=== PATIENT | male | born 1940 | race Caucasian/White ===

== ENCOUNTER 2019-08-07 00:08 | Inpatient (IN) | payer OTHER ==
--- NOTE | 2019-08-07 00:46 | PDOC ---
History of Present Illness - General Stated Complaint: SHORTNESS OF BREATH Time Seen by Provider: 08/07/19 00:45 - History of Present Illness Initial Comments: 08/07/19 01:00 78M with pmh of skin basal cell carcinoma, blindness, hemiplegia s/p strokex2 on Plavix presents sent from [facility] on [facility] who presetns with shortness of breath and fever. The patient was vomiting at 2100 at the nursing facility and was satting to 75 on RA. He was placed on 2L NC without effect. By EMS he was placed on 15L NRB. No prior illness earlier in the week. [facility] provides no further collateral. ROS - limited 2/d disabiltiy PE GENERAL: AMS, can follow some commants HEAD: No signs of trauma, normocephalic, atraumatic EYES: PERRLA, EOMI, sclera anicteric, conjunctiva clear ENT: wearing NRB NECK: Normal ROM, supple LUNGS: No distress, speaks full sentences, clear to auscultation anteriorly, unable to sit up for posterior auscultation HEART: Regular rate and rhythm, normal S1 and S2, no murmurs, rubs or gallops, peripheral pulses normal and equal bilaterally. ABDOMEN: Soft, nontender, No guarding, no rebound. No masses EXTREMITIES : No clubbing or cyanosis. NEUROLOGICAL: AMS SKIN: slightly diaphoretic MDM DDX including but not limited to: pneumonia r.o acs vs chf W/U: - sepsis set TX: - tyleno, ivf ED Course: lactic 2.8, increased neutrophil % plan for admission Rosa Fraga, PGY2 Emergency Medicine 08/07/19 17:18 Past History - Past Medical History Allergies/Adverse Reactions: Allergies Allergy/AdvReac Type Severity Reaction Status Date / Time No Known Allergies Allergy Verified 09/24/17 13:43 Home Medications: Ambulatory Orders Atorvastatin Ca [Lipitor] 10 mg PO HS 08/07/19 B1/B2/Niacin/B12/Protease [B-Complex with B-12 Tablet] 1 each PO DAILY 08/07/19 Chlorpromazine HCl 25 mg PO DAILY 08/07/19 Cholecalciferol (Vitamin D3) [Vitamin D] 2,000 unit PO DAILY 08/07/19 Clopidogrel Bisulfate [Plavix -] 75 mg PO DAILY 08/07/19 Docusate Sodium [Colace] 100 mg PO DAILY 08/07/19 Famotidine [Pepcid] 40 mg PO DAILY 08/07/19 Ferrous Sulfate 325 mg PO DAILY 08/07/19 Losartan Potassium [Cozaar -] 50 mg PO DAILY 08/07/19 Metoprolol Succinate [Toprol Xl] 50 mg PO DAILY 08/07/19 Multivitamin [One-Daily Multi-Vitamin] 1 each PO DAILY 08/07/19 Polyethylene Glycol 3350 [Miralax (For Daily Use) -] 17 gm PO PRN 08/07/19 Potassium Chloride 10 meq PO DAILY 08/07/19 Sertraline HCl [Zoloft] 100 mg PO DAILY 08/07/19 Tramadol HCl [Ultram] 50 mg PO BID 08/07/19 Cancer: Yes (basal cell carcinoma of breast) CVA: Yes (tia, 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) HTN: Yes Hypercholesterolemia: Yes Psychiatric Problems: Yes (anxiety, major depressive disorder) - Surgical History Appendectomy: Yes - Suicide/Smoking/Psychosocial Hx Smoking History: Never smoked Have you smoked in the past 12 months: No If you are a former smoker, when did you quit?: 50-60 years ago Hx Alcohol Use: No Drug/Substance Use Hx: No Substance Use Type: None Hx Substance Use Treatment: No ED Treatment Course - LABORATORY CBC & Chemistry Diagram: 08/07/19 06:22 08/07/19 06:22 *DC/Admit/Observation/Transfer Diagnosis at time of Disposition: Pneumonia - Discharge Dispostion Decision to Admit order: Yes - Referrals - Patient Instructions - Post Discharge Activity
[2019-08-07] MEDS ORDERED: ACETAMINOPHEN 1000 MG/100 ML VIAL (NON FORMULARY) IVPB ONE (00:47)
[2019-08-07] MEDS ORDERED: SODIUM CHLORIDE 1,000 ML IV SCH ×2 (01:00→01:52)
--- NOTE | 2019-08-07 01:14 | PDOC ---
Attending Attestation - Resident Resident Name: Rosa Fraga - ED Attending Attestation I have performed the following: I have examined & evaluated the patient, The case was reviewed & discussed with the resident, I agree w/resident's findings & plan, Exceptions are as noted - HPI HPI: 08/07/19 01:10 78 yo male [facility] for [facility] and increased work of breathing HPI: Patient started vomiting at 9pm and the nurses at the prison noted that he was hypoxic with a pulse ox in the 70s and required supplemental oxygen - Physicial Exam PE: 08/07/19 01:14 patient was febrile, tachycardic, tachypneic and diaphoretic upon arrival , increased respiratory rate head ncat lungs + rhonchi cvs tachycardia abd flat skin diaphoretic extremities no edema neuro currently nonverbal - Medical Decision Making 08/07/19 01:22 past medical history for CVAs (nontraumatic intracranial hemorrhage), legal blindness, basal cell ca, hyperlipidemia, hypertension concern for aspiration pneumonia, will do sepsis w/u, cxr,antibiotics, supplemental O2 and admission 08/07/19 01:26 08/07/19 02:15 cxr c/w rt infiltrate and pt admitted
[2019-08-07] MEDS ORDERED: ACETAMINOPHEN INJECTION 100 ML IVPB ONE (01:45)
[2019-08-07 01:49] LABS: BASO % 0.1 % (0-2.0); EOS % 0.1 % (0-4.5); HEMATOCRIT 39.5 % (35.4-49); HEMOGLOBIN 12.9 GM/dL (11.7-16.9); LYMPH % 2.3 % (8-40); MCH 26.9 pg (25.7-33.7); MCHC 32.7 g/dl (32.0-35.9); MEAN CELL VOLUME 82.1 fl (80-96); MEAN PLT VOLUME 7.6 fl (7.5-11.1); MONO % 2.3 % (3.8-10.2); NEUT % 95.2 % (42.8-82.8); PLATELET COUNT 216 K/MM3 (134-434); RBC 4.81 M/mm3 (4.00-5.60); RDW 18.9 % (11.9-15.9); WHITE BLOOD COUNT 7.3 K/mm3 (4.0-10.0)
[2019-08-07 01:55] LABS: VENOUS PC02 39.4 mmHg (38-52); VENOUS PH 7.41 (7.31-7.41); VENOUS PO2 57.3 mmHg (28-48)
[2019-08-07] MEDS ORDERED: AMPICILLIN NA/SULBACTAM NA 3 GM in SODIUM CHLORIDE 100 ML IVPB ONE (02:18)
[2019-08-07 02:21] LABS: ALBUMIN 3.6 g/dl (3.4-5.0); BILIRUBIN,TOTAL 0.4 mg/dL (0.2-1); BLOOD UREA NITROGEN 22.9 mg/dL (7-18); CALCIUM 9.2 mg/dL (8.5-10.1); CREATININE 1.1 mg/dL (0.55-1.3); POTASSIUM 4.3 mmol/L (3.5-5.1); TOT PROT 7.3 g/dl (6.4-8.2)
[2019-08-07 02:26] LABS: PLATELET ESTIMATE ADEQUATE
--- NOTE | 2019-08-07 04:02 | HP ---
CHIEF COMPLAINT: shortness of breath, cough PCP: Dr. Mahesh Ceballos HISTORY OF PRESENT ILLNESS: Farooq Wilcox is a 78 year old male with a past medical history of basal cell carcinoma, blindness, stroke, hypertension, colon CA, HLD who presents from [facility] after being reported that he was more short of breath and with a fever. The patient was noted to be sleeping more by his who visits him every day and with an cough with occasional sputum. Otherwise, the patient was in his usual state of health and at his normal mental baseline where he can respond to basic questions, is oriented to self and sometimes to location, and will follow commands. At 2100 on day of admission the patient was vomiting and had a saturation of 75% on room air. EMS arrived and put the patient on a non- rebreather and afterwards was satting at 100%. No sick contacts were [facility]. At interview, the patient is alert and oriented to self only and was denying all acute complaints. Followed all commands. did not note any other acute events for the patient apart from the cough and increased lethargy. ER course was notable for: (1) CXR with noted infiltrates in the R middle and lower lobes. Pleural fluid noted in the R middle and lower lobes. (2) WBC 7.3 , neut 95.2, lactic 2.8 (3) febrile 100.9, 96 on 4L NC (4) given NS 1L, Tylenol, Unasyn PAST MEDICAL HISTORY: as above PAST SURGICAL HISTORY: removal of basal cell carcinoma (as endorsed by , unsure of location) Social History: Smoking: unclear (possible when younger) Alcohol: denied Drugs: denied Lives at [facility] Family History: Unable to obtain, uncertain of family hx Allergies No Known Allergies Allergy (Verified 09/24/17 13:43) HOME MEDICATIONS: Home Medications Medication Instructions Recorded Atorvastatin Ca [Lipitor] 10 mg PO HS 08/07/19 B1/B2/Niacin/B12/Protease 1 each PO DAILY 08/07/19 [B-Complex with B-12 Tablet] Chlorpromazine HCl 25 mg PO DAILY 08/07/19 Cholecalciferol (Vitamin D3) 2,000 unit PO DAILY 08/07/19 [Vitamin D] Clopidogrel Bisulfate [Plavix -] 75 mg PO DAILY 08/07/19 Docusate Sodium [Colace] 100 mg PO DAILY 08/07/19 Famotidine [Pepcid] 40 mg PO DAILY 08/07/19 Ferrous Sulfate 325 mg PO DAILY 08/07/19 Losartan Potassium [Cozaar -] 50 mg PO DAILY 08/07/19 Metoprolol Succinate [Toprol Xl] 50 mg PO DAILY 08/07/19 Multivitamin [One-Daily 1 each PO DAILY 08/07/19 Multi-Vitamin] Polyethylene Glycol 3350 [Miralax 17 gm PO PRN 08/07/19 (For Daily Use) -] Potassium Chloride 10 meq PO DAILY 08/07/19 Sertraline HCl [Zoloft] 100 mg PO DAILY 08/07/19 Tramadol HCl [Ultram] 50 mg PO BID 08/07/19 REVIEW OF SYSTEMS Patient unable to provide adequate review of system due to current disoriented status. All symptoms and history as reported above in HPI PHYSICAL EXAMINATION Vital Signs - 24 hr 08/07/19 00:25 Temperature 100.9 F H Pulse Rate 77 Respiratory 18 Rate Blood Pressure 125/70 O2 Sat by Pulse 96 Oximetry (%) GENERAL: Awake, alert, oriented to self, no acute distress. HEAD: Normal with no signs of trauma. EYES: Pupils equal, round and reactive to light, extraocular movements intact, sclera anicteric, conjunctiva clear. EARS, NOSE, THROAT: Oropharynx with some yellow mucus present. Moist mucous membranes. NECK: Normal range of motion, supple without lymphadenopathy, JVD. LUNGS: Auscultated coarse breath sounds and crackles in the R middle and lower lobes. Decreased breath sounds throughout. HEART: Regular rate and rhythm, normal S1 and S2 without murmur, rub. ABDOMEN: Soft, nontender, not distended, normoactive bowel sounds, no guarding, no rebound, no masses. MUSCULOSKELETAL: Normal range of motion at all joints. No bony deformities or tenderness. UPPER EXTREMITIES: 2+ pulses, warm, well-perfused. No cyanosis. No clubbing. No peripheral edema. LOWER EXTREMITIES: 2+ pulses, warm, well-perfused. No calf tenderness. No peripheral edema. NEUROLOGICAL: Decreased strength on the L upper extremity. Withdrawal to painful stimuli. PSYCHIATRIC: Cooperative. Easily distracted and need reorientation. SKIN: Warm, damp skin, normal turgor, normal capillary refill. Laboratory Results - last 24 hr 0908/07/19 08/07/19 01:05 01:05 01:05 WBC 7.3 RBC 4.81 Hgb 12.9 Hct 39.5 MCV 82.1 MCH 26.9 MCHC 32.7 RDW 18.9 H Plt Count 216 MPV 7.6 Absolute Neuts (auto) 6.9 Total Counted 100 Neutrophils % 95.2 H D Neutrophils % (Manual) 91.0 H Band Neutrophils % 4.0 Lymphocytes % 2.3 L D Lymphocytes % (Manual) 2.0 L Monocytes % 2.3 L Monocytes % (Manual) 2 L Eosinophils % 0.1 D Eosinophils % (Manual) 1.0 Basophils % 0.1 Nucleated RBC % 0 Platelet Estimate Adequate Platelet Comment No clumping noted VBG pH POC VBG pCO2 POC VBG pO2 VBG HCO3 VBG O2 Sat (Chalo) VBG Base Excess Sodium 142 Potassium 4.3 Chloride 106 Carbon Dioxide 24 Anion Gap 11 BUN 22.9 H Creatinine 1.1 Est GFR (CKD-EPI)AfAm 74.65 Est GFR (CKD-EPI)NonAf 64.41 Random Glucose 117 H Lactic Acid Calcium 9.2 Total Bilirubin 0.4 AST 36 ALT 28 Alkaline Phosphatase 88 Troponin I B-Natriuretic Peptide 374.3 Total Protein 7.3 Albumin 3.6 08/07/19 08/07/19 08/07/19 01:05 01:05 01:05 WBC RBC Hgb Hct MCV MCH MCHC RDW Plt Count MPV Absolute Neuts (auto) Total Counted Neutrophils % Neutrophils % (Manual) Band Neutrophils % Lymphocytes % Lymphocytes % (Manual) Monocytes % Monocytes % (Manual) Eosinophils % Eosinophils % (Manual) Basophils % Nucleated RBC % Platelet Estimate Platelet Comment VBG pH 7.41 POC VBG pCO2 39.4 POC VBG pO2 57.3 H VBG HCO3 24.3 VBG O2 Sat (Chalo) 87.2 H VBG Base Excess 0.2 Sodium Potassium Chloride Carbon Dioxide Anion Gap BUN Creatinine Est GFR (CKD-EPI)AfAm Est GFR (CKD-EPI)NonAf Random Glucose Lactic Acid 2.8 H* Calcium Total Bilirubin AST ALT Alkaline Phosphatase Troponin I < 0.02 B-Natriuretic Peptide Total Protein Albumin EKG--> NSR, non-specific T wave inversion in lead III, no ST segment changes, left anterior fascicular block? QTc 463 ASSESSMENT/PLAN: Farooq Wilcox is a 78 year old male with a past medical history of basal cell carcinoma, blindness, stroke, hypertension, colon CA, HLD who is admitted for shortness of breath likely secondary to pneumonia. Shortness of Breath Hypertension Hyperlipidemia Shortness of Breath - likely secondary to pneumonia as seen in CXR, febrile state, left shift on CBC , lactic acidosis - CURB-65 score 2, needs inpatient treatment - start antibiotics ceftriaxone and azithromycin - sputum cultures - urine legionella and strep pneumo antigens - blood cultures - O2 as needed, titrate down as tolerated - ABG ordered, if poor O2 on ABG, may need Venti-mask for proper oxygenation - hx of malignancy, hypoxia, and poor mobility, ordered CTA to rule out PE - lactic acidosis 2.8, continue fluids - echocardiogram to assess for systolic function and alternative causes of shortness of breath - physical therapy to assist with poor mobility Hypertension - continue home meds Hyperlipidemia - continue home meds FEN - NS at 75 cc/hr, adjust as needed with results of echo - continue to monitor electrolytes and replete as necessary - sodium controlled diet Prophylaxis - Lovenox 40 units subq daily Code - full code IVANNA KEENAN DO - PGY-1 Visit type - Emergency Visit Emergency Visit: Yes Care time: The patient presented to the Emergency Department on the above date and was hospitalized for further evaluation of their emergent condition. - New Patient This patient is new to me today: Yes Date on this admission: 08/07/19 - Critical Care Critical Care patient: No
[2019-08-07 04:24] LABS: ARTERIAL BLD GAS O2 SATURATION 93.4 % (95-98); ARTERIAL BLOOD GAS BASE EXCESS -0.1 meq/l (-2-2); ARTERIAL BLOOD GAS pH 7.44 (7.35-7.45)
[2019-08-07] MEDS ORDERED: CEFTRIAXONE 1 GM/50 ML BAG ONE ×2 (04:38→09:57)
[2019-08-07] MEDS ORDERED: POLYETHYLENE GLYCOL 3350 119 GM BTL PO PRN (04:45)
[2019-08-07] MEDS ORDERED: AZITHROMYCIN IVPB 500 MG/250 ML BAG IVPB ONE ×2 (04:46→09:57)
[2019-08-07] MEDS: CEFTRIAXONE 1,000 MG in DEXTROSE 5%-WATER - 50 ML IVPB SCH ×2 (04:47→23:36)
[2019-08-07] MEDS: SODIUM CHLORIDE 1,000 ML IV SCH ×2 (04:47→17:42)
--- NOTE | 2019-08-07 04:57 | PN ---
Teaching Attending Note Name of Resident: Dequan Dominguez ATTENDING PHYSICIAN STATEMENT I saw and evaluated the patient. I reviewed the resident's note and discussed the case with the resident. I agree with the resident's findings and plan as documented. SUBJECTIVE: 78 year old male with a past medical history of basal cell carcinoma, blindness , stroke, hypertension, colon CA, HLD who presents from [facility] after being reported that he was more short of breath and with a fever, productive cough. As per documentation, found to be desaturating into the 70s, placed on NRM by EMS. OBJECTIVE: Last Vital Signs Temp Pulse Resp BP Pulse Ox 100.9 F H 77 18 125/70 96 08/07/19 00:25 08/07/19 00:25 08/07/19 00:25 08/07/19 00:25 08/07/19 00:25 general- nontoxic, diaphoretic neuro- disoriented to time cv-s1+s2+rrr chest -b/l breath sounds, some right basilar crackles abdomen - soft , nt limbs contracted, noncyanotic Abnormal Lab Results 08/07/19 08/07/19 08/07/19 01:05 01:05 01:05 RDW 18.9 H Neutrophils % 95.2 H D Neutrophils % (Manual) 91.0 H Lymphocytes % 2.3 L D Lymphocytes % (Manual) 2.0 L Monocytes % 2.3 L Monocytes % (Manual) 2 L ABG pO2 at Pt Temp ABG O2 Sat (Measured) POC VBG pO2 VBG O2 Sat (Chalo) BUN 22.9 H Random Glucose 117 H Lactic Acid 2.8 H* 08/07/19 ct 01:05 04:11 RDW Neutrophils % Neutrophils % (Manual) Lymphocytes % Lymphocytes % (Manual) Monocytes % Monocytes % (Manual) ABG pO2 at Pt Temp 69.0 L ABG O2 Sat (Measured) 93.4 L POC VBG pO2 57.3 H VBG O2 Sat (Chalo) 87.2 H BUN Random Glucose Lactic Acid imaging reviewed ASSESSMENT AND PLAN: Acute hypoxic respiratory failure Sepsis secondary to community acquired pneumonia. Patchy infiltrates seen on cxr. received unasyn ER. +lactic acidosis. SHould r/o PE, especially given history of cva and bedbound state. Altered mentation- disoriented to time. Uncertain what baseline is. PRobable metabolic encephalopathy due to underlying infection. -med/surg -supplemental oxygen via NC or ventimask- goal po2- 80-100 -abg -sputum culture -blood cultures -urine legionella ag -ceftriaxone -azithromycin -CTA to r/o PE -respiratory watch -monitor vs closely -full code
[2019-08-07] MEDS: AZITHROMYCIN IVPB 500 MG in DEXTROSE 5%-WATER - 250 ML IVPB SCH ×2 (05:17→10:18)
[2019-08-07 07:45] LABS: BASO % 0.1 % (0-2.0); HEMATOCRIT 34.9 % (35.4-49); HEMOGLOBIN 11.3 GM/dL (11.7-16.9); LYMPH % 3.6 % (8-40); MCHC 32.5 g/dl (32.0-35.9); MEAN CELL VOLUME 83.1 fl (80-96); MONO % 2.6 % (3.8-10.2); NEUT % 93.7 % (42.8-82.8); PLATELET COUNT 173 K/MM3 (134-434); RDW 18.6 % (11.9-15.9); WHITE BLOOD COUNT 8.3 K/mm3 (4.0-10.0)
[2019-08-07 07:47] LABS: ALBUMIN 2.9 g/dl (3.4-5.0); BILIRUBIN,TOTAL 0.4 mg/dL (0.2-1); BLOOD UREA NITROGEN 21.9 mg/dL (7-18); CALCIUM 8.5 mg/dL (8.5-10.1); MAGNESIUM 2.1 mg/dL (1.8-2.4); PHOSPHOROUS 2.7 mg/dL (2.5-4.9); POTASSIUM 4.3 mmol/L (3.5-5.1); TOT PROT 6.2 g/dl (6.4-8.2)
[2019-08-07] MEDS ORDERED: PT OWN MED DRAWER 7, Y5N ONE (08:20)
[2019-08-07] MEDS ORDERED: traMADol HCL 50 MG TABLET ONE (09:56)
[2019-08-07] MEDS ORDERED: B1 PO SCH (10:00)
[2019-08-07] MEDS ORDERED: PROTEASE PO SCH (10:00)
[2019-08-07] MEDS ORDERED: traMADol HCL 50 MG TABLET PO SCH (10:00)
[2019-08-07] MEDS ORDERED: PATIENT'S OWN MEDICATION (NON-FORMULARY) (Potassium Chloride [Potassium Chloride] 10 MEQ) PO SCH (10:00)
[2019-08-07] MEDS ORDERED: B12 PO SCH (10:00)
[2019-08-07] MEDS ORDERED: B2 PO SCH (10:00)
[2019-08-07] MEDS ORDERED: PATIENT'S OWN MEDICATION (NON-FORMULARY) (Ferrous Sulfate [Ferrous Sulfate] 325 MG) PO SCH (10:00)
[2019-08-07] MEDS ORDERED: PATIENT'S OWN MEDICATION (NON-FORMULARY) (Famotidine [Pepcid] 40 MG) PO SCH (10:00)
[2019-08-07] MEDS ORDERED: NIACIN PO SCH (10:00)
[2019-08-07] MEDS ORDERED: PATIENT'S OWN MEDICATION (NON-FORMULARY) (Sertraline Hcl [Zoloft] 100 MG) PO SCH (10:00)
[2019-08-07] MEDS ORDERED: [UNRECOGNIZED DRUG - OTHER] PO SCH (10:00)
[2019-08-07] MEDS: MULTIVITAMINS (DAILY MVI) TABLET (FP) PO SCH (10:17)
[2019-08-07] MEDS: DOCUSATE SODIUM 100 MG CAPSULE (FP) PO SCH (10:17)
[2019-08-07] MEDS: CLOPIDOGREL BISULFATE 75 MG TABLET (FP) PO SCH (10:17)
[2019-08-07] MEDS: ENOXAPARIN NA (PORCINE) 40 MG/0.4 ML DISP.SYRIN SQ SCH (10:17)
[2019-08-07] MEDS: POTASSIUM CHLORIDE TABS 10 MEQ TABLET.ER (FP) PO SCH (10:17)
[2019-08-07] MEDS: FERROUS SO4 325 MG TABLET (FP) PO SCH (10:17)
[2019-08-07] MEDS: LOSARTAN POTASSIUM 50 MG TABLET (FP) PO SCH (10:17)
[2019-08-07] MEDS: CHOLECALCIFEROL (VIT D3) 1,000 UNIT (25 MCG) TABLET PO SCH (10:18)
[2019-08-07] MEDS: VITAMIN B COMPLEX W/C COMBO TABLET (FP) PO SCH (10:18)
[2019-08-07] MEDS: RANITIDINE HCL 150 MG TABLET (FP) PO SCH (10:18)
[2019-08-07] MEDS: SERTRALINE HCL 50 MG TABLET (FP) PO SCH (10:18)
[2019-08-07] MEDS ORDERED: PIPERACILLIN/TAZOB 2.25 GM 2.25 GM in DEXTROSE 5%-WATER - 50 ML IVPB SCH (10:45)
--- NOTE | 2019-08-07 10:54 | EKG ---
Test Reason : Blood Pressure : / mmHG Vent. Rate : 080 BPM Atrial Rate : 080 BPM P-R Int : 128 ms QRS Dur : 088 ms QT Int : 402 ms P-R-T Axes : 004 -62 024 degrees QTc Int : 463 ms NORMAL SINUS RHYTHM LEFT ANTERIOR FASCICULAR BLOCK ABNORMAL ECG WHEN COMPARED WITH ECG OF 14-MAR-2016 16:10, NO SIGNIFICANT CHANGE WAS FOUND Confirmed by MARYLIN ORDAZ, JUICE ([id number]) on 08/07/2019 10:53:59 AM Referred By: Confirmed By:JUICE COULTER MD
[2019-08-07] MEDS ORDERED: PIPERACILLIN/TAZOB 3.375 GM 3.375 GM in DEXTROSE 5%-WATER - 50 ML IVPB SCH (11:30)
[2019-08-07 12:25] LABS: ANISOCYTOSIS 1+; MACROCYTOSIS 1+; OVALOCYTE 1+; PLATELET ESTIMATE NORMAL
--- NOTE | 2019-08-07 13:57 | ECHO ---
Name: KARISHMA HAGEN Exam:Adult Echocardiogram Study Date: 08/07/2019 10:21 AM Age: 78 yrs Reason For Study: R/O CHF Height: 64 in Weight: 147 lb BSA: 1.7 m2 MMode/2D Measurements & Calculations IVSd: 0.86 cm Ao root diam: 3.4 cm LVIDd: 3.9 cm LA dimension: 3.4 cm LVIDs: 2.6 cm LVPWd: 0.86 cm EDV(Teich): 65.5 ml LVOT diam: 2.0 cm ESV(Teich): 25.6 ml Doppler Measurements & Calculations MV E max emiliano: 64.2 cm/sec Ao V2 max: 212.4 cm/sec MV A max emiliano: 103.2 cm/sec Ao max P.0 mmHg MV E/A: 0.62 Ao V2 mean: 136.1 cm/sec MV dec time: 0.19 sec Ao mean P.0 mmHg Ao V2 VTI: 40.7 cm REDD(I,D): 1.7 cm2 AI P1/2t: 403.7 msec REDD(V,D): 1.6 cm2 AI max emiliano: 329.7 cm/sec LV V1 max P.6 mmHg AI max P.6 mmHg LV V1 mean P.5 mmHg AI dec slope: 239.2 cm/sec2 LV V1 max: 107.6 cm/sec LV V1 mean: 75.2 cm/sec LV V1 VTI: 22.5 cm SV(LVOT): 69.2 ml TR max emiliano: 226.2 cm/sec TR max P.8 mmHg Med Peak E' Emiliano: 8.2 cm/sec Med E/e': 7.8 Lat Peak E' Emiliano: 9.7 cm/sec Lat E/e': 6.6 Procedure A two-dimensional transthoracic echocardiogram with color flow and Doppler was performed. Left Ventricle The left ventricular size, thickness and function are normal. The left ventricular ejection fraction is normal. E/A reversal consistent with but not diagnostic of poor LV compliance. The left ventricular w all motion is normal. Right Ventricle The right ventricle is normal in size and function. Atria Normal left and right atrial size and function. Mitral Valve There is mild mitral valve thickening. There is no mitral valve stenosis. There is trace to mild mitr al regurgitation. Tricuspid Valve There is mild tricuspid valve thickening. There is no tricuspid stenosis. There is mild to moderate t ricuspid regurgitation. Right ventricular systolic pressure is normal. The tricuspid regurgitant jet is eccent rically directed. Aortic Valve The aortic valve is not well visualized. No hemodynamically significant valvular aortic stenosis. Mil d to moderate aortic regurgitation. Pulmonic Valve The pulmonic valve is not well visualized. There is no pulmonic valvular stenosis. There is no pulmon ic valvular regurgitation. Great Vessels The aortic root is normal size. Pericardium/Pleura There is no pericardial effusion. Interpretation Summary The left ventricular size, thickness and function are normal The left ventricular ejection fraction is normal. The left ventricular wall motion is normal. There is trace to mild mitral regurgitation. Right ventricular systolic pressure is normal. E/A reversal consistent with but not diagnostic of poor LV compliance Mild to moderate aortic regurgitation. There is mild to moderate tricuspid regurgitation. The tricuspid regurgitant jet is eccentrically directed. MD Andre Mejia 08/07/2019 01:57 PM
--- NOTE | 2019-08-07 14:42 | PN ---
Physical Exam: SUBJECTIVE: Patient seen and examined at bedside. Pt complains of headache. No SOB, no fever, chills, pain. OBJECTIVE: Vital Signs Period Temp Pulse Resp BP Sys/Herrmann Pulse Ox Last 24 Hr 100.9 F 72-77 17-18 125-125/63-70 93-96 Gen: NAD, AAOx1 HEENT: NCAT, EOMI Neck: supple, no jvd Cardio: rrr, ns1s2, no mrg Pulm: bilateral ronchi Abd: soft, nontender, nondistended Laboratory Results - last 24 hr 08/07/19 08/07/19 08/07/19 01:05 01:05 01:05 WBC 7.3 RBC 4.81 Hgb 12.9 Hct 39.5 MCV 82.1 MCH 26.9 MCHC 32.7 RDW 18.9 H Plt Count 216 MPV 7.6 Absolute Neuts (auto) 6.9 Total Counted 100 Neutrophils % 95.2 H D Neutrophils % (Manual) 91.0 H Band Neutrophils % 4.0 Lymphocytes % 2.3 L D Lymphocytes % (Manual) 2.0 L Monocytes % 2.3 L Monocytes % (Manual) 2 L Eosinophils % 0.1 D Eosinophils % (Manual) 1.0 Basophils % 0.1 Basophils % (Manual) Myelocytes % (Man) Promyelocytes % (Man) Blast Cells % (Manual) Nucleated RBC % 0 Metamyelocytes Hypochromia Platelet Estimate Adequate Platelet Comment No clumping noted Polychromasia Poikilocytosis Anisocytosis Microcytosis Macrocytosis Ovalocytes Anticoagulation Therapy Puncture Site ABG pH ABG pCO2 at Pt Temp ABG pO2 at Pt Temp ABG HCO3 ABG O2 Sat (Measured) ABG O2 Content ABG Base Excess Gael Test VBG pH POC VBG pCO2 POC VBG pO2 VBG HCO3 VBG O2 Sat (Chalo) VBG Base Excess O2 Delivery Device Oxygen Flow Rate Vent Mode Vent Rate Mechanical Rate Pressure Support Vent Sodium 142 Potassium 4.3 Chloride 106 Carbon Dioxide 24 Anion Gap 11 BUN 22.9 H Creatinine 1.1 Est GFR (CKD-EPI)AfAm 74.65 Est GFR (CKD-EPI)NonAf 64.41 Random Glucose 117 H Lactic Acid Calcium 9.2 Phosphorus Magnesium Total Bilirubin 0.4 AST 36 ALT 28 Alkaline Phosphatase 88 Troponin I B-Natriuretic Peptide 374.3 Total Protein 7.3 Albumin 3.6 08/07/19 08/07/19 08/07/19 01:05 01:05 01:05 WBC RBC Hgb Hct MCV MCH MCHC RDW Plt Count MPV Absolute Neuts (auto) Total Counted Neutrophils % Neutrophils % (Manual) Band Neutrophils % Lymphocytes % Lymphocytes % (Manual) Monocytes % Monocytes % (Manual) Eosinophils % Eosinophils % (Manual) Basophils % Basophils % (Manual) Myelocytes % (Man) Promyelocytes % (Man) Blast Cells % (Manual) Nucleated RBC % Metamyelocytes Hypochromia Platelet Estimate Platelet Comment Polychromasia Poikilocytosis Anisocytosis Microcytosis Macrocytosis Ovalocytes Anticoagulation Therapy Puncture Site ABG pH ABG pCO2 at Pt Temp ABG pO2 at Pt Temp ABG HCO3 ABG O2 Sat (Measured) ABG O2 Content ABG Base Excess Gael Test VBG pH 7.41 POC VBG pCO2 39.4 POC VBG pO2 57.3 H VBG HCO3 24.3 VBG O2 Sat (Chalo) 87.2 H VBG Base Excess 0.2 O2 Delivery Device Oxygen Flow Rate Vent Mode Vent Rate Mechanical Rate Pressure Support Vent Sodium Potassium Chloride Carbon Dioxide Anion Gap BUN Creatinine Est GFR (CKD-EPI)AfAm Est GFR (CKD-EPI)NonAf Random Glucose Lactic Acid 2.8 H* Calcium Phosphorus Magnesium Total Bilirubin AST ALT Alkaline Phosphatase Troponin I < 0.02 B-Natriuretic Peptide Total Protein Albumin 08/07/19 08/07/19 08/07/19 04:11 06:00 06:22 WBC 8.3 RBC 4.20 Hgb 11.3 L Hct 34.9 L MCV 83.1 MCH 27.0 MCHC 32.5 RDW 18.6 H Plt Count 173 MPV 8.0 Absolute Neuts (auto) 7.8 Total Counted Neutrophils % 93.7 H Neutrophils % (Manual) 83.0 H Band Neutrophils % 10.0 Lymphocytes % 3.6 L D Lymphocytes % (Manual) 4.0 L D Monocytes % 2.6 L Monocytes % (Manual) 3 L Eosinophils % 0.0 D Eosinophils % (Manual) 0.0 D Basophils % 0.1 Basophils % (Manual) 0.0 Myelocytes % (Man) 0 Promyelocytes % (Man) 0 Blast Cells % (Manual) 0 Nucleated RBC % 0 Metamyelocytes 0 Hypochromia 0 Platelet Estimate Normal Platelet Comment Present Polychromasia 0 Poikilocytosis 1+ Anisocytosis 1+ Microcytosis 0 Macrocytosis 1+ Ovalocytes 1+ Anticoagulation Therapy No Result Required. Puncture Site Right radial ABG pH 7.44 ABG pCO2 at Pt Temp 35.0 ABG pO2 at Pt Temp 69.0 L ABG HCO3 23.2 ABG O2 Sat (Measured) 93.4 L ABG O2 Content 15.2 ABG Base Excess -0.1 Gael Test No Result Required. VBG pH POC VBG pCO2 POC VBG pO2 VBG HCO3 VBG O2 Sat (Chalo) VBG Base Excess O2 Delivery Device N/c Oxygen Flow Rate 4 Vent Mode No Result Required. Vent Rate No Result Required. Mechanical Rate No Result Required. Pressure Support Vent No Result Required. Sodium Potassium Chloride Carbon Dioxide Anion Gap BUN Creatinine Est GFR (CKD-EPI)AfAm Est GFR (CKD-EPI)NonAf Random Glucose Lactic Acid 2.2 H* Calcium Phosphorus Magnesium Total Bilirubin AST ALT Alkaline Phosphatase Troponin I B-Natriuretic Peptide Total Protein Albumin 08/07/19 06:22 WBC RBC Hgb Hct MCV MCH MCHC RDW Plt Count MPV Absolute Neuts (auto) Total Counted Neutrophils % Neutrophils % (Manual) Band Neutrophils % Lymphocytes % Lymphocytes % (Manual) Monocytes % Monocytes % (Manual) Eosinophils % Eosinophils % (Manual) Basophils % Basophils % (Manual) Myelocytes % (Man) Promyelocytes % (Man) Blast Cells % (Manual) Nucleated RBC % Metamyelocytes Hypochromia Platelet Estimate Platelet Comment Polychromasia Poikilocytosis Anisocytosis Microcytosis Macrocytosis Ovalocytes Anticoagulation Therapy Puncture Site ABG pH ABG pCO2 at Pt Temp ABG pO2 at Pt Temp ABG HCO3 ABG O2 Sat (Measured) ABG O2 Content ABG Base Excess Gael Test VBG pH POC VBG pCO2 POC VBG pO2 VBG HCO3 VBG O2 Sat (Chalo) VBG Base Excess O2 Delivery Device Oxygen Flow Rate Vent Mode Vent Rate Mechanical Rate Pressure Support Vent Sodium 141 Potassium 4.3 Chloride 108 H Carbon Dioxide 25 Anion Gap 8 BUN 21.9 H Creatinine 1.0 Est GFR (CKD-EPI)AfAm 83.77 Est GFR (CKD-EPI)NonAf 72.28 Random Glucose 112 H Lactic Acid Calcium 8.5 Phosphorus 2.7 Magnesium 2.1 Total Bilirubin 0.4 AST 20 ALT 22 Alkaline Phosphatase 75 Troponin I B-Natriuretic Peptide Total Protein 6.2 L Albumin 2.9 L Active Medications Generic Name Dose Route Start Last Admin Trade Name Ben PRN Reason Stop Dose Admin Atorvastatin Calcium 10 mg 08/07/19 22:00 Lipitor - PO [facility] Cholecalciferol 2,000 unit 08/07/19 10:00 08/07/19 10:18 Vitamin D3 - PO 2,000 unit DAILY PADMINI Administration Clopidogrel Bisulfate 75 mg 08/07/19 10:00 08/07/19 10:17 Plavix - PO 75 mg DAILY PDAMINI Administration Docusate Sodium 100 mg 08/07/19 10:00 08/07/19 10:17 Colace - PO 100 mg DAILY PADMINI Administration Enoxaparin Sodium 40 mg 08/07/19 10:00 08/07/19 10:17 Lovenox - SQ 40 mg DAILY PADMINI Administration Ferrous Sulfate 325 mg 08/07/19 10:00 08/07/19 10:17 Feosol - PO 325 mg DAILY PADMINI Administration Sodium Chloride 1,000 mls @ 75 mls/hr 08/07/19 04:30 08/07/19 04:47 Normal Saline - IV 75 mls/hr ASDIR PADMINI Administration Azithromycin 500 mg/ Dextrose 250 mls @ 250 mls/hr 08/07/19 04:17 08/07/19 10 :18 IVPB 250 mls/hr DAILY PADMINI Administration Piperacillin Sod/Tazobactam 50 mls @ 100 mls/hr 08/07/19 11:30 Sod 3.375 gm/ Dextrose IVPB Q8H-IV PADMINI Protocol Piperacillin Sod/Tazobactam 50 mls @ 100 mls/hr 08/07/19 11:30 08/07/19 12:35 Sod 3.375 gm/ Dextrose IVPB 08/08/19 11:29 100 mls/hr Q8H-IV PADMINI Administration Protocol Losartan Potassium 50 mg 08/07/19 10:00 08/07/19 10:17 Cozaar - PO 50 mg DAILY PADMINI Administration Metoprolol Succinate 50 mg 08/07/19 10:00 08/07/19 10:18 Toprol Xl - PO 50 mg DAILY PADMINI Administration Multivitamins 1 each 08/07/19 10:00 08/07/19 10:18 Total B With C - PO 1 each DAILY PADMINI Administration Multivitamins/Minerals/Vitamin C 1 tab 08/07/19 10:00 08/07/19 10:17 Tab-A-Vit - PO 1 tab DAILY PADMINI Administration Polyethylene Glycol 17 gm 08/07/19 04:45 Miralax (For Daily Use) - PO DAILY PRN CONSTIPATION Potassium Chloride 10 meq 08/07/19 10:00 08/07/19 10:17 K-Dur - PO 10 meq DAILY PADMINI Administration Ranitidine HCl 150 mg 08/07/19 10:00 08/07/19 10:18 Zantac - PO 150 mg DAILY PADMINI Administration Sertraline HCl 100 mg 08/07/19 10:00 08/07/19 10:18 Zoloft - PO 100 mg DAILY PADMINI Administration Tramadol HCl 50 mg 08/07/19 10:00 08/07/19 10:18 Ultram - PO 50 mg BID PADMINI Administration ASSESSMENT/PLAN: Pt is a 78 year old male with a past medical history of basal cell carcinoma, blindness, stroke, hypertension, colon CA, HLD who is admitted for shortness of breath likely secondary to pneumonia. Shortness of Breath - likely secondary to pneumonia as seen in CXR/CT, febrile state, left shift on CBC, lactic acidosis - CURB-65 score 2, needs inpatient treatment - start antibiotics ceftriaxone and azithromycin - BCx, sputum cultures, Urine Ag pending - O2 as needed, titrate down as tolerated - ABG ordered, if poor O2 on ABG, may need Venti-mask for proper oxygenation - CTA neg for PE - lactic acidosis, continue fluids - echocardiogram grossly normal -PT Hypertension - Metoprolol Succinate, Losartan Hyperlipidemia - Atorvastatin Visit type - Emergency Visit Emergency Visit: Yes ED Registration Date: 08/07/19 Care time: The patient presented to the Emergency Department on the above date and was hospitalized for further evaluation of their emergent condition. - New Patient This patient is new to me today: Yes Date on this admission: 08/07/19 - Critical Care Critical Care patient: No ATTENDING PHYSICIAN STATEMENT I saw and evaluated the patient. I reviewed the resident's note and discussed the case with the resident. I agree with the resident's findings and plan as documented. SUBJECTIVE: OBJECTIVE: ASSESSMENT AND PLAN:
[2019-08-07] MEDS ORDERED: PIPERACILLIN/TAZOB 3.375 GM 3.375 GM/50 ML BAG IVPB ONE (15:00)
--- NOTE | 2019-08-07 15:58 | PN ---
Progress Note (short form) - Note Progress Note: ID consult dictated imp/reccd 78 yo kye/p cva 3 years ago with left sided weakness, has been residing at [facility] for 3 eyars now- nonambulatory admitted with fever, hypoxia and patchy infiltrates on cxray and chest ct +vomiting at [place] probable aspiration pneumonia history of cva continue zosyn and zithromax f/u cultures f/u urinary antigens d/w at bedside Problem List - Problems (1) Pneumonia Code(s): J18.9 - PNEUMONIA, UNSPECIFIED ORGANISM (2) History of CVA (cerebrovascular accident) Code(s): Z86.73 - PRSNL HX OF TIA (TIA), AND CEREB INFRC W/O RESID DEFICITS
[2019-08-07] MEDS ORDERED: traMADol HCL 50 MG TABLET PO PRN (16:23)
--- NOTE | 2019-08-07 16:28 | PN ---
Teaching Attending Note Name of Resident: Arslan Hilario ATTENDING PHYSICIAN STATEMENT I saw and evaluated the patient. I reviewed the resident's note and discussed the case with the resident. I agree with the resident's findings and plan as documented with exceptions below. SUBJECTIVE: Patient seen and examined. Denies any pain, dyspnea or weakness. OBJECTIVE: Vital Signs Period Temp Pulse Resp BP Sys/Herrmann Pulse Ox Last 24 Hr 99.0 F-100.9 F 68-77 17-20 119-125/60-70 93-96 Intake & Output 08/04/19 08/05/19 08/06/19 08/07/19 23:59 23:59 23:59 23:59 Weight 147 lb General: sitting in bed, mild tachypnea, use of accessory muscles of respiration CVS:S1S2 regular Neck: soft, supple Chest: decreased air entry all over with scattered rales Abdomen:soft, NT, ND Extremities: no edema Home Medications Medication Instructions Recorded Atorvastatin Ca [Lipitor] 10 mg PO HS 08/07/19 B1/B2/Niacin/B12/Protease 1 each PO DAILY 08/07/19 [B-Complex with B-12 Tablet] Chlorpromazine HCl 25 mg PO DAILY 08/07/19 Cholecalciferol (Vitamin D3) 2,000 unit PO DAILY 08/07/19 [Vitamin D] Clopidogrel Bisulfate [Plavix -] 75 mg PO DAILY 08/07/19 Docusate Sodium [Colace] 100 mg PO DAILY 08/07/19 Famotidine [Pepcid] 40 mg PO DAILY 08/07/19 Ferrous Sulfate 325 mg PO DAILY 08/07/19 Losartan Potassium [Cozaar -] 50 mg PO DAILY 08/07/19 Metoprolol Succinate [Toprol Xl] 50 mg PO DAILY 08/07/19 Multivitamin [One-Daily 1 each PO DAILY 08/07/19 Multi-Vitamin] Polyethylene Glycol 3350 [Miralax 17 gm PO PRN 08/07/19 (For Daily Use) -] Potassium Chloride 10 meq PO DAILY 08/07/19 Sertraline HCl [Zoloft] 100 mg PO DAILY 08/07/19 Tramadol HCl [Ultram] 50 mg PO BID 08/07/19 Active Medications Atorvastatin Calcium (Lipitor -) 10 mg PO [facility] Cholecalciferol (Vitamin D3 -) 2,000 unit PO DAILY [facility] Last Admin: 08/07/19 10:18 Dose: 2,000 unit Clopidogrel Bisulfate (Plavix -) 75 mg PO DAILY [facility] Last Admin: 08/07/19 10:17 Dose: 75 mg Docusate Sodium (Colace -) 100 mg PO DAILY [facility] Last Admin: 08/07/19 10:17 Dose: 100 mg Enoxaparin Sodium (Lovenox -) 40 mg SQ DAILY [facility] Last Admin: 08/07/19 10:17 Dose: 40 mg Ferrous Sulfate (Feosol -) 325 mg PO DAILY [facility] Last Admin: 08/07/19 10:17 Dose: 325 mg Sodium Chloride (Normal Saline -) 1,000 mls @ 75 mls/hr IV ASDIR [facility] Last Admin: 08/07/19 04:47 Dose: 75 mls/hr Azithromycin 500 mg/ Dextrose 250 mls @ 250 mls/hr IVPB DAILY [facility] Last Admin: 08/07/19 10:18 Dose: 250 mls/hr Piperacillin Sod/Tazobactam (Sod 3.375 gm/ Dextrose) 50 mls @ 100 mls/hr IVPB Q8H-IV [facility]; Protocol Losartan Potassium (Cozaar -) 50 mg PO DAILY [facility] Last Admin: 08/07/19 10:17 Dose: 50 mg Metoprolol Succinate (Toprol Xl -) 50 mg PO DAILY [facility] Last Admin: 08/07/19 10:18 Dose: 50 mg Multivitamins (Total B With C -) 1 each PO DAILY [facility] Last Admin: 08/07/19 10:18 Dose: 1 each Multivitamins/Minerals/Vitamin C (Tab-A-Vit -) 1 tab PO DAILY [facility] Last Admin: 08/07/19 10:17 Dose: 1 tab Polyethylene Glycol (Miralax (For Daily Use) -) 17 gm PO DAILY PRN PRN Reason: CONSTIPATION Potassium Chloride (K-Dur -) 10 meq PO DAILY [facility] Last Admin: 08/07/19 10:17 Dose: 10 meq Ranitidine HCl (Zantac -) 150 mg PO DAILY [facility] Last Admin: 08/07/19 10:18 Dose: 150 mg Sertraline HCl (Zoloft -) 100 mg PO DAILY [facility] Last Admin: 08/07/19 10:18 Dose: 100 mg Tramadol HCl (Ultram -) 50 mg PO BID PRN PRN Reason: PAIN LEVEL 7 - 10 Laboratory Results - last 24 hr 08/07/19 08/07/19 08/07/19 01:05 01:05 01:05 WBC 7.3 RBC 4.81 Hgb 12.9 Hct 39.5 MCV 82.1 MCH 26.9 MCHC 32.7 RDW 18.9 H Plt Count 216 MPV 7.6 Absolute Neuts (auto) 6.9 Total Counted 100 Neutrophils % 95.2 H D Neutrophils % (Manual) 91.0 H Band Neutrophils % 4.0 Lymphocytes % 2.3 L D Lymphocytes % (Manual) 2.0 L Monocytes % 2.3 L Monocytes % (Manual) 2 L Eosinophils % 0.1 D Eosinophils % (Manual) 1.0 Basophils % 0.1 Basophils % (Manual) Myelocytes % (Man) Promyelocytes % (Man) Blast Cells % (Manual) Nucleated RBC % 0 Metamyelocytes Hypochromia Platelet Estimate Adequate Platelet Comment No clumping noted Polychromasia Poikilocytosis Anisocytosis Microcytosis Macrocytosis Ovalocytes Anticoagulation Therapy Puncture Site ABG pH ABG pCO2 at Pt Temp ABG pO2 at Pt Temp ABG HCO3 ABG O2 Sat (Measured) ABG O2 Content ABG Base Excess Gael Test VBG pH POC VBG pCO2 POC VBG pO2 VBG HCO3 VBG O2 Sat ([place]alo) VBG Base Excess O2 Delivery Device Oxygen Flow Rate Vent Mode Vent Rate Mechanical Rate Pressure Support Vent Sodium 142 Potassium 4.3 Chloride 106 Carbon Dioxide 24 Anion Gap 11 BUN 22.9 H Creatinine 1.1 Est GFR (CKD-EPI)AfAm 74.65 Est GFR (CKD-EPI)NonAf 64.41 Random Glucose 117 H Lactic Acid Calcium 9.2 Phosphorus Magnesium Total Bilirubin 0.4 AST 36 ALT 28 Alkaline Phosphatase 88 Troponin I B-Natriuretic Peptide 374.3 Total Protein 7.3 Albumin 3.6 08/07/19 08/07/19 08/07/19 01:05 01:05 01:05 WBC RBC Hgb Hct MCV MCH MCHC RDW Plt Count MPV Absolute Neuts (auto) Total Counted Neutrophils % Neutrophils % (Manual) Band Neutrophils % Lymphocytes % Lymphocytes % (Manual) Monocytes % Monocytes % (Manual) Eosinophils % Eosinophils % (Manual) Basophils % Basophils % (Manual) Myelocytes % (Man) Promyelocytes % (Man) Blast Cells % (Manual) Nucleated RBC % Metamyelocytes Hypochromia Platelet Estimate Platelet Comment Polychromasia Poikilocytosis Anisocytosis Microcytosis Macrocytosis Ovalocytes Anticoagulation Therapy Puncture Site ABG pH ABG pCO2 at Pt Temp ABG pO2 at Pt Temp ABG HCO3 ABG O2 Sat (Measured) ABG O2 Content ABG Base Excess Gael Test VBG pH 7.41 POC VBG pCO2 39.4 POC VBG pO2 57.3 H VBG HCO3 24.3 VBG O2 Sat (Chalo) 87.2 H VBG Base Excess 0.2 O2 Delivery Device Oxygen Flow Rate Vent Mode Vent Rate Mechanical Rate Pressure Support Vent Sodium Potassium Chloride Carbon Dioxide Anion Gap BUN Creatinine Est GFR (CKD-EPI)AfAm Est GFR (CKD-EPI)NonAf Random Glucose Lactic Acid 2.8 H* Calcium Phosphorus Magnesium Total Bilirubin AST ALT Alkaline Phosphatase Troponin I < 0.02 B-Natriuretic Peptide Total Protein Albumin 08/07/19 08/07/19 08/07/19 04:11 06:00 06:22 WBC 8.3 RBC 4.20 Hgb 11.3 L Hct 34.9 L MCV 83.1 MCH 27.0 MCHC 32.5 RDW 18.6 H Plt Count 173 MPV 8.0 Absolute Neuts (auto) 7.8 Total Counted Neutrophils % 93.7 H Neutrophils % (Manual) 83.0 H Band Neutrophils % 10.0 Lymphocytes % 3.6 L D Lymphocytes % (Manual) 4.0 L D Monocytes % 2.6 L Monocytes % (Manual) 3 L Eosinophils % 0.0 D Eosinophils % (Manual) 0.0 D Basophils % 0.1 Basophils % (Manual) 0.0 Myelocytes % (Man) 0 Promyelocytes % (Man) 0 Blast Cells % (Manual) 0 Nucleated RBC % 0 Metamyelocytes 0 Hypochromia 0 Platelet Estimate Normal Platelet Comment Present Polychromasia 0 Poikilocytosis 1+ Anisocytosis 1+ Microcytosis 0 Macrocytosis 1+ Ovalocytes 1+ Anticoagulation Therapy No Result Required. Puncture Site Right radial ABG pH 7.44 ABG pCO2 at Pt Temp 35.0 ABG pO2 at Pt Temp 69.0 L ABG HCO3 23.2 ABG O2 Sat (Measured) 93.4 L ABG O2 Content 15.2 ABG Base Excess -0.1 Gael Test No Result Required. VBG pH POC VBG pCO2 POC VBG pO2 VBG HCO3 VBG O2 Sat (Chalo) VBG Base Excess O2 Delivery Device N/c Oxygen Flow Rate 4 Vent Mode No Result Required. Vent Rate No Result Required. Mechanical Rate No Result Required. Pressure Support Vent No Result Required. Sodium Potassium Chloride Carbon Dioxide Anion Gap BUN Creatinine Est GFR (CKD-EPI)AfAm Est GFR (CKD-EPI)NonAf Random Glucose Lactic Acid 2.2 H* Calcium Phosphorus Magnesium Total Bilirubin AST ALT Alkaline Phosphatase Troponin I B-Natriuretic Peptide Total Protein Albumin 08/07/19 06:22 WBC RBC Hgb Hct MCV MCH MCHC RDW Plt Count MPV Absolute Neuts (auto) Total Counted Neutrophils % Neutrophils % (Manual) Band Neutrophils % Lymphocytes % Lymphocytes % (Manual) Monocytes % Monocytes % (Manual) Eosinophils % Eosinophils % (Manual) Basophils % Basophils % (Manual) Myelocytes % (Man) Promyelocytes % (Man) Blast Cells % (Manual) Nucleated RBC % Metamyelocytes Hypochromia Platelet Estimate Platelet Comment Polychromasia Poikilocytosis Anisocytosis Microcytosis Macrocytosis Ovalocytes Anticoagulation Therapy Puncture Site ABG pH ABG pCO2 at Pt Temp ABG pO2 at Pt Temp ABG HCO3 ABG O2 Sat (Measured) ABG O2 Content ABG Base Excess Gael Test VBG pH POC VBG pCO2 POC VBG pO2 VBG HCO3 VBG O2 Sat (Chalo) VBG Base Excess O2 Delivery Device Oxygen Flow Rate Vent Mode Vent Rate Mechanical Rate Pressure Support Vent Sodium 141 Potassium 4.3 Chloride 108 H Carbon Dioxide 25 Anion Gap 8 BUN 21.9 H Creatinine 1.0 Est GFR (CKD-EPI)AfAm 83.77 Est GFR (CKD-EPI)NonAf 72.28 Random Glucose 112 H Lactic Acid Calcium 8.5 Phosphorus 2.7 Magnesium 2.1 Total Bilirubin 0.4 AST 20 ALT 22 Alkaline Phosphatase 75 Troponin I B-Natriuretic Peptide Total Protein 6.2 L Albumin 2.[address] chest results reviewed ASSESSMENT AND PLAN: 78 yom, [place] resident, with PMHx of 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 Urine PNA studies. Blood/sputum cx. Aspiration precautions. Dysphagia pureed diet, stop if coughing or choking IV hydration. Speech/swallow eval. Standing and prn nebs. trial with steroids if ongoing respiratory effort with antibiotics and nebs. Metoprolol/losartan as hemodynamics tolerate. DVTPPX heparin Dispo pending clinical improvement. discussed with patient and at bedside in detail, all questions answered.
[2019-08-07] MEDS ORDERED: ALBUTEROL SO4 0.042% IH SOL 1.25 MG/3 ML VIAL.NEB NEB PRN (16:40)
--- NOTE | 2019-08-07 17:08 | CONS ---
DATE OF CONSULTATION: DATE OF DICTATION: 08/07/2019 INFECTIOUS DISEASE CONSULTATION REQUESTING PHYSICIAN: Hospitalist Service. CONSULTING PHYSICIAN: Bonnie Mendoza M.D. HISTORY OF PRESENT ILLNESS: This is a 78-year-old man with past medical history of CVA 3 years ago with right sided weakness. He is nonambulatory and since that time has been residing in the [facility]. He has not been feeling as well as usual over the last several days. He has had cough but no hemoptysis. Yesterday the [place] [facility] called his and said he was not well. She came to see him. He was on a mask for oxygen and apparently had an episode of vomiting. His oxygen saturation was apparently 75% at the [place] [facility]. The called EMS who came, put the patient on a nonrebreather and transported him to the hospital. Patient is alert. He has no complaints, though he does have intermittent cough, nonproductive. PAST MEDICAL HISTORY: Notable for basal cell carcinoma. He is blind. Has a history of CVA, hypertension, colon cancer details of which are unknown, and hyperlipidemia. SURGICAL HISTORY: He has multiple abdominal surgical incisions. Family is unaware of what surgery he had, except she is aware he had an appendectomy. He has an incision on his anterior chest wall, at the junction of his neck and chest. Again, the family is unaware of what that incision was. SOCIAL HISTORY: There is no history of cigarette, alcohol, or substance use. 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 He is , has 2 adult children. FAMILY HISTORY: Not available. The is not able to recall. She also is not able to recall any details of his past surgical history. ALLERGIES: He has no known drug allergies. MEDICATION: Medications at the [facility] [facility] include Zoloft, Ultram, Miralax, multivitamins, metoprolol, Cozaar, ferrous sulfate, Pepcid, Colace, Plavix, vitamin D, B complex, and Lipitor. REVIEW OF SYSTEMS: He has no complaints. The reports he is not ambulatory, and he sits in a wheelchair during the daytime. PHYSICAL EXAMINATION: Vital Signs: His T-max is 100.9. His pulse is 72, blood pressure 125/63, respiratory rate 17. He is saturating 93%. HEENT: Normocephalic. Eyes are anicteric. Neck: Supple. Lungs: Diminished breath sounds at the bases. . Heart: Regular rate and rhythm. Abdomen: Soft, nontender. Extremities: Contracted and rigid his legs and his right arm. LABORATORY: Notable for a white count of 8.3, hemoglobin 11.3, platelets of 173. BUN and creatinine are 21.9 and 1. Lactic acid was 2.8 on admission. LFTs are normal. Blood cultures are pending. Chest x-ray and chest CTA reveals limited evaluation for PE with areas of acute consolidation left lower lobe, right lower lobe, and bilateral upper lobes. He has mild mediastinal adenopathy. IMPRESSION: In summary, this is a 78-year-old man admitted from the [place] [facility] with probable aspiration pneumonia, history of cerebrovascular accident. I would continue Zosyn and Zithromax. Follow up cultures, urinary antigen. Case was discussed at length with his at the bedside, and [facility] records were reviewed. BONNIE MENDOZA M.D. [id number]
[2019-08-07] MEDS ORDERED: PIPERACILLIN/TAZOBACTAM 3.375 GM VIAL IVPB ONE (17:33)
[2019-08-07] MEDS ORDERED: DEXTROSE 5%-WATER - 50 ML IVPB ONE (17:33)
[2019-08-07] MEDS: PIPERACILLIN/TAZOB 3.375 GM 3.375 GM in DEXTROSE 5%-WATER - 50 ML IVPB SCH (17:42)
[2019-08-07 17:48] LABS: URINE APPEARANCE CLEAR; URINE BILIRUBIN NEGATIVE (NEGATIVE); URINE COLOR YELLOW; URINE GLUCOSE (UA) NEGATIVE (NEGATIVE); URINE KETONE NEGATIVE (NEGATIVE)
[2019-08-07 17:49] LABS: URINE NITRITE POSITIVE (NEGATIVE); URINE PROTEIN 1+ (NEGATIVE); URINE UROBILINOGEN 0.2 mg/dL (0.2-1.0)
[2019-08-07 17:50] LABS: EPI CELLS 0.4 /HPF (0-5/HPF); URINE BACTERIA 30.1 /hpf (NEGATIVE); URINE LEUK ESTERASE 3+ (NEGATIVE); URINE RBC 157.7 /hpf (0-4); URINE WBC 65.8 /hpf (0-5)
[2019-08-07 18:57] VITALS: BMI 20.1
[2019-08-07] MEDS: ALBUTEROL SO4 2.5/IPRATROPIUM 0.5 INH SOL 3 ML VIAL.NEB. NEB SCH (20:09)
[2019-08-07] MEDS: ATORVASTATIN CA 10 MG TABLET (FP) PO SCH (21:12)
[2019-08-08] MEDS ORDERED: PIPERACILLIN/TAZOBACTAM 3.375 GM VIAL IVPB ONE ×3 (00:47→16:40)
[2019-08-08] MEDS ORDERED: DEXTROSE 5%-WATER - 50 ML IVPB ONE ×3 (00:47→16:40)
[2019-08-08] MEDS: PIPERACILLIN/TAZOB 3.375 GM 3.375 GM in DEXTROSE 5%-WATER - 50 ML IVPB SCH ×3 (01:02→17:09)
[2019-08-08 08:11] LABS: BASO % 0.1 % (0-2.0); EOS % 0.5 % (0-4.5); LYMPH % 4.4 % (8-40); MCH 27.3 pg (25.7-33.7); MCHC 33.4 g/dl (32.0-35.9); MEAN CELL VOLUME 81.6 fl (80-96); MEAN PLT VOLUME 8.2 fl (7.5-11.1); MONO % 4.9 % (3.8-10.2); NEUT % 90.1 % (42.8-82.8); PLATELET COUNT 171 K/MM3 (134-434); RBC 3.68 M/mm3 (4.00-5.60); RDW 19.3 % (11.9-15.9); WHITE BLOOD COUNT 8.4 K/mm3 (4.0-10.0)
[2019-08-08 08:36] LABS: ALBUMIN 2.7 g/dl (3.4-5.0); BILIRUBIN,TOTAL 0.8 mg/dL (0.2-1); BLOOD UREA NITROGEN 22.5 mg/dL (7-18); CALCIUM 8.6 mg/dL (8.5-10.1); CREATININE 1.1 mg/dL (0.55-1.3); MAGNESIUM 2.2 mg/dL (1.8-2.4); PHOSPHOROUS 1.9 mg/dL (2.5-4.9); POTASSIUM 3.5 mmol/L (3.5-5.1); TOT PROT 5.9 g/dl (6.4-8.2)
[2019-08-08] MEDS: ALBUTEROL SO4 2.5/IPRATROPIUM 0.5 INH SOL 3 ML VIAL.NEB. NEB SCH ×4 (08:45→20:39)
[2019-08-08] MEDS: CLOPIDOGREL BISULFATE 75 MG TABLET (FP) PO SCH (09:53)
[2019-08-08] MEDS: MULTIVITAMINS (DAILY MVI) TABLET (FP) PO SCH (09:53)
[2019-08-08] MEDS: POTASSIUM CHLORIDE TABS 10 MEQ TABLET.ER (FP) PO SCH (09:53)
[2019-08-08] MEDS: LOSARTAN POTASSIUM 50 MG TABLET (FP) PO SCH (09:53)
[2019-08-08] MEDS: CHOLECALCIFEROL (VIT D3) 1,000 UNIT (25 MCG) TABLET PO SCH (09:53)
[2019-08-08] MEDS: ENOXAPARIN NA (PORCINE) 40 MG/0.4 ML DISP.SYRIN SQ SCH (09:53)
[2019-08-08] MEDS: SERTRALINE HCL 50 MG TABLET (FP) PO SCH (09:53)
[2019-08-08] MEDS: SODIUM CHLORIDE 1,000 ML IV SCH ×2 (09:53→22:50)
[2019-08-08] MEDS: VITAMIN B COMPLEX W/C COMBO TABLET (FP) PO SCH (09:53)
[2019-08-08] MEDS: DOCUSATE SODIUM 100 MG CAPSULE (FP) PO SCH (09:53)
[2019-08-08] MEDS: FERROUS SO4 325 MG TABLET (FP) PO SCH (09:53)
[2019-08-08] MEDS: RANITIDINE HCL 150 MG TABLET (FP) PO SCH (09:53)
[2019-08-08] MEDS ORDERED: AZITHROMYCIN IVPB 500 MG/250 ML BAG IVPB SCH (10:22)
--- NOTE | 2019-08-08 10:36 | CONSULT ---
Admitting History and Physical - Primary Care Physician PCP: Yaa Monroy - Admission History of Present Illness: Per EMR- 78 year old male with a past medical history of basal cell carcinoma, legal blindness, stroke, hypertension, colon CA, HLD who presents from [facility] after being reported that he was more short of breath and with a fever, productive cough,desaturating into the 70s. This occurred after pt was vomiting. On 08/06, the day before admission, [facility] faxed me order for out pt MBS to r/o dysphagia/aspiration. Selected Entries 08/07/19 08/07/19 08/07/19 00:25 16:21 16:46 Breakfast Diet Tolerated Supper Temperature 100.9 F H 99.0 F 99.1 F 08/07/19 08/07/19 08/08/19 19:49 22:00 06:16 Breakfast Diet Tolerated Well Supper 50% Temperature 98.9 F 97.8 F 08/08/19 10:29 Breakfast 75% Diet Tolerated Well Supper Temperature Laboratory Tests 08/07/19 08/08/19 01:05 07:10 WBC 7.3 8.4 Dysphagia puree/nectar thick liquids ordered at [facility] on 08/07. No diet order info in paper chart from [facility]. This is my first consult with this pt. History Source: Medical Record Limitations to Obtaining History: Clinical Condition, Dementia - Past Medical History [employer]: Yes: TIA Cardiovascular: Yes: HTN Heme/Onc: Yes: Other (colon) - Past Surgical History Past Surgical History: Yes: Colectomy - Smoking History Smoking history: Never smoked Have you smoked in the past 12 months: No If you are a former smoker, when did you quit?: 50-60 years ago - Alcohol/Substance Use Hx Alcohol Use: No History of Substance Use: reports: None History - Admission Reason For Visit: PNEUMONIA - Diagnostics X-ray: Report Reviewed - General Mental Status: Awake and Alert, Able to Follow Commands, Confused (verbal but not oriented. Poor memory.) Attention: Mild Impairment Ability to Follow Directions: Good Head/Neck Control: Good - Hearing Hearing: Normal Speech Evaluation - Communication Primary Language: FRISIAN Communication: Yes: Within Normal Limits Oral Expression Ability: Yes: No Impairment - Speech Production Able to Make Needs Known: Yes: WNL Intelligibility: Yes: WNL - Speech Characteristics Voice Loudness: Normal Voice Pitch: Yes: Normal Voice Phonatory-based Quality: Yes: Normal Speech Pattern: Normal Speech Clarity: < 100% Nasal Resonance: Normal Articulation: Yes: Precise - Language/Auditory Comprehension Follows: Yes: 1 Stage Simple Commands Observation: Able to respond to yes/no queries: Yes, Yes/No Confusion: No, Comprehends Conversational Speech: Yes - Language/Verbal Expression Able to Communicate Wants and Needs: Yes: WNL Functional Communication Status: Yes: WNL - Swallow Evaluation/Bedside Assessment Current Nutritional Intake: Dysphagia Pureed, Kinsley Textured Liquids Oral Secretions: Yes: WFL Dentition: Yes: Adequate Facial Symmetry at Rest: Symmetrical Facial Symmetry on Retraction: Symmetrical Facial Movement: Controlled Against Resistance Opening: Normal Against Resistance Closing: Normal Pucker Lips: Normal Smile: Normal Lingual Movement: Normal, Symmetric Lingual Speed of Movement: Normal Lingual Movement Strgth Against Opposition: Normal Lingual Movement Characteristics: Normal Velopharyngeal Movement: Normal Laryngeal Movement: Able to Palpate Bolus Size: WFL Labial Seal: WFL Oral Prep Time: WFL A-P Transit: WFL Pocketing: None Timing of Swallow: WFL Coughing/Throat Clear: No Change in Voice: No Recommendations - Speech Evaluation, Impression/Plan Impression: Verbal, impaired memory, thinks he is at [facility]. Pt is able to see funmctionally, names objects, tells me no. of finger held, color of my shirt. ( -) cough response with sips of water.Brisk swallow. r/o Dysphagia- [facility] Recent vomiting. R/o esophageal dysphagia? Tolerating puree/nectar so far. - Disposition Discharge to: [facility] - Dysphagia Impressions/Plan Dysphagia Impressions: Ongoing Evaluation *Silent aspiration: cannot be R/O at bedside Recommendations: MBS w Esophagus - Recommendations Diet Consistency: Dysphagia Pureed Medication Administration: Crushed with applesauce Liquids: Kinsley Thick
[2019-08-08] MEDS: AZITHROMYCIN IVPB 500 MG in DEXTROSE 5%-WATER - 250 ML IVPB SCH (11:10)
--- NOTE | 2019-08-08 11:55 | PN ---
Teaching Attending Note Name of Resident: Arslan Hilario ATTENDING PHYSICIAN STATEMENT I saw and evaluated the patient. I reviewed the resident's note and discussed the case with the resident. I agree with the resident's findings and plan as documented with exceptions below. SUBJECTIVE: Patient seen and examined. Breathing improved, no complaints. OBJECTIVE: Vital Signs Period Temp Pulse Resp BP Sys/Herrmann Pulse Ox Last 24 Hr 97.8 F-99.1 F 68-78 20-22 113-150/60-77 90-93 Intake & Output 08/05/19 08/06/19 08/07/19 08/08/19 23:59 23:59 23:59 23:59 Intake Total 300 200 Balance 300 200 Weight 132 lb 9.6 oz General: sitting in bed, improved, no use of accessory muscles today, Neck: soft, supple, no JVD Chest; scattered bibasilar rales, improved air entry, no wheezing Abdomen:Soft, NT Extremities: no edema Home Medications Medication Instructions Recorded Atorvastatin Ca [Lipitor] 10 mg PO HS 08/07/19 B1/B2/Niacin/B12/Protease 1 each PO DAILY 08/07/19 [B-Complex with B-12 Tablet] Chlorpromazine HCl 25 mg PO DAILY 08/07/19 Cholecalciferol (Vitamin D3) 2,000 unit PO DAILY 08/07/19 [Vitamin D] Clopidogrel Bisulfate [Plavix -] 75 mg PO DAILY 08/07/19 Docusate Sodium [Colace] 100 mg PO DAILY 08/07/19 Famotidine [Pepcid] 40 mg PO DAILY 08/07/19 Ferrous Sulfate 325 mg PO DAILY 08/07/19 Losartan Potassium [Cozaar -] 50 mg PO DAILY 08/07/19 Metoprolol Succinate [Toprol Xl] 50 mg PO DAILY 08/07/19 Multivitamin [One-Daily 1 each PO DAILY 08/07/19 Multi-Vitamin] Polyethylene Glycol 3350 [Miralax 17 gm PO PRN 08/07/19 (For Daily Use) -] Potassium Chloride 10 meq PO DAILY 08/07/19 Sertraline HCl [Zoloft] 100 mg PO DAILY 08/07/19 Tramadol HCl [Ultram] 50 mg PO BID 08/07/19 Active Medications Albuterol Sulfate (Ventolin 0.042trength) -) 1 amp NEB Q4H PRN PRN Reason: SHORT OF BREATH/WHEEZING Albuterol/Ipratropium (Duoneb -) 1 amp NEB RQID [facility] Last Admin: 08/08/19 08:45 Dose: 1 amp Atorvastatin Calcium (Lipitor -) 10 mg PO HS [facility] Last Admin: 08/07/19 21:12 Dose: 10 mg Cholecalciferol (Vitamin D3 -) 2,000 unit PO DAILY [facility] Last Admin: 08/08/19 09:53 Dose: 2,000 unit Clopidogrel Bisulfate (Plavix -) 75 mg PO DAILY [facility] Last Admin: 08/08/19 09:53 Dose: 75 mg Docusate Sodium (Colace -) 100 mg PO DAILY [facility] Last Admin: 08/08/19 09:53 Dose: 100 mg Enoxaparin Sodium (Lovenox -) 40 mg SQ DAILY [facility] Last Admin: 08/08/19 09:53 Dose: 40 mg Ferrous Sulfate (Feosol -) 325 mg PO DAILY [facility] Last Admin: 08/08/19 09:53 Dose: 325 mg Sodium Chloride (Normal Saline -) 1,000 mls @ 75 mls/hr IV ASDIR [facility] Last Admin: 08/08/19 09:53 Dose: 75 mls/hr Piperacillin Sod/Tazobactam (Sod 3.375 gm/ Dextrose) 50 mls @ 100 mls/hr IVPB Q8H-IV PADMINI; Protocol Last Admin: 08/08/19 09:53 Dose: 100 mls/hr Azithromycin (Zithromax 500mg Ivpb (Pre-Docked)) 500 mg in 250 mls @ 250 mls/ hr IVPB DAILY [facility] Losartan Potassium (Cozaar -) 50 mg PO DAILY [facility] Last Admin: 08/08/19 09:53 Dose: 50 mg Metoprolol Succinate (Toprol Xl -) 50 mg PO DAILY [facility] Last Admin: 08/08/19 09:53 Dose: 50 mg Multivitamins (Total B With C -) 1 each PO DAILY [facility] Last Admin: 08/08/19 09:53 Dose: 1 each Multivitamins/Minerals/Vitamin C (Tab-A-Vit -) 1 tab PO DAILY [facility] Last Admin: 08/08/19 09:53 Dose: 1 tab Polyethylene Glycol (Miralax (For Daily Use) -) 17 gm PO DAILY PRN PRN Reason: CONSTIPATION Potassium Chloride (K-Dur -) 10 meq PO DAILY [facility] Last Admin: 08/08/19 09:53 Dose: 10 meq Ranitidine HCl (Zantac -) 150 mg PO DAILY [facility] Last Admin: 08/08/19 09:53 Dose: 150 mg Sertraline HCl (Zoloft -) 100 mg PO DAILY [facility] Last Admin: 08/08/19 09:53 Dose: 100 mg Tramadol HCl (Ultram -) 50 mg PO Q12H PRN PRN Reason: PAIN LEVEL 7 - 10 Laboratory Results - last 24 hr 08/07/19 08/07/19 08/08/19 06:22 16:50 07:10 WBC 8.4 RBC 3.68 L Hgb 10.0 L Hct 30.0 L MCV 81.6 MCH 27.3 MCHC 33.4 RDW 19.3 H Plt Count 171 MPV 8.2 Absolute Neuts (auto) 7.6 Neutrophils % 90.1 H Neutrophils % (Manual) 83.0 H Band Neutrophils % 10.0 Lymphocytes % 4.4 L D Lymphocytes % (Manual) 4.0 L D Monocytes % 4.9 D Monocytes % (Manual) 3 L Eosinophils % 0.5 D Eosinophils % (Manual) 0.0 D Basophils % 0.1 Basophils % (Manual) 0.0 Myelocytes % (Man) 0 Promyelocytes % (Man) 0 Blast Cells % (Manual) 0 Nucleated RBC % 0 Metamyelocytes 0 Hypochromia 0 Platelet Estimate Normal Platelet Comment Present Polychromasia 0 Poikilocytosis 1+ Anisocytosis 1+ Microcytosis 0 Macrocytosis 1+ Ovalocytes 1+ Sodium Potassium Chloride Carbon Dioxide Anion Gap BUN Creatinine Est GFR (CKD-EPI)AfAm Est GFR (CKD-EPI)NonAf Random Glucose Calcium Phosphorus Magnesium Total Bilirubin AST ALT Alkaline Phosphatase Total Protein Albumin Urine Color Yellow Urine Appearance Clear Urine pH 6.0 Ur Specific Jadwin 1.052 H Urine Protein 1+ H Urine Glucose (UA) Negative Urine Ketones Negative Urine Blood Large Urine Nitrite Positive H Urine Bilirubin Negative Urine Urobilinogen 0.2 Ur Leukocyte Esterase 3+ H Urine WBC (Auto) 65.8 Urine RBC (Auto) 157.7 Urine Casts (Auto) 19.20 U Pathogenic Cast Auto Negative U Epithel Cells (Auto) 0.4 Urine Bacteria (Auto) 30.1 08/08/19 07:10 WBC RBC Hgb Hct MCV MCH MCHC RDW Plt Count MPV Absolute Neuts (auto) Neutrophils % Neutrophils % (Manual) Band Neutrophils % Lymphocytes % Lymphocytes % (Manual) Monocytes % Monocytes % (Manual) Eosinophils % Eosinophils % (Manual) Basophils % Basophils % (Manual) Myelocytes % (Man) Promyelocytes % (Man) Blast Cells % (Manual) Nucleated RBC % Metamyelocytes Hypochromia Platelet Estimate Platelet Comment Polychromasia Poikilocytosis Anisocytosis Microcytosis Macrocytosis Ovalocytes Sodium 144 Potassium 3.5 Chloride 112 H Carbon Dioxide 23 Anion Gap 9 BUN 22.5 H Creatinine 1.1 Est GFR (CKD-EPI)AfAm 74.65 Est GFR (CKD-EPI)NonAf 64.41 Random Glucose 85 Calcium 8.6 Phosphorus 1.9 L Magnesium 2.2 Total Bilirubin 0.8 AST 31 ALT 22 Alkaline Phosphatase 61 Total Protein 5.9 L Albumin 2.7 L Urine Color Urine Appearance Urine pH Ur Specific Jadwin Urine Protein Urine Glucose (UA) Urine Ketones Urine Blood Urine Nitrite Urine Bilirubin Urine Urobilinogen Ur Leukocyte Esterase Urine WBC (Auto) Urine RBC (Auto) Urine Casts (Auto) U Pathogenic Cast Auto U Epithel Cells (Auto) Urine Bacteria (Auto) Microbiology 08/07/19 00:35 Blood - Peripheral Venous Blood Culture - Preliminary NO GROWTH OBTAINED AFTER 24 HOURS, INCUBATION TO CONTINUE FOR 4 DAYS. 08/07/19 00:35 Blood - Peripheral Venous Blood Culture - Preliminary NO GROWTH OBTAINED AFTER 24 HOURS, INCUBATION TO CONTINUE FOR 4 DAYS. 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 Aspiration precautions. Dysphagia pureed diet, stop if coughing or choking Speech/swallow input noted. MBS. Standing and prn nebs. Hold off on steroids given improvement. Replete K/Phos Metoprolol/losartan as hemodynamics tolerate. DVTPPX heparin Dispo back to SNF pending clinical improvement.
[2019-08-08] MEDS ORDERED: DEXTROSE IVPB ONE (12:30)
[2019-08-08] MEDS ORDERED: POTASSIUM PHOSPHATE IVPB ONE (12:30)
[2019-08-08] MEDS ORDERED: WATER IVPB ONE (12:30)
--- NOTE | 2019-08-08 13:42 | PN ---
Physical Exam: SUBJECTIVE: Patient seen and examined at bedside. No acute events. Feels well OBJECTIVE: Vital Signs Period Temp Pulse Resp BP Sys/Herrmann Pulse Ox Last 24 Hr 97.8 F-99.1 F 68-78 20-22 113-150/60-77 90-93 Gen: NAD, AAOx1 HEENT: NCAT, EOMI Neck: supple, no jvd Cardio: rrr, ns1s2, no mrg Pulm: bilateral ronchi Abd: soft, nontender, nondistended Laboratory Results - last 24 hr 08/07/19 08/07/19 08/08/19 06:22 16:50 07:10 WBC 8.4 RBC 3.68 L Hgb 10.0 L Hct 30.0 L MCV 81.6 MCH 27.3 MCHC 33.4 RDW 19.3 H Plt Count 171 MPV 8.2 Absolute Neuts (auto) 7.6 Neutrophils % 90.1 H Neutrophils % (Manual) 83.0 H Band Neutrophils % 10.0 Lymphocytes % 4.4 L D Lymphocytes % (Manual) 4.0 L D Monocytes % 4.9 D Monocytes % (Manual) 3 L Eosinophils % 0.5 D Eosinophils % (Manual) 0.0 D Basophils % 0.1 Basophils % (Manual) 0.0 Myelocytes % (Man) 0 Promyelocytes % (Man) 0 Blast Cells % (Manual) 0 Nucleated RBC % 0 Metamyelocytes 0 Hypochromia 0 Platelet Estimate Normal Platelet Comment Present Polychromasia 0 Poikilocytosis 1+ Anisocytosis 1+ Microcytosis 0 Macrocytosis 1+ Ovalocytes 1+ Sodium Potassium Chloride Carbon Dioxide Anion Gap BUN Creatinine Est GFR (CKD-EPI)AfAm Est GFR (CKD-EPI)NonAf Random Glucose Calcium Phosphorus Magnesium Total Bilirubin AST ALT Alkaline Phosphatase Total Protein Albumin Urine Color Yellow Urine Appearance Clear Urine pH 6.0 Ur Specific [place] 1.052 H Urine Protein 1+ H Urine Glucose (UA) Negative Urine Ketones Negative Urine Blood Large Urine Nitrite Positive H Urine Bilirubin Negative Urine Urobilinogen 0.2 Ur Leukocyte Esterase 3+ H Urine WBC (Auto) 65.8 Urine RBC (Auto) 157.7 Urine Casts (Auto) 19.20 U Pathogenic Cast Auto Negative U Epithel Cells (Auto) 0.4 Urine Bacteria (Auto) 30.1 08/08/19 07:10 WBC RBC Hgb Hct MCV MCH MCHC RDW Plt Count MPV Absolute Neuts (auto) Neutrophils % Neutrophils % (Manual) Band Neutrophils % Lymphocytes % Lymphocytes % (Manual) Monocytes % Monocytes % (Manual) Eosinophils % Eosinophils % (Manual) Basophils % Basophils % (Manual) Myelocytes % (Man) Promyelocytes % (Man) Blast Cells % (Manual) Nucleated RBC % Metamyelocytes Hypochromia Platelet Estimate Platelet Comment Polychromasia Poikilocytosis Anisocytosis Microcytosis Macrocytosis Ovalocytes Sodium 144 Potassium 3.5 Chloride 112 H Carbon Dioxide 23 Anion Gap 9 BUN 22.5 H Creatinine 1.1 Est GFR (CKD-EPI)AfAm 74.65 Est GFR (CKD-EPI)NonAf 64.41 Random Glucose 85 Calcium 8.6 Phosphorus 1.9 L Magnesium 2.2 Total Bilirubin 0.8 AST 31 ALT 22 Alkaline Phosphatase 61 Total Protein 5.9 L Albumin 2.7 L Urine Color Urine Appearance Urine pH Ur Specific [place] Urine Protein Urine Glucose (UA) Urine Ketones Urine Blood Urine Nitrite Urine Bilirubin Urine Urobilinogen Ur Leukocyte Esterase Urine WBC (Auto) Urine RBC (Auto) Urine Casts (Auto) U Pathogenic Cast Auto U Epithel Cells (Auto) Urine Bacteria (Auto) Active Medications Generic Name Dose Route Start Last Admin Trade Name Freq PRN Reason Stop Dose Admin Albuterol Sulfate 1 amp 08/07/19 16:40 Ventolin 0.042trength) - NEB Q4H PRN SHORT OF BREATH/WHEEZING Albuterol/Ipratropium 1 amp 08/07/19 20:00 08/08/19 12:50 Duoneb - NEB Not Given RQID [facility] Atorvastatin Calcium 10 mg 08/07/19 22:00 08/07/19 21:12 Lipitor - PO 10 mg HS PADMINI Administration Cholecalciferol 2,000 unit 08/07/19 10:00 08/08/19 09:53 Vitamin D3 - PO 2,000 unit DAILY [facility] Administration Clopidogrel Bisulfate 75 mg 08/07/19 10:00 08/08/19 09:53 Plavix - PO 75 mg DAILY PADMINI Administration Docusate Sodium 100 mg 08/07/19 10:00 08/08/19 09:53 Colace - PO 100 mg DAILY PADMINI Administration Enoxaparin Sodium 40 mg 08/07/19 10:00 08/08/19 09:53 Lovenox - SQ 40 mg DAILY PADMINI Administration Ferrous Sulfate 325 mg 08/07/19 10:00 08/08/19 09:53 Feosol - PO 325 mg DAILY PADMINI Administration Sodium Chloride 1,000 mls @ 75 mls/hr 08/07/19 04:30 08/08/19 09:53 Normal Saline - IV 75 mls/hr ASDIR PADMINI Administration Piperacillin Sod/Tazobactam 50 mls @ 100 mls/hr 08/07/19 18:00 08/08/19 09:53 Sod 3.375 gm/ Dextrose IVPB 100 mls/hr Q8H-IV PADMINI Administration Protocol Azithromycin 500 mg in 250 mls @ 250 mls/hr 08/08/19 10:22 Zithromax 500mg Ivpb (Pre-Docked) IVPB DAILY PADMINI Potassium Phosphate 25 mm/ 258.3333 mls @ 43.056 mls/hr 08/08/19 12:30 Dextrose IVPB 08/08/19 18:29 ONCE ONE Losartan Potassium 50 mg 08/07/19 10:00 08/08/19 09:53 Cozaar - PO 50 mg DAILY PADMINI Administration Metoprolol Succinate 50 mg 08/07/19 10:00 08/08/19 09:53 Toprol Xl - PO 50 mg DAILY PADMINI Administration Multivitamins 1 each 08/07/19 10:00 08/08/19 09:53 Total B With C - PO 1 each DAILY PADMINI Administration Multivitamins/Minerals/Vitamin C 1 tab 08/07/19 10:00 08/08/19 09:53 Tab-A-Vit - PO 1 tab DAILY PADMINI Administration Polyethylene Glycol 17 gm 08/07/19 04:45 Miralax (For Daily Use) - PO DAILY PRN CONSTIPATION Potassium Chloride 10 meq 08/07/19 10:00 08/08/19 09:53 K-Dur - PO 10 meq DAILY PADMINI Administration Ranitidine HCl 150 mg 08/07/19 10:00 08/08/19 09:53 Zantac - PO 150 mg DAILY PADMINI Administration Sertraline HCl 100 mg 08/07/19 10:00 08/08/19 09:53 Zoloft - PO 100 mg DAILY PAD[facility]I Administration Tramadol HCl 50 mg 08/07/19 16:23 Ultram - PO Q12H PRN PAIN LEVEL 7 - 10 ASSESSMENT/PLAN: Pt is a 78 year old male with a past medical history of basal cell carcinoma, blindness, stroke, hypertension, colon CA, HLD who is admitted for shortness of breath likely secondary to pneumonia. Shortness of Breath - likely secondary to pneumonia as seen in CXR/CT, febrile state, left shift on CBC, lactic acidosis - ceftriaxone and azithromycin - BCx, sputum cultures, Urine Ag pending, neg so far - O2 as needed, titrate down as tolerated - ABG ordered, if poor O2 on ABG, may need Venti-mask for proper oxygenation - CTA neg for PE - lactic acidosis, continue fluids - echocardiogram grossly normal -PT -MBS done, pending recs from speech and swallow Hypertension - Metoprolol Succinate, Losartan Hyperlipidemia - Atorvastatin Visit type - Emergency Visit Emergency Visit: No - New Patient This patient is new to me today: No - Critical Care Critical Care patient: No ATTENDING PHYSICIAN STATEMENT I saw and evaluated the patient. I reviewed the resident's note and discussed the case with the resident. I agree with the resident's findings and plan as documented. SUBJECTIVE: OBJECTIVE: ASSESSMENT AND PLAN:
--- NOTE | 2019-08-08 16:10 | PN ---
Progress Note (short form) - Note Progress Note: alert NAD cough much more comfortable Vital Signs Period Temp Pulse Resp BP Sys/Herrmann Pulse Ox Last 24 Hr 97.8 F-99.1 F 68-78 20-22 113-150/60-77 90-93 cor-rrr lungs clear abd soft,nt ext no edema CBC, BMP 08/08/19 07:10 08/08/19 07:10 Microbiology 08/07/19 16:30 Urine - Urine Clean Catch Legionella Antigen - Final-negative 08/07/19 16:30 Urine - Urine Clean Catch Streptococcus pneumoniae Antigen ( M - Final 08/07/19 00:35 Blood - Peripheral Venous Blood Culture - Preliminary NO GROWTH OBTAINED AFTER 24 HOURS, INCUBATION TO CONTINUE FOR 4 DAYS. 08/07/19 00:35 Blood - Peripheral Venous Blood Culture - Preliminary NO GROWTH OBTAINED AFTER 24 HOURS, INCUBATION TO CONTINUE FOR 4 DAYS. MBS with silent aspiration cxray/chest ct with bilateral patchy infiltrates a/p probable aspiration pneumonia history of cva continue zosyn day #2 can d/c zithromax Problem List - Problems (1) Pneumonia Code(s): J18.9 - PNEUMONIA, UNSPECIFIED ORGANISM (2) History of CVA (cerebrovascular accident) Code(s): Z86.73 - PRSNL HX OF TIA (TIA), AND CEREB INFRC W/O RESID DEFICITS
[2019-08-08] MEDS: ATORVASTATIN CA 10 MG TABLET (FP) PO SCH (22:13)
[2019-08-09] MEDS ORDERED: DEXTROSE 5%-WATER - 50 ML IVPB ONE ×3 (01:46→17:05)
[2019-08-09] MEDS ORDERED: PIPERACILLIN/TAZOBACTAM 3.375 GM VIAL IVPB ONE ×3 (01:46→17:05)
[2019-08-09] MEDS: PIPERACILLIN/TAZOB 3.375 GM 3.375 GM in DEXTROSE 5%-WATER - 50 ML IVPB SCH ×3 (01:56→17:21)
[2019-08-09] MEDS: ALBUTEROL SO4 2.5/IPRATROPIUM 0.5 INH SOL 3 ML VIAL.NEB. NEB SCH ×3 (08:24→20:15)
[2019-08-09] MEDS ORDERED: ALBUTEROL SO4 2.5/IPRATROPIUM 0.5 INH SOL 3 ML VIAL.NEB. NEB ONE (08:28)
[2019-08-09] MEDS ORDERED: ALBUTEROL SO4 2.5/IPRATROPIUM 0.5 INH SOL 3 ML VIAL.NEB. NEB PRN ×2 (08:28→14:11)
[2019-08-09] MEDS ORDERED: SODIUM CHLORIDE 1,000 ML IV STA (08:30)
[2019-08-09] MEDS ORDERED: SODIUM CHLORIDE 1,000 ML IV SCH ×2 (08:45→14:11)
[2019-08-09] MEDS: CHOLECALCIFEROL (VIT D3) 1,000 UNIT (25 MCG) TABLET PO SCH (09:09)
[2019-08-09] MEDS: DOCUSATE SODIUM 100 MG CAPSULE (FP) PO SCH (09:09)
[2019-08-09] MEDS: FERROUS SO4 325 MG TABLET (FP) PO SCH (09:10)
[2019-08-09] MEDS: RANITIDINE HCL 150 MG TABLET (FP) PO SCH (09:10)
[2019-08-09] MEDS: LOSARTAN POTASSIUM 50 MG TABLET (FP) PO SCH (09:10)
[2019-08-09] MEDS: CLOPIDOGREL BISULFATE 75 MG TABLET (FP) PO SCH (09:10)
[2019-08-09] MEDS: MULTIVITAMINS (DAILY MVI) TABLET (FP) PO SCH (09:10)
[2019-08-09] MEDS: POTASSIUM CHLORIDE TABS 10 MEQ TABLET.ER (FP) PO SCH (09:10)
[2019-08-09] MEDS: ENOXAPARIN NA (PORCINE) 40 MG/0.4 ML DISP.SYRIN SQ SCH (09:10)
[2019-08-09] MEDS: VITAMIN B COMPLEX W/C COMBO TABLET (FP) PO SCH (09:10)
[2019-08-09] MEDS: SERTRALINE HCL 50 MG TABLET (FP) PO SCH (09:10)
[2019-08-09 09:13] LABS: ARTERIAL BLD GAS O2 SATURATION 85.2 % (95-98); ARTERIAL BLOOD GAS BASE EXCESS -2.2 meq/l (-2-2); ARTERIAL BLOOD GAS PCO2 23.2 mmHg (35-45); ARTERIAL BLOOD GAS pH 7.53 (7.35-7.45)
[2019-08-09 09:26] LABS: ALLENS TEST POSITIVE
[2019-08-09 09:31] LABS: ARTERIAL BLOOD GAS PO2 < 49 mmHg (80-100)
[2019-08-09] MEDS ORDERED: methylPREDNISolone NA SUCC 125 MG/2 ML VIAL IVPUSH ONE (09:37)
[2019-08-09] MEDS ORDERED: FUROSEMIDE 40 MG/4 ML INJECTABLE VIAL IVPUSH ONE (09:37)
[2019-08-09 09:52] LABS: BASO % 0.1 % (0-2.0); HEMATOCRIT 29.7 % (35.4-49); LYMPH % 2.6 % (8-40); MCH 27.6 pg (25.7-33.7); MCHC 33.6 g/dl (32.0-35.9); MEAN CELL VOLUME 82.2 fl (80-96); MEAN PLT VOLUME 8.1 fl (7.5-11.1); MONO % 4.8 % (3.8-10.2); NEUT % 92.5 % (42.8-82.8); PLATELET COUNT 169 K/MM3 (134-434); RBC 3.61 M/mm3 (4.00-5.60); WHITE BLOOD COUNT 10.3 K/mm3 (4.0-10.0)
[2019-08-09 10:21] LABS: ALBUMIN 2.7 g/dl (3.4-5.0); BILIRUBIN,TOTAL 0.7 mg/dL (0.2-1); BLOOD UREA NITROGEN 18.7 mg/dL (7-18); CALCIUM 8.4 mg/dL (8.5-10.1); CREATININE 1.1 mg/dL (0.55-1.3); POTASSIUM 3.1 mmol/L (3.5-5.1)
[2019-08-09 10:53] LABS: ARTERIAL BLD GAS O2 SATURATION 99.9 % (95-98); ARTERIAL BLOOD GAS BASE EXCESS -1.8 meq/l (-2-2); ARTERIAL BLOOD GAS PCO2 26.6 mmHg (35-45); ARTERIAL BLOOD GAS PO2 283 mmHg (80-100); ARTERIAL BLOOD GAS pH 7.49 (7.35-7.45)
[2019-08-09 10:55] LABS: ALLENS TEST POSITIVE
--- NOTE | 2019-08-09 11:24 | CONSULT ---
Consultation: REQUESTING PROVIDER: CONSULT REQUEST: We have been asked to medically evaluate this patient for ICU care. HISTORY OF PRESENT ILLNESS: Patient is a 78M with history of history of basal cell carcinoma, blindness, stroke, hypertension, colon CA, HLD who presented from a residential on with a complaint of shortness of breath. longterm staff reported to the ED that the patient had vomited then became hypoxic. In the ED, workup showed a bilateral pneumonia on CXR and CTA. Labs showed a bandemia. He was then treated with zosyn and had been improving on the floor until today, when he was noted to be diaphoretic and tachypneic with an ABG showing an O2 of less than 49 mm Hg. He was started on bipap and transferred to the ICU. Noted to be febrile upon arrival to the ICU. REVIEW OF SYSTEMS: Unable to obtain 2/2 baseline dementia and clinical condition. PHYSICAL EXAMINATION Vital Signs - 24 hr 08/08/19 08/08/19 08/08/19 15:04 18:00 21:00 Temperature 98.9 F 99 F Pulse Rate 76 90 Respiratory 20 18 16 Rate Blood Pressure 135/70 159/96 O2 Sat by Pulse 91 L Oximetry (%) 08/08/19 08/09/19 08/09/19 22:00 06:15 08:00 Temperature 98.9 F 98.1 F Pulse Rate 87 85 Respiratory 16 20 Rate Blood Pressure 156/88 154/91 O2 Sat by Pulse 91 L Oximetry (%) 08/09/19 08/09/19 08/09/19 09:05 10:00 10:28 Temperature 98.0 F Pulse Rate 85 Respiratory 26 H Rate Blood Pressure 154/99 147/98 O2 Sat by Pulse 99 Oximetry (%) GENERAL: Awake, alert, oriented to self/location, not year HEAD: Normal with no signs of trauma. EYES: Pupils equal, round and reactive to light, extraocular movements intact NECK: Normal range of motion, supple without lymphadenopathy, JVD, or masses. LUNGS: Breath sounds equal, coarse breath sounds bilaterally HEART: Regular rate and rhythm, normal S1 and S2 without murmur, rub or gallop. ABDOMEN: Soft, nontender, not distended, normoactive bowel sounds, no guarding, no rebound, no masses. No hepatomegaly or splenomegaly. MUSCULOSKELETAL: Normal range of motion at all joints. No bony deformities or tenderness. No CVA tenderness. UPPER EXTREMITIES: 2+ pulses, warm, well-perfused. No peripheral edema LOWER EXTREMITIES: 2+ pulses, warm, well-perfused. No calf tenderness. No peripheral edema. NEUROLOGICAL: Cranial nerves II-XII intact. Normal speech. Moving all extremities SKIN: Warm, dry, normal turgor, no rashes or lesions noted. Laboratory Results - last 24 hr 08/09/19 08/09/19 08/09/19 08:45 09:24 09:24 WBC 10.3 H RBC 3.61 L Hgb 10.0 L Hct 29.7 L MCV 82.2 MCH 27.6 MCHC 33.6 RDW 19.0 H Plt Count 169 MPV 8.1 Absolute Neuts (auto) 9.6 H Neutrophils % 92.5 H Lymphocytes % 2.6 L D Monocytes % 4.8 Eosinophils % 0.0 D Basophils % 0.1 Nucleated RBC % 0 Anticoagulation Therapy No Result Required. Puncture Site Right radial ABG pH 7.53 H ABG pCO2 at Pt Temp 23.2 L ABG pO2 at Pt Temp < 49 L* ABG HCO3 19.2 L ABG O2 Sat (Measured) 85.2 L ABG O2 Content No Result Required. ABG Base Excess -2.2 L Gael Test Positive O2 Delivery Device No Result Required. Oxygen Flow Rate 4l Vent Mode No Result Required. Vent Rate No Result Required. Mechanical Rate No Result Required. Pressure Support Vent No Result Required. Sodium 147 H Potassium 3.1 L Chloride 116 H Carbon Dioxide 21 Anion Gap 10 BUN 18.7 H Creatinine 1.1 Est GFR (CKD-EPI)AfAm 74.65 Est GFR (CKD-EPI)NonAf 64.41 Random Glucose 116 H Lactic Acid Calcium 8.4 L Total Bilirubin 0.7 AST 37 ALT 28 Alkaline Phosphatase 67 Total Protein 6.0 L Albumin 2.7 L 08/09/19 08/09/19 09:24 10:35 WBC RBC Hgb Hct MCV MCH MCHC RDW Plt Count MPV Absolute Neuts (auto) Neutrophils % Lymphocytes % Monocytes % Eosinophils % Basophils % Nucleated RBC % Anticoagulation Therapy No Result Required. Puncture Site Right radial ABG pH 7.49 H ABG pCO2 at Pt Temp 26.6 L ABG pO2 at Pt Temp 283 H ABG HCO3 20.2 L ABG O2 Sat (Measured) 99.9 H ABG O2 Content 15.3 ABG Base Excess -1.8 Gael Test Positive O2 Delivery Device No Result Required. Oxygen Flow Rate 100 Vent Mode S/t Vent Rate 12 Mechanical Rate Bipap Pressure Support Vent No Result Required. Sodium Potassium Chloride Carbon Dioxide Anion Gap BUN Creatinine Est GFR (CKD-EPI)AfAm Est GFR (CKD-EPI)NonAf Random Glucose Lactic Acid 2.3 H* Calcium Total Bilirubin AST ALT Alkaline Phosphatase Total Protein Albumin Active Medications Generic Name Dose Route Start Last Admin Trade Name Freq PRN Reason Stop Dose Admin Albuterol/Ipratropium 1 amp 08/09/19 08:28 Duoneb - NEB Q4H PRN SHORTNESS OF BREATH Albuterol/Ipratropium 1 amp 08/09/19 12:00 Duoneb - NEB RQ4H PADMINI Atorvastatin Calcium 10 mg 08/07/19 22:00 08/08/19 22:13 Lipitor - PO 10 mg HS PADMINI Administration Chlorhexidine Gluconate 1 applic 08/09/19 22:00 Hibiclens For Decolonization - TP HS PADMINI Cholecalciferol 2,000 unit 08/07/19 10:00 08/09/19 09:09 Vitamin D3 - PO 2,000 unit DAILY PADMINI Administration Clopidogrel Bisulfate 75 mg 08/07/19 10:00 08/09/19 09:10 Plavix - PO 75 mg DAILY PADMINI Administration Docusate Sodium 100 mg 08/07/19 10:00 08/09/19 09:09 Colace - PO 100 mg DAILY PADMINI Administration Enoxaparin Sodium 40 mg 08/07/19 10:00 08/09/19 09:10 Lovenox - SQ 40 mg DAILY PADMINI Administration Ferrous Sulfate 325 mg 08/07/19 10:00 08/09/19 09:10 Feosol - PO 325 mg DAILY PADMINI Administration Piperacillin Sod/Tazobactam 50 mls @ 100 mls/hr 08/07/19 18:00 08/09/19 09:10 Sod 3.375 gm/ Dextrose IVPB 100 mls/hr Q8H-IV PADMINI Administration Protocol Sodium Chloride 1,000 mls @ 75 mls/hr 08/09/19 08:45 Normal Saline - IV ASDIR PADMINI Losartan Potassium 50 mg 08/07/19 10:00 08/09/19 09:10 Cozaar - PO 50 mg DAILY PADMINI Administration Metoprolol Succinate 50 mg 08/07/19 10:00 08/09/19 09:10 Toprol Xl - PO 50 mg DAILY PAMDINI Administration Multivitamins 1 each 08/07/19 10:00 08/09/19 09:10 Total B With C - PO 1 each DAILY PADMINI Administration Multivitamins/Minerals/Vitamin C 1 tab 08/07/19 10:00 08/09/19 09:10 Tab-A-Vit - PO 1 tab DAILY PADMINI Administration Mupirocin 1 applic 08/09/19 10:00 Bactroban Ointment (For Decolonization) - NS 08/14/19 09:59 BID PADMINI Polyethylene Glycol 17 gm 08/07/19 04:45 Miralax (For Daily Use) - PO DAILY PRN CONSTIPATION Potassium Chloride 10 meq 08/07/19 10:00 08/09/19 09:10 K-Dur - PO 10 meq DAILY PADMINI Administration Ranitidine HCl 150 mg 08/07/19 10:00 08/09/19 09:10 Zantac - PO 150 mg DAILY PADMINI Administration Sertraline HCl 100 mg 08/07/19 10:00 08/09/19 09:10 Zoloft - PO 100 mg DAILY PADMINI Administration Tramadol HCl 50 mg 08/07/19 16:23 Ultram - PO Q12H PRN PAIN LEVEL 7 - 10 ASSESSMENT/PLAN: Patient is a 78M with history of basal cell carcinoma, blindness, stroke, hypertension, colon CA, HLD here today with aspiration pneumonia, now causing ARDS. #Respiratory ARDS 2/2 aspiration pneumonia - PaO2/FiO2 < 100 initially, now 283 after bipap. - CXR shows bilateral patchy infiltrates without signs of fluid overload - Maintaining airway - Stable now on Bipap, ABGs improving - Goal spO2>90, titrate down FiO2 #ID - ID on board, on zosyn for presumed aspiration pneumonia - Febrile, sending new cultures - Bandemia on prior CBCs - Lactate 2.3 this morning - Tylenol PRN for fever #CV - BPs stable. Maintain maps > 65 - Home meds for CAD and BP history #FEN/GI - K 3.1, will replete - Replete other electrolytes as necessary - NPO for now given aspiration risk and status on bipap - 75 cc/hr NS Visit type - Emergency Visit Emergency Visit: Yes ED Registration Date: 08/07/19 Care time: The patient presented to the Emergency Department on the above date and was hospitalized for further evaluation of their emergent condition. - New Patient This patient is new to me today: Yes Date on this admission: 08/09/19 - Critical Care Critical Care patient: Yes Total Critical Care Time (in minutes): 40 Critical Care Statement: The care of this patient involved high complexity decision making to prevent further life threatening deterioration of the patient 's condition and/or to evaluate & treat vital organ system(s) failure or risk of failure. ATTENDING PHYSICIAN STATEMENT I saw and evaluated the patient. I reviewed the resident's note and discussed the case with the resident. I agree with the resident's findings and plan as documented. SUBJECTIVE: OBJECTIVE: ASSESSMENT AND PLAN:
[2019-08-09 11:30] LABS: PHOSPHOROUS 2.6 mg/dL (2.5-4.9)
[2019-08-09] MEDS ORDERED: ACETAMINOPHEN 1000 MG/100 ML VIAL (NON FORMULARY) IVPB ONE (11:39)
[2019-08-09] MEDS ORDERED: POTASSIUM CHLORIDE 20 MEQ PREMIX IVPB 100 ML IVPB ONE (11:40)
[2019-08-09] MEDS ORDERED: ALBUTEROL SO4 2.5/IPRATROPIUM 0.5 INH SOL 3 ML VIAL.NEB. NEB SCH (12:00)
[2019-08-09 12:56] LABS: EPI CELLS 0.2 /HPF (0-5/HPF); HYALINE CASTS 1 /lpf (0-8); URINE APPEARANCE CLEAR; URINE BACTERIA 1.5 /hpf (NEGATIVE); URINE BILIRUBIN NEGATIVE (NEGATIVE); URINE COLOR YELLOW; URINE GLUCOSE (UA) NEGATIVE (NEGATIVE); URINE KETONE NEGATIVE (NEGATIVE); URINE LEUK ESTERASE NEGATIVE (NEGATIVE); URINE NITRITE NEGATIVE (NEGATIVE); URINE PROTEIN NEGATIVE (NEGATIVE); URINE RBC 0 /hpf (0-4); URINE UROBILINOGEN 0.2 mg/dL (0.2-1.0); URINE WBC 0 /hpf (0-5)
--- NOTE | 2019-08-09 13:50 | PN ---
Progress Note (short form) - Note Progress Note: tachympea and hypoxia this am transferred to ICU now on bipap Vital Signs Period Temp Pulse Resp BP Sys/Herrmann Pulse Ox Last 24 Hr 98.0 F-101.3 F 76-90 16-36 135-165/70-102 91-100 cor-rrr lungs decreased bs at bases abd soft,nt ext no edema CBC, BMP 08/09/19 09:24 08/09/19 09:24 Microbiology 08/07/19 01:05 Urine - Urine Clean Catch Urine Culture - Final NO GROWTH OBTAINED 08/07/19 00:35 Blood - Peripheral Venous Blood Culture - Preliminary NO GROWTH OBTAINED AFTER 48 HOURS, INCUBATION TO CONTINUE FOR 3 DAYS. 08/07/19 00:35 Blood - Peripheral Venous Blood Culture - Preliminary NO GROWTH OBTAINED AFTER 48 HOURS, INCUBATION TO CONTINUE FOR 3 DAYS. 08/07/19 16:30 Urine - Urine Clean Catch Legionella Antigen - Final 08/07/19 16:30 Urine - Urine Clean Catch Streptococcus pneumoniae Antigen ( M - Final MBS with silent aspiration cxray/chest ct with bilateral patchy infiltrates cxray bilateral infiltrates Current Medications Albuterol/Ipratropium (Duoneb -) 1 amp NEB Q4H PRN PRN Reason: SHORTNESS OF BREATH Albuterol/Ipratropium (Duoneb -) 1 amp NEB RQ4H [facility] Last Admin: 08/09/19 12:19 Dose: 1 amp Atorvastatin Calcium (Lipitor -) 10 mg PO HS [facility] Last Admin: 08/08/19 22:13 Dose: 10 mg Chlorhexidine Gluconate (Hibiclens For Decolonization -) 1 applic TP [facility] Cholecalciferol (Vitamin D3 -) 2,000 unit PO DAILY [facility] Last Admin: 08/09/19 09:09 Dose: 2,000 unit Clopidogrel Bisulfate (Plavix -) 75 mg PO DAILY [facility] Last Admin: 08/09/19 09:10 Dose: 75 mg Docusate Sodium (Colace -) 100 mg PO DAILY [facility] Last Admin: 08/09/19 09:09 Dose: 100 mg Enoxaparin Sodium (Lovenox -) 40 mg SQ DAILY [facility] Last Admin: 08/09/19 09:10 Dose: 40 mg Ferrous Sulfate (Feosol -) 325 mg PO DAILY [facility] Last Admin: 08/09/19 09:10 Dose: 325 mg Piperacillin Sod/Tazobactam (Sod 3.375 gm/ Dextrose) 50 mls @ 100 mls/hr IVPB Q8H-IV PADMINI; Protocol Last Admin: 08/09/19 09:10 Dose: 100 mls/hr Sodium Chloride (Normal Saline -) 1,000 mls @ 75 mls/hr IV ASDIR [facility] Last Admin: 08/09/19 12:00 Dose: 75 mls/hr Losartan Potassium (Cozaar -) 50 mg PO DAILY [facility] Last Admin: 08/09/19 09:10 Dose: 50 mg Metoprolol Succinate (Toprol Xl -) 50 mg PO DAILY [facility] Last Admin: 08/09/19 09:10 Dose: 50 mg Multivitamins (Total B With C -) 1 each PO DAILY [facility] Last Admin: 08/09/19 09:10 Dose: 1 each Multivitamins/Minerals/Vitamin C (Tab-A-Vit -) 1 tab PO DAILY [facility] Last Admin: 08/09/19 09:10 Dose: 1 tab Mupirocin (Bactroban Ointment (For Decolonization) -) 1 applic NS BID [facility] Stop: 08/14/19 09:59 Polyethylene Glycol (Miralax (For Daily Use) -) 17 gm PO DAILY PRN PRN Reason: CONSTIPATION Potassium Chloride (K-Dur -) 10 meq PO DAILY [facility] Last Admin: 08/09/19 09:10 Dose: 10 meq Ranitidine HCl (Zantac -) 150 mg PO DAILY [facility] Last Admin: 08/09/19 09:10 Dose: 150 mg Sertraline HCl (Zoloft -) 100 mg PO DAILY [facility] Last Admin: 08/09/19 09:10 Dose: 100 mg Tramadol HCl (Ultram -) 50 mg PO Q12H PRN PRN Reason: PAIN LEVEL 7 - 10 a/p ?recurrent aspiration aspiration pneumonia ?chf ?early ARDS history of cva continue zosyn day #3 Problem List - Problems (1) Pneumonia Code(s): J18.9 - PNEUMONIA, UNSPECIFIED ORGANISM (2) History of CVA (cerebrovascular accident) Code(s): Z86.73 - PRSNL HX OF TIA (TIA), AND CEREB INFRC W/O RESID DEFICITS
[2019-08-09 14:01] LABS: ANISOCYTOSIS 3+; OVALOCYTE 1+; PLATELET ESTIMATE DECREASED
[2019-08-09] MEDS ORDERED: PT OWN MED DRAWER 7, Y5N ONE (14:04)
--- NOTE | 2019-08-09 14:04 | PN ---
Progress Note, BILL COLLECTOR - Note Progress Note: MBS with silent aspiration on thin and nectar thick liquid. Reviewed with staff. Pt's diet was downgraded after MBS to honey thick liquid for dinner. Pt became Tachpneic and desaturated, transferred to ICU, now on BIPAP. cxray/chest ct with bilateral patchy infiltrates cxray bilateral infiltrates Likely aspiration. Aspiration is SILENT in this pt, overtly appears to tolerate liquids but spillage into the airway with thin and nectar thick liquid spilled through the airway with no responsive cough during MBS. Mild aspiration during study-well controlled. SUGGEST-NPO until improved pulmonary status. REC: trial of Dys puree and single sips of HONEY THICK liquid on a tsp once stable and alert and pulm status improves May benefit from a PEG for hydration if aspiration persists. Pt is a full code. What are pt's end of life wishes?
[2019-08-09] MEDS ORDERED: POLYETHYLENE GLYCOL 3350 119 GM BTL PO PRN (14:11)
[2019-08-09] MEDS ORDERED: traMADol HCL 50 MG TABLET PO PRN (14:11)
--- NOTE | 2019-08-09 15:51 | PN ---
Teaching Attending Note Name of Resident: Brian Treviño ATTENDING PHYSICIAN STATEMENT I saw and evaluated the patient. I reviewed the resident's note and discussed the case with the resident. I agree with the resident's findings and plan as documented. SUBJECTIVE: Patient seen and examined in the ICU. Lethargic but arousable on NIPPV. at the bedside. Reports worsening mental status as an outpatient over the past few months. No advanced directives previously discussed. For now all interventions. Has a son and daughter that the would like to have involved with decision making. CXR: ARDS pattern. PHYSICAL EXAMINATION Vital Signs - 24 hr 08/08/19 08/08/19 08/08/19 15:04 18:00 21:00 Temperature 98.9 F 99 F Pulse Rate 76 90 Respiratory 20 18 16 Rate Blood Pressure 135/70 159/96 O2 Sat by Pulse 91 L Oximetry (%) 08/08/19 08/09/19 08/09/19 22:00 06:15 08:00 Temperature 98.9 F 98.1 F Pulse Rate 87 85 Respiratory 16 20 Rate Blood Pressure 156/88 154/91 O2 Sat by Pulse 91 L Oximetry (%) 08/09/19 08/09/19 08/09/19 09:05 10:00 10:28 Temperature 98.0 F Pulse Rate 85 Respiratory 26 H Rate Blood Pressure 154/99 147/98 O2 Sat by Pulse 99 Oximetry (%) GENERAL: Lethargic on NIPPV HEAD: Normal with no signs of trauma. EYES: Pupils equal, round and reactive to light NECK: Normal range of motion, supple without lymphadenopathy, JVD, or masses. LUNGS: NIPPV support, Bilateral coarse breath sounds HEART: Tachycardia ABDOMEN: Soft, nontender, not distended, normoactive bowel sounds, no guarding, no rebound, no masses. No hepatomegaly or splenomegaly. MUSCULOSKELETAL: Normal range of motion at all joints. No bony deformities or tenderness. No CVA tenderness. UPPER EXTREMITIES: warm, No peripheral edema LOWER EXTREMITIES: warm, No calf tenderness. No peripheral edema. NEUROLOGICAL: Lethargic, non-focal. Moving all extremities SKIN: Warm, dry, normal turgor, no rashes or lesions noted. Laboratory Results - last 24 hr 08/09/19 08/09/19 08/09/19 08:45 09:24 09:24 WBC 10.3 H RBC 3.61 L Hgb 10.0 L Hct 29.7 L MCV 82.2 MCH 27.6 MCHC 33.6 RDW 19.0 H Plt Count 169 MPV 8.1 Absolute Neuts (auto) 9.6 H Neutrophils % 92.5 H Lymphocytes % 2.6 L D Monocytes % 4.8 Eosinophils % 0.0 D Basophils % 0.1 Nucleated RBC % 0 Anticoagulation Therapy No Result Required. Puncture Site Right radial ABG pH 7.53 H ABG pCO2 at Pt Temp 23.2 L ABG pO2 at Pt Temp < 49 L* ABG HCO3 19.2 L ABG O2 Sat (Measured) 85.2 L ABG O2 Content No Result Required. ABG Base Excess -2.2 L Gael Test Positive O2 Delivery Device No Result Required. Oxygen Flow Rate 4l Vent Mode No Result Required. Vent Rate No Result Required. Mechanical Rate No Result Required. Pressure Support Vent No Result Required. Sodium 147 H Potassium 3.1 L Chloride 116 H Carbon Dioxide 21 Anion Gap 10 BUN 18.7 H Creatinine 1.1 Est GFR (CKD-EPI)AfAm 74.65 Est GFR (CKD-EPI)NonAf 64.41 Random Glucose 116 H Lactic Acid Calcium 8.4 L Total Bilirubin 0.7 AST 37 ALT 28 Alkaline Phosphatase 67 Total Protein 6.0 L Albumin 2.7 L 08/09/19 08/09/19 09:24 10:35 WBC RBC Hgb Hct MCV MCH MCHC RDW Plt Count MPV Absolute Neuts (auto) Neutrophils % Lymphocytes % Monocytes % Eosinophils % Basophils % Nucleated RBC % Anticoagulation Therapy No Result Required. Puncture Site Right radial ABG pH 7.49 H ABG pCO2 at Pt Temp 26.6 L ABG pO2 at Pt Temp 283 H ABG HCO3 20.2 L ABG O2 Sat (Measured) 99.9 H ABG O2 Content 15.3 ABG Base Excess -1.8 Gael Test Positive O2 Delivery Device No Result Required. Oxygen Flow Rate 100 Vent Mode S/t Vent Rate 12 Mechanical Rate Bipap Pressure Support Vent No Result Required. Sodium Potassium Chloride Carbon Dioxide Anion Gap BUN Creatinine Est GFR (CKD-EPI)AfAm Est GFR (CKD-EPI)NonAf Random Glucose Lactic Acid 2.3 H* Calcium Total Bilirubin AST ALT Alkaline Phosphatase Total Protein Albumin Active Medications Generic Name Dose Route Start Last Admin Trade Name Freq PRN Reason Stop Dose Admin Albuterol/Ipratropium 1 amp 08/09/19 08:28 Duoneb - NEB Q4H PRN SHORTNESS OF BREATH Albuterol/Ipratropium 1 amp 08/09/19 12:00 Duoneb - NEB RQ4H PADMINI Atorvastatin Calcium 10 mg 08/07/19 22:00 08/08/19 22:13 Lipitor - PO 10 mg HS PADMINI Administration Chlorhexidine Gluconate 1 applic 08/09/19 22:00 Hibiclens For Decolonization - TP HS PADMINI Cholecalciferol 2,000 unit 08/07/19 10:00 08/09/19 09:09 Vitamin D3 - PO 2,000 unit DAILY PADMINI Administration Clopidogrel Bisulfate 75 mg 08/07/19 10:00 08/09/19 09:10 Plavix - PO 75 mg DAILY PADMINI Administration Docusate Sodium 100 mg 08/07/19 10:00 08/09/19 09:09 Colace - PO 100 mg DAILY PADMINI Administration Enoxaparin Sodium 40 mg 08/07/19 10:00 08/09/19 09:10 Lovenox - SQ 40 mg DAILY PADMINI Administration Ferrous Sulfate 325 mg 08/07/19 10:00 08/09/19 09:10 Feosol - PO 325 mg DAILY PADMINI Administration Piperacillin Sod/Tazobactam 50 mls @ 100 mls/hr 08/07/19 18:00 08/09/19 09:10 Sod 3.375 gm/ Dextrose IVPB 100 mls/hr Q8H-IV PADMINI Administration Protocol Sodium Chloride 1,000 mls @ 75 mls/hr 08/09/19 08:45 Normal Saline - IV ASDIR PADMINI Losartan Potassium 50 mg 08/07/19 10:00 08/09/19 09:10 Cozaar - PO 50 mg DAILY PADMINI Administration Metoprolol Succinate 50 mg 08/07/19 10:00 08/09/19 09:10 Toprol Xl - PO 50 mg DAILY PADMINI Administration Multivitamins 1 each 08/07/19 10:00 08/09/19 09:10 Total B With C - PO 1 each DAILY PADMINI Administration Multivitamins/Minerals/Vitamin C 1 tab 08/07/19 10:00 08/09/19 09:10 Tab-A-Vit - PO 1 tab DAILY PADMINI Administration Mupirocin 1 applic 08/09/19 10:00 Bactroban Ointment (For Decolonization) - NS 08/14/19 09:59 BID PADMINI Polyethylene Glycol 17 gm 08/07/19 04:45 Miralax (For Daily Use) - PO DAILY PRN CONSTIPATION Potassium Chloride 10 meq 08/07/19 10:00 08/09/19 09:10 K-Dur - PO 10 meq DAILY PADMINI Administration Ranitidine HCl 150 mg 08/07/19 10:00 08/09/19 09:10 Zantac - PO 150 mg DAILY PADMINI Administration Sertraline HCl 100 mg 08/07/19 10:00 08/09/19 09:10 Zoloft - PO 100 mg DAILY PADMINI Administration Tramadol HCl 50 mg 08/07/19 16:23 Ultram - PO Q12H PRN PAIN LEVEL 7 - 10 ASSESSMENT/PLAN: Acute Respiratory Failure due to ARDS due to possible Aspiration Pneumonitis Basal cell carcinoma Blindness CVA Hypertension Colon CA HPL NIPPV support, settings were adjusted Aspiration precautions ABX Per ID Follow cultures Judicious IVF Strict I & O Hemodynamic monitoring Replete lytes Requires ICU monitoring Dr Dos Santos Critical care time spent in reviewing chart, evaluating patient and formulating plan - 36 minutes.
[2019-08-09] MEDS ORDERED: D5-1/2NS+20 MEQ KCL - 20 MEQ/1,000 ML INFUS.BAG IV SCH (16:15)
--- NOTE | 2019-08-09 16:15 | PN ---
Teaching Attending Note Name of Resident: Arslan Hilario ATTENDING PHYSICIAN STATEMENT I saw and evaluated the patient. I reviewed the resident's note and discussed the case with the resident. I agree with the resident's findings and plan as documented with exceptions below. SUBJECTIVE: patient seen and examined, no complaints, ROS limited by dementia. tachypneic at rest. OBJECTIVE: Vital Signs Period Temp Pulse Resp BP Sys/Herrmann Pulse Ox Last 24 Hr 98.0 F-101.3 F 78-90 16-36 147-168/88-102 91-100 Intake & Output 08/06/19 08/07/19 08/08/19 08/09/19 23:59 23:59 23:59 23:59 Intake Total 300 1225 1075 Balance 300 1225 1075 Weight 132 lb 9.6 oz general: tachypneic in bed, use of accessory muscles, on Bipap Neck: soft, supple, neck vein distension Chest; scattered rhonchi bilaterally, occasional wheezing, pos air entry Abdomen:soft, Nt, ND Extremities: no edema HEENT: PERRL EOMi Home Medications Medication Instructions Recorded Atorvastatin Ca [Lipitor] 10 mg PO HS 08/07/19 B1/B2/Niacin/B12/Protease 1 each PO DAILY 08/07/19 [B-Complex with B-12 Tablet] Chlorpromazine HCl 25 mg PO DAILY 08/07/19 Cholecalciferol (Vitamin D3) 2,000 unit PO DAILY 08/07/19 [Vitamin D] Clopidogrel Bisulfate [Plavix -] 75 mg PO DAILY 08/07/19 Docusate Sodium [Colace] 100 mg PO DAILY 08/07/19 Famotidine [Pepcid] 40 mg PO DAILY 08/07/19 Ferrous Sulfate 325 mg PO DAILY 08/07/19 Losartan Potassium [Cozaar -] 50 mg PO DAILY 08/07/19 Metoprolol Succinate [Toprol Xl] 50 mg PO DAILY 08/07/19 Multivitamin [One-Daily 1 each PO DAILY 08/07/19 Multi-Vitamin] Polyethylene Glycol 3350 [Miralax 17 gm PO PRN 08/07/19 (For Daily Use) -] Potassium Chloride 10 meq PO DAILY 08/07/19 Sertraline HCl [Zoloft] 100 mg PO DAILY 08/07/19 Tramadol HCl [Ultram] 50 mg PO BID 08/07/19 Active Medications Albuterol/Ipratropium (Duoneb -) 1 amp NEB Q4H PRN PRN Reason: SHORTNESS OF BREATH Albuterol/Ipratropium (Duoneb -) 1 amp NEB RQ4H [facility] Atorvastatin Calcium (Lipitor -) 10 mg PO HS [facility] Chlorhexidine Gluconate (Hibiclens For Decolonization -) 1 applic TP HS [facility] Cholecalciferol (Vitamin D3 -) 2,000 unit PO DAILY [facility] Clopidogrel Bisulfate (Plavix -) 75 mg PO DAILY [facility] Docusate Sodium (Colace -) 100 mg PO DAILY [facility] Enoxaparin Sodium (Lovenox -) 40 mg SQ DAILY [facility] Ferrous Sulfate (Feosol -) 325 mg PO DAILY [facility] Piperacillin Sod/Tazobactam (Sod 3.375 gm/ Dextrose) 50 mls @ 100 mls/hr IVPB Q8H-IV [facility]; Protocol Potassium Chloride/Dextrose/Sod Cl (D5-1/2ns+20 Meq Kcl -) 20 meq in 1,000 mls @ 42 mls/hr IV ASDIR [facility] Losartan Potassium (Cozaar -) 50 mg PO DAILY [facility] Metoprolol Succinate (Toprol Xl -) 50 mg PO DAILY [facility] Multivitamins (Total B With C -) 1 each PO DAILY [facility] Multivitamins/Minerals/Vitamin C (Tab-A-Vit -) 1 tab PO DAILY [facility] Mupirocin (Bactroban Ointment (For Decolonization) -) 1 applic NS BID [facility] Stop: 08/14/19 09:59 Polyethylene Glycol (Miralax (For Daily Use) -) 17 gm PO DAILY PRN PRN Reason: CONSTIPATION Potassium Chloride (K-Dur -) 10 meq PO DAILY [facility] Ranitidine HCl (Zantac -) 150 mg PO DAILY [facility] Sertraline HCl (Zoloft -) 100 mg PO DAILY [facility] Tramadol HCl (Ultram -) 50 mg PO Q12H PRN PRN Reason: PAIN LEVEL 7 - 10 Laboratory Results - last 24 hr 08/09/19 08/09/19 08/09/19 08:45 09:24 09:24 WBC 10.3 H RBC 3.61 L Hgb 10.0 L Hct 29.7 L MCV 82.2 MCH 27.6 MCHC 33.6 RDW 19.0 H Plt Count 169 MPV 8.1 Absolute Neuts (auto) 9.6 H Neutrophils % 92.5 H Neutrophils % (Manual) 94.9 H Band Neutrophils % 0.0 Lymphocytes % 2.6 L D Lymphocytes % (Manual) 4.1 L Monocytes % 4.8 Monocytes % (Manual) 1 L Eosinophils % 0.0 D Eosinophils % (Manual) 0.0 Basophils % 0.1 Basophils % (Manual) 0.0 Myelocytes % (Man) 0 Promyelocytes % (Man) 0 Blast Cells % (Manual) 0 Nucleated RBC % 0 Metamyelocytes 0 Platelet Estimate Decreased Poikilocytosis 1+ Anisocytosis 3+ Ovalocytes 1+ Anticoagulation Therapy No Result Required. Puncture Site Right radial ABG pH 7.53 H ABG pCO2 at Pt Temp 23.2 L ABG pO2 at Pt Temp < 49 L* ABG HCO3 19.2 L ABG O2 Sat (Measured) 85.2 L ABG O2 Content No Result Required. ABG Base Excess -2.2 L Gael Test Positive O2 Delivery Device No Result Required. Oxygen Flow Rate 4l Vent Mode No Result Required. Vent Rate No Result Required. Mechanical Rate No Result Required. Pressure Support Vent No Result Required. Sodium 147 H Potassium 3.1 L Chloride 116 H Carbon Dioxide 21 Anion Gap 10 BUN 18.7 H Creatinine 1.1 Est GFR (CKD-EPI)AfAm 74.65 Est GFR (CKD-EPI)NonAf 64.41 Random Glucose 116 H Lactic Acid Calcium 8.4 L Phosphorus 2.6 Total Bilirubin 0.7 AST 37 ALT 28 Alkaline Phosphatase 67 Total Protein 6.0 L Albumin 2.7 L Urine Color Urine Appearance Urine pH Ur Specific [place] Urine Protein Urine Glucose (UA) Urine Ketones Urine Blood Urine Nitrite Urine Bilirubin Urine Urobilinogen Ur Leukocyte Esterase Urine WBC (Auto) Urine RBC (Auto) Urine Casts (Auto) U Epithel Cells (Auto) Urine Bacteria (Auto) 08/09/19 08/09/19 08/09/19 09:24 10:35 12:00 WBC RBC Hgb Hct MCV MCH MCHC RDW Plt Count MPV Absolute Neuts (auto) Neutrophils % Neutrophils % (Manual) Band Neutrophils % Lymphocytes % Lymphocytes % (Manual) Monocytes % Monocytes % (Manual) Eosinophils % Eosinophils % (Manual) Basophils % Basophils % (Manual) Myelocytes % (Man) Promyelocytes % (Man) Blast Cells % (Manual) Nucleated RBC % Metamyelocytes Platelet Estimate Poikilocytosis Anisocytosis Ovalocytes Anticoagulation Therapy No Result Required. Puncture Site Right radial ABG pH 7.49 H ABG pCO2 at Pt Temp 26.6 L ABG pO2 at Pt Temp 283 H ABG HCO3 20.2 L ABG O2 Sat (Measured) 99.9 H ABG O2 Content 15.3 ABG Base Excess -1.8 Gael Test Positive O2 Delivery Device No Result Required. Oxygen Flow Rate 100 Vent Mode S/t Vent Rate 12 Mechanical Rate Bipap Pressure Support Vent No Result Required. Sodium Potassium Chloride Carbon Dioxide Anion Gap BUN Creatinine Est GFR (CKD-EPI)AfAm Est GFR (CKD-EPI)NonAf Random Glucose Lactic Acid 2.3 H* Calcium Phosphorus Total Bilirubin AST ALT Alkaline Phosphatase Total Protein Albumin Urine Color Yellow Urine Appearance Clear Urine pH 5.0 Ur Specific [place] 1.007 L Urine Protein Negative Urine Glucose (UA) Negative Urine Ketones Negative Urine Blood 1+ H Urine Nitrite Negative Urine Bilirubin Negative Urine Urobilinogen 0.2 Ur Leukocyte Esterase Negative Urine WBC (Auto) 0 Urine RBC (Auto) 0 Urine Casts (Auto) 1 U Epithel Cells (Auto) 0.2 Urine Bacteria (Auto) 1.5 Microbiology 08/07/19 01:05 Urine - Urine Clean Catch Urine Culture - Final NO GROWTH OBTAINED 08/07/19 00:35 Blood - Peripheral Venous Blood Culture - Preliminary NO GROWTH OBTAINED AFTER 48 HOURS, INCUBATION TO CONTINUE FOR 3 DAYS. 08/07/19 00:35 Blood - Peripheral Venous Blood Culture - Preliminary NO GROWTH OBTAINED AFTER 48 HOURS, INCUBATION TO CONTINUE FOR 3 DAYS. 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 placed on bipap, ABG done and noted. Solumedrol 125 mg IV x 1, lasix 40 mg IV x 1. CXR reviewed, concerning for ARDS. Discussed with ICU, transferred to ICU. NPO for now. Judicious IVF, D5-1/2 NS, monitor Na levels. Speech/swallow input noted. Check 2D echo. ID input noted. Zosyn/Azithromycin day 3, urine PNA studies/Cultures neg so far. Aspiration precautions. Standing and prn nebs. Hold off on steroids given improvement. Replete K/Phos prn. Metoprolol/losartan as hemodynamics tolerate. DVTPPX heparin Dispo total critical care time spent 38 min. Continue to address goals of care with patient and family. Critical Care Total Critical Care Time (in minutes): 38 Critical Care Statement: The care of this patient involved high complexity decision making to prevent further life threatening deterioration of the patient 's condition and/or to evaluate & treat vital organ system(s) failure or risk of failure.
[2019-08-09] MEDS: VANCOMYCIN 1 GRAM (PRE-DOCKED) 1,000 MG/250 ML BAG IVPB SCH (17:20)
[2019-08-09] MEDS: MUPIROCIN 2% TOPICAL OINTMENT FOR DECOLONIZATION NS SCH ×2 (17:23→21:45)
--- NOTE | 2019-08-09 17:27 | PN ---
Physical Exam: SUBJECTIVE: Patient seen and examined OBJECTIVE: Vital Signs Period Temp Pulse Resp BP Sys/Herrmann Pulse Ox Last 24 Hr 98.0 F-101.3 F 78-90 16-36 147-168/88-102 91-100 Gen: AAOx1, tachypnic, diaphoretic HEENT: NCAT, very dry mucous membranes Neck: supple, no jvd Cardio: tachycardic regular, ns1s2, no mrg Pulm: bilateral ronchi Abd: soft, nontender, nondistended Laboratory Results - last 24 hr 08/09/19 08/09/19 08/09/19 08:45 09:24 09:24 WBC 10.3 H RBC 3.61 L Hgb 10.0 L Hct 29.7 L MCV 82.2 MCH 27.6 MCHC 33.6 RDW 19.0 H Plt Count 169 MPV 8.1 Absolute Neuts (auto) 9.6 H Neutrophils % 92.5 H Neutrophils % (Manual) 94.9 H Band Neutrophils % 0.0 Lymphocytes % 2.6 L D Lymphocytes % (Manual) 4.1 L Monocytes % 4.8 Monocytes % (Manual) 1 L Eosinophils % 0.0 D Eosinophils % (Manual) 0.0 Basophils % 0.1 Basophils % (Manual) 0.0 Myelocytes % (Man) 0 Promyelocytes % (Man) 0 Blast Cells % (Manual) 0 Nucleated RBC % 0 Metamyelocytes 0 Platelet Estimate Decreased Poikilocytosis 1+ Anisocytosis 3+ Ovalocytes 1+ Anticoagulation Therapy No Result Required. Puncture Site Right radial ABG pH 7.53 H ABG pCO2 at Pt Temp 23.2 L ABG pO2 at Pt Temp < 49 L* ABG HCO3 19.2 L ABG O2 Sat (Measured) 85.2 L ABG O2 Content No Result Required. ABG Base Excess -2.2 L Gael Test Positive O2 Delivery Device No Result Required. Oxygen Flow Rate 4l Vent Mode No Result Required. Vent Rate No Result Required. Mechanical Rate No Result Required. Pressure Support Vent No Result Required. Sodium 147 H Potassium 3.1 L Chloride 116 H Carbon Dioxide 21 Anion Gap 10 BUN 18.7 H Creatinine 1.1 Est GFR (CKD-EPI)AfAm 74.65 Est GFR (CKD-EPI)NonAf 64.41 Random Glucose 116 H Lactic Acid Calcium 8.4 L Phosphorus 2.6 Total Bilirubin 0.7 AST 37 ALT 28 Alkaline Phosphatase 67 Total Protein 6.0 L Albumin 2.7 L Urine Color Urine Appearance Urine pH Ur Specific [place] Urine Protein Urine Glucose (UA) Urine Ketones Urine Blood Urine Nitrite Urine Bilirubin Urine Urobilinogen Ur Leukocyte Esterase Urine WBC (Auto) Urine RBC (Auto) Urine Casts (Auto) U Epithel Cells (Auto) Urine Bacteria (Auto) 08/09/19 08/09/19 08/09/19 09:24 10:35 12:00 WBC RBC Hgb Hct MCV MCH MCHC RDW Plt Count MPV Absolute Neuts (auto) Neutrophils % Neutrophils % (Manual) Band Neutrophils % Lymphocytes % Lymphocytes % (Manual) Monocytes % Monocytes % (Manual) Eosinophils % Eosinophils % (Manual) Basophils % Basophils % (Manual) Myelocytes % (Man) Promyelocytes % (Man) Blast Cells % (Manual) Nucleated RBC % Metamyelocytes Platelet Estimate Poikilocytosis Anisocytosis Ovalocytes Anticoagulation Therapy No Result Required. Puncture Site Right radial ABG pH 7.49 H ABG pCO2 at Pt Temp 26.6 L ABG pO2 at Pt Temp 283 H ABG HCO3 20.2 L ABG O2 Sat (Measured) 99.9 H ABG O2 Content 15.3 ABG Base Excess -1.8 Gael Test Positive O2 Delivery Device No Result Required. Oxygen Flow Rate 100 Vent Mode S/t Vent Rate 12 Mechanical Rate Bipap Pressure Support Vent No Result Required. Sodium Potassium Chloride Carbon Dioxide Anion Gap BUN Creatinine Est GFR (CKD-EPI)AfAm Est GFR (CKD-EPI)NonAf Random Glucose Lactic Acid 2.3 H* Calcium Phosphorus Total Bilirubin AST ALT Alkaline Phosphatase Total Protein Albumin Urine Color Yellow Urine Appearance Clear Urine pH 5.0 Ur Specific [place] 1.007 L Urine Protein Negative Urine Glucose (UA) Negative Urine Ketones Negative Urine Blood 1+ H Urine Nitrite Negative Urine Bilirubin Negative Urine Urobilinogen 0.2 Ur Leukocyte Esterase Negative Urine WBC (Auto) 0 Urine RBC (Auto) 0 Urine Casts (Auto) 1 U Epithel Cells (Auto) 0.2 Urine Bacteria (Auto) 1.5 Active Medications Generic Name Dose Route Start Last Admin Trade Name Freq PRN Reason Stop Dose Admin Albuterol/Ipratropium 1 amp 08/09/19 14:11 Duoneb - NEB Q4H PRN SHORTNESS OF BREATH Albuterol/Ipratropium 1 amp 08/09/19 16:00 08/09/19 16:59 Duoneb - NEB 1 amp RQ4H [facility] Administration Atorvastatin Calcium 10 mg 08/09/19 22:00 Lipitor - PO HS [facility] Chlorhexidine Gluconate 1 applic 08/09/19 22:00 Hibiclens For Decolonization - TP HS [facility] Cholecalciferol 2,000 unit 08/10/19 10:00 Vitamin D3 - PO DAILY [facility] Clopidogrel Bisulfate 75 mg 08/10/19 10:00 Plavix - PO DAILY [facility] Docusate Sodium 100 mg 08/10/19 10:00 Colace - PO DAILY [facility] Enoxaparin Sodium 40 mg 08/10/19 10:00 Lovenox - SQ DAILY [facility] Ferrous Sulfate 325 mg 08/10/19 10:00 Feosol - PO DAILY [facility] Piperacillin Sod/Tazobactam 50 mls @ 100 mls/hr 08/09/19 18:00 Sod 3.375 gm/ Dextrose IVPB Q8H-IV [facility] Protocol Potassium Chloride/Dextrose/Sod Cl 20 meq in 1,000 mls @ 42 mls/hr 08/09/19 16 :15 D5-1/2ns+20 Meq Kcl - IV ASDIR [facility] Vancomycin HCl 1,000 mg in 250 mls @ 166.667 mls/hr 08/09/19 17:00 Vancomycin (Pre-Docked) IVPB DAILY@1700 [facility] Protocol Losartan Potassium 50 mg 08/10/19 10:00 Cozaar - PO DAILY [facility] Metoprolol Succinate 50 mg 08/10/19 10:00 Toprol Xl - PO DAILY [facility] Multivitamins 1 each 08/10/19 10:00 Total B With C - PO DAILY [facility] Multivitamins/Minerals/Vitamin C 1 tab 08/10/19 10:00 Tab-A-Vit - PO DAILY [facility] Mupirocin 1 applic 08/09/19 10:00 Bactroban Ointment (For Decolonization) - NS 08/14/19 09:59 BID [facility] Polyethylene Glycol 17 gm 08/09/19 14:11 Miralax (For Daily Use) - PO DAILY PRN [facility] Potassium Chloride 10 meq 08/10/19 10:00 K-Dur - PO DAILY [facility] Ranitidine HCl 150 mg 08/10/19 10:00 Zantac - PO DAILY [facility] Sertraline HCl 100 mg 08/10/19 10:00 Zoloft - PO DAILY [facility] Tramadol HCl 50 mg 08/09/19 14:11 Ultram - PO Q12H PRN PAIN LEVEL 7 - 10 ASSESSMENT/PLAN: Pt is a 78 year old male with a past medical history of basal cell carcinoma, blindness, stroke, hypertension, colon CA, HLD who is admitted for shortness of breath likely secondary to pneumonia. #Sepsis - on exam this morning, pt was tachypnic, diaphoretic, and in distress - Pulse ox found to be 85%. Pt was put on bilevel ventilation support, sat improved to 95% - ABG preceding Bilevel showed hypoxia and resp alkalosis - CXR shows b/l fluffy infiltrates suspicious for ARDS - transfer to ICU - cautious hydration - replete lytes - abx - solumedrol Hypertension - Metoprolol Succinate, Losartan Hyperlipidemia - Atorvastatin Code status discussed with patient's and daughter (by phone) at length today. Pt is DNR. However, family would opt for intubation if indicated in the acute setting with the understanding that they may pursue compassionate extubation at a later date. Visit type - Emergency Visit Emergency Visit: No - New Patient This patient is new to me today: No - Critical Care Critical Care patient: Yes Total Critical Care Time (in minutes): 25 ATTENDING PHYSICIAN STATEMENT I saw and evaluated the patient. I reviewed the resident's note and discussed the case with the resident. I agree with the resident's findings and plan as documented. SUBJECTIVE: OBJECTIVE: ASSESSMENT AND PLAN:
[2019-08-09] MEDS: ATORVASTATIN CA 10 MG TABLET (FP) PO SCH (21:13)
[2019-08-09] MEDS: CHLORHEXIDINE GLUCONATE 4% CLEANSER FOR DECOLONIZATION TP SCH (21:43)
[2019-08-10] MEDS: ALBUTEROL SO4 2.5/IPRATROPIUM 0.5 INH SOL 3 ML VIAL.NEB. NEB SCH ×6 (00:29→20:33)
[2019-08-10] MEDS ORDERED: PIPERACILLIN/TAZOBACTAM 3.375 GM VIAL IVPB ONE ×3 (01:08→16:39)
[2019-08-10] MEDS ORDERED: DEXTROSE 5%-WATER - 50 ML IVPB ONE ×3 (01:08→16:39)
[2019-08-10] MEDS: PIPERACILLIN/TAZOB 3.375 GM 3.375 GM in DEXTROSE 5%-WATER - 50 ML IVPB SCH ×3 (01:12→17:18)
[2019-08-10 06:41] LABS: ARTERIAL BLD GAS O2 SATURATION 99.7 % (95-98); ARTERIAL BLOOD GAS BASE EXCESS 2.1 meq/l (-2-2); ARTERIAL BLOOD GAS PCO2 30.1 mmHg (35-45); ARTERIAL BLOOD GAS PO2 167 mmHg (80-100); ARTERIAL BLOOD GAS pH 7.52 (7.35-7.45)
[2019-08-10 06:42] LABS: ALLENS TEST POSITIVE
[2019-08-10 07:49] LABS: BASO % 0.2 % (0-2.0); HEMATOCRIT 33.7 % (35.4-49); LYMPH % 3.9 % (8-40); MCHC 32.7 g/dl (32.0-35.9); MEAN CELL VOLUME 82.6 fl (80-96); MEAN PLT VOLUME 8.2 fl (7.5-11.1); MONO % 5.6 % (3.8-10.2); NEUT % 90.3 % (42.8-82.8); PLATELET COUNT 211 K/MM3 (134-434); RBC 4.09 M/mm3 (4.00-5.60); RDW 18.8 % (11.9-15.9); WHITE BLOOD COUNT 11.8 K/mm3 (4.0-10.0)
[2019-08-10 08:37] LABS: ALBUMIN 2.8 g/dl (3.4-5.0); BILIRUBIN,TOTAL 0.8 mg/dL (0.2-1); CALCIUM 9.1 mg/dL (8.5-10.1); CREATININE 1.1 mg/dL (0.55-1.3); MAGNESIUM 2.2 mg/dL (1.8-2.4); PHOSPHOROUS 3.3 mg/dL (2.5-4.9); POTASSIUM 3.7 mmol/L (3.5-5.1); TOT PROT 6.9 g/dl (6.4-8.2)
--- NOTE | 2019-08-10 10:17 | PN ---
Physical Exam: SUBJECTIVE: Patient seen and examined in ICU. Tolerated bipap overnight. Now improved. No chest pain, does complain of some shortness of breath, but tolerating nasal cannula without respiratory distress OBJECTIVE: Vital Signs Period Temp Pulse Resp BP Sys/Herrmann Pulse Ox Last 24 Hr 98.2 F-101.3 F 50-84 20-36 147-187/74-102 99-100 GENERAL: The patient is awake, alert, and oriented to self/place, not year, in no acute distress. HEAD: Normal with no signs of trauma. EYES: PERRL, extraocular movements intact, sclera anicteric, conjunctiva clear ENT: Ears normal, nares patent, oropharynx clear without exudates, moist mucous membranes. NECK: Trachea midline, full range of motion, supple. LUNGS: Breath sounds equal, normal respiratory effort, crackles in R base HEART: Regular rate and rhythm, S1, S2 without murmur, rub or gallop. ABDOMEN: Soft, nontender, nondistended, normoactive bowel sounds, no guarding, no rebound, no hepatosplenomegaly, no masses. EXTREMITIES: 2+ pulses, warm, well-perfused, no edema. NEUROLOGICAL: Cranial nerves II through XII grossly intact. Normal speech, moving all extremities equally PSYCH: Normal mood, normal affect. Laboratory Results - last 24 hr 08/09/19 08/09/19 08/09/19 09:24 09:24 09:24 WBC RBC Hgb Hct MCV MCH MCHC RDW Plt Count MPV Absolute Neuts (auto) Neutrophils % Neutrophils % (Manual) 94.9 H Band Neutrophils % 0.0 Lymphocytes % Lymphocytes % (Manual) 4.1 L Monocytes % Monocytes % (Manual) 1 L Eosinophils % Eosinophils % (Manual) 0.0 Basophils % Basophils % (Manual) 0.0 Myelocytes % (Man) 0 Promyelocytes % (Man) 0 Blast Cells % (Manual) 0 Nucleated RBC % Metamyelocytes 0 Platelet Estimate Decreased Poikilocytosis 1+ Anisocytosis 3+ Ovalocytes 1+ Anticoagulation Therapy Puncture Site ABG pH ABG pCO2 at Pt Temp ABG pO2 at Pt Temp ABG HCO3 ABG O2 Sat (Measured) ABG O2 Content ABG Base Excess Gael Test O2 Delivery Device Oxygen Flow Rate Vent Mode Vent Rate Mechanical Rate PEEP Pressure Support Vent Sodium 147 H Potassium 3.1 L Chloride 116 H Carbon Dioxide 21 Anion Gap 10 BUN 18.7 H Creatinine 1.1 Est GFR (CKD-EPI)AfAm 74.65 Est GFR (CKD-EPI)NonAf 64.41 Random Glucose 116 H Lactic Acid 2.3 H* Calcium 8.4 L Phosphorus 2.6 Magnesium Total Bilirubin 0.7 AST 37 ALT 28 Alkaline Phosphatase 67 Total Protein 6.0 L Albumin 2.7 L Urine Color Urine Appearance Urine pH Ur Specific [place] Urine Protein Urine Glucose (UA) Urine Ketones Urine Blood Urine Nitrite Urine Bilirubin Urine Urobilinogen Ur Leukocyte Esterase Urine WBC (Auto) Urine RBC (Auto) Urine Casts (Auto) U Epithel Cells (Auto) Urine Bacteria (Auto) 08/09/19 08/09/19 08/10/19 10:35 12:00 05:45 WBC 11.8 H RBC 4.09 Hgb 11.0 L Hct 33.7 L MCV 82.6 MCH 27.0 MCHC 32.7 RDW 18.8 H Plt Count 211 D MPV 8.2 Absolute Neuts (auto) 10.6 H Neutrophils % 90.3 H Neutrophils % (Manual) Band Neutrophils % Lymphocytes % 3.9 L D Lymphocytes % (Manual) Monocytes % 5.6 Monocytes % (Manual) Eosinophils % 0.0 Eosinophils % (Manual) Basophils % 0.2 Basophils % (Manual) Myelocytes % (Man) Promyelocytes % (Man) Blast Cells % (Manual) Nucleated RBC % 0 Metamyelocytes Platelet Estimate Poikilocytosis Anisocytosis Ovalocytes Anticoagulation Therapy No Result Required. Puncture Site Right radial ABG pH 7.49 H ABG pCO2 at Pt Temp 26.6 L ABG pO2 at Pt Temp 283 H ABG HCO3 20.2 L ABG O2 Sat (Measured) 99.9 H ABG O2 Content 15.3 ABG Base Excess -1.8 Gael Test Positive O2 Delivery Device No Result Required. Oxygen Flow Rate 100 Vent Mode S/t Vent Rate 12 Mechanical Rate Bipap PEEP Pressure Support Vent No Result Required. Sodium Potassium Chloride Carbon Dioxide Anion Gap BUN Creatinine Est GFR (CKD-EPI)AfAm Est GFR (CKD-EPI)NonAf Random Glucose Lactic Acid Calcium Phosphorus Magnesium Total Bilirubin AST ALT Alkaline Phosphatase Total Protein Albumin Urine Color Yellow Urine Appearance Clear Urine pH 5.0 Ur Specific [place] 1.007 L Urine Protein Negative Urine Glucose (UA) Negative Urine Ketones Negative Urine Blood 1+ H Urine Nitrite Negative Urine Bilirubin Negative Urine Urobilinogen 0.2 Ur Leukocyte Esterase Negative Urine WBC (Auto) 0 Urine RBC (Auto) 0 Urine Casts (Auto) 1 U Epithel Cells (Auto) 0.2 Urine Bacteria (Auto) 1.5 08/10/19 08/10/19 05:45 06:30 WBC RBC Hgb Hct MCV MCH MCHC RDW Plt Count MPV Absolute Neuts (auto) Neutrophils % Neutrophils % (Manual) Band Neutrophils % Lymphocytes % Lymphocytes % (Manual) Monocytes % Monocytes % (Manual) Eosinophils % Eosinophils % (Manual) Basophils % Basophils % (Manual) Myelocytes % (Man) Promyelocytes % (Man) Blast Cells % (Manual) Nucleated RBC % Metamyelocytes Platelet Estimate Poikilocytosis Anisocytosis Ovalocytes Anticoagulation Therapy No Result Required. Puncture Site Right radial ABG pH 7.52 H ABG pCO2 at Pt Temp 30.1 L ABG pO2 at Pt Temp 167 H ABG HCO3 24.2 ABG O2 Sat (Measured) 99.7 H ABG O2 Content 15.0 ABG Base Excess 2.1 H Gael Test Positive O2 Delivery Device Bipap Oxygen Flow Rate 40% Vent Mode No Result Required. Vent Rate 12 Mechanical Rate No Result Required. PEEP 8.0 Pressure Support Vent No Result Required. Sodium 146 H Potassium 3.7 Chloride 109 H Carbon Dioxide 28 Anion Gap 9 BUN 26.0 H Creatinine 1.1 Est GFR (CKD-EPI)AfAm 74.65 Est GFR (CKD-EPI)NonAf 64.41 Random Glucose 108 H Lactic Acid Calcium 9.1 Phosphorus 3.3 Magnesium 2.2 Total Bilirubin 0.8 AST 47 H ALT 36 Alkaline Phosphatase 71 Total Protein 6.9 Albumin 2.8 L Urine Color Urine Appearance Urine pH Ur Specific [place] Urine Protein Urine Glucose (UA) Urine Ketones Urine Blood Urine Nitrite Urine Bilirubin Urine Urobilinogen Ur Leukocyte Esterase Urine WBC (Auto) Urine RBC (Auto) Urine Casts (Auto) U Epithel Cells (Auto) Urine Bacteria (Auto) Active Medications Generic Name Dose Route Start Last Admin Trade Name Freq PRN Reason Stop Dose Admin Albuterol/Ipratropium 1 amp 08/09/19 14:11 Duoneb - NEB Q4H PRN SHORTNESS OF BREATH Albuterol/Ipratropium 1 amp 08/09/19 16:00 08/10/19 04:56 Duoneb - NEB 1 amp RQ4H [facility] Administration Atorvastatin Calcium 10 mg 08/09/19 22:00 08/09/19 21:13 Lipitor - PO Not Given HS [facility] Chlorhexidine Gluconate 1 applic 08/09/19 22:00 08/09/19 21:43 Hibiclens For Decolonization - TP 1 applic HS [facility] Administration Cholecalciferol 2,000 unit 08/10/19 10:00 Vitamin D3 - PO DAILY [facility] Clopidogrel Bisulfate 75 mg 08/10/19 10:00 Plavix - PO DAILY [facility] Docusate Sodium 100 mg 08/10/19 10:00 Colace - PO DAILY [facility] Enoxaparin Sodium 40 mg 08/10/19 10:00 Lovenox - SQ DAILY [facility] Ferrous Sulfate 325 mg 08/10/19 10:00 Feosol - PO DAILY [facility] Piperacillin Sod/Tazobactam 50 mls @ 100 mls/hr 08/09/19 18:00 08/10/19 01:12 Sod 3.375 gm/ Dextrose IVPB 100 mls/hr Q8H-IV [facility] Administration Protocol Potassium Chloride/Dextrose/Sod Cl 20 meq in 1,000 mls @ 42 mls/hr 08/09/19 16 :15 08/09/19 17:19 D5-1/2ns+20 Meq Kcl - IV 42 mls/hr ASDIR [facility] Administration Vancomycin HCl 1,000 mg in 250 mls @ 166.667 mls/hr 08/09/19 17:00 08/09/19 17:20 Vancomycin (Pre-Docked) IVPB 166.667 mls/hr DAILY@1700 [facility] Administration Protocol Losartan Potassium 50 mg 08/10/19 10:00 Cozaar - PO DAILY [facility] Metoprolol Succinate 50 mg 08/10/19 10:00 Toprol Xl - PO DAILY [facility] Multivitamins 1 each 08/10/19 10:00 Total B With C - PO DAILY [facility] Multivitamins/Minerals/Vitamin C 1 tab 08/10/19 10:00 Tab-A-Vit - PO DAILY [facility] Mupirocin 1 applic 08/09/19 10:00 08/09/19 21:45 Bactroban Ointment (For Decolonization) - NS 08/14/19 09:59 1 applic BID [facility] Administration Polyethylene Glycol 17 gm 08/09/19 14:11 Miralax (For Daily Use) - PO DAILY PRN CONSTIPATION Potassium Chloride 10 meq 08/10/19 10:00 K-Dur - PO DAILY [facility] Ranitidine HCl 150 mg 08/10/19 10:00 Zantac - PO DAILY [facility] Sertraline HCl 100 mg 08/10/19 10:00 Zoloft - PO DAILY [facility] Tramadol HCl 50 mg 08/09/19 14:11 Ultram - PO Q12H PRN PAIN LEVEL 7 - 10 ASSESSMENT/PLAN: Patient is a 78M with history of basal cell carcinoma, blindness, stroke, hypertension, colon CA, HLD here today with aspiration pneumonia, now causing ARDS. #Respiratory ARDS 2/2 aspiration pneumonia (resolved) - CXR improved, ABG alkalotic with appropriate oxygenation, ARDS resolved - Maintaining on NC #ID - ID on board, on zosyn for presumed aspiration pneumonia - Febrile, sending new cultures - Bandemia on prior CBCs - Lactate clear - Tylenol PRN for fever #CV - BPs stable. Maintain maps > 65 - Home meds for CAD and BP history #FEN/GI - Replete electrolytes as necessary - Will start diet Dispo: Transfer to tele Visit type - Emergency Visit Emergency Visit: Yes ED Registration Date: 08/07/19 Care time: The patient presented to the Emergency Department on the above date and was hospitalized for further evaluation of their emergent condition. - New Patient This patient is new to me today: No - Critical Care Critical Care patient: Yes Total Critical Care Time (in minutes): 40 Critical Care Statement: The care of this patient involved high complexity decision making to prevent further life threatening deterioration of the patient 's condition and/or to evaluate & treat vital organ system(s) failure or risk of failure. ATTENDING PHYSICIAN STATEMENT I saw and evaluated the patient. I reviewed the resident's note and discussed the case with the resident. I agree with the resident's findings and plan as documented. SUBJECTIVE: OBJECTIVE: ASSESSMENT AND PLAN:
--- NOTE | 2019-08-10 10:22 | PN ---
Teaching Attending Note Name of Resident: Brian Treviño ATTENDING PHYSICIAN STATEMENT I saw and evaluated the patient. I reviewed the resident's note and discussed the case with the resident. I agree with the resident's findings and plan as documented. SUBJECTIVE: Patient seen and examined in the ICU. More awake and alert today. On NC O2. Knows he is in the hospital. Denies CP but reports SOB, although subjectively better. Intake & Output 08/07/19 08/08/19 08/09/19 08/10/19 23:59 23:59 23:59 23:59 Intake Total 300 1225 1525 533 Output Total 800 Balance 300 1225 725 533 Weight 132 lb 9.6 oz Last Vital Signs Temp Pulse Resp BP Pulse Ox 98.2 F 79 20 160/80 100 08/10/19 06:38 08/10/19 09:25 08/10/19 09:25 08/10/19 09:25 08/10/19 04:57 Active Medications Albuterol/Ipratropium (Duoneb -) 1 amp NEB Q4H PRN PRN Reason: SHORTNESS OF BREATH Albuterol/Ipratropium (Duoneb -) 1 amp NEB RQ4H [facility] Last Admin: 08/10/19 04:56 Dose: 1 amp Atorvastatin Calcium (Lipitor -) 10 mg PO HS [facility] Last Admin: 08/09/19 21:13 Dose: Not Given Chlorhexidine Gluconate (Hibiclens For Decolonization -) 1 applic TP HS [facility] Last Admin: 08/09/19 21:43 Dose: 1 applic Cholecalciferol (Vitamin D3 -) 2,000 unit PO DAILY [facility] Clopidogrel Bisulfate (Plavix -) 75 mg PO DAILY [facility] Docusate Sodium (Colace -) 100 mg PO DAILY [facility] Enoxaparin Sodium (Lovenox -) 40 mg SQ DAILY [facility] Ferrous Sulfate (Feosol -) 325 mg PO DAILY [facility] Piperacillin Sod/Tazobactam (Sod 3.375 gm/ Dextrose) 50 mls @ 100 mls/hr IVPB Q8H-IV [facility]; Protocol Last Admin: 08/10/19 01:12 Dose: 100 mls/hr Potassium Chloride/Dextrose/Sod Cl (D5-1/2ns+20 Meq Kcl -) 20 meq in 1,000 mls @ 42 mls/hr IV ASDIR [facility] Last Admin: 08/09/19 17:19 Dose: 42 mls/hr Vancomycin HCl (Vancomycin (Pre-Docked)) 1,000 mg in 250 mls @ 166.667 mls/hr IVPB DAILY@1700 [facility]; Protocol Last Admin: 08/09/19 17:20 Dose: 166.667 mls/hr Losartan Potassium (Cozaar -) 50 mg PO DAILY [facility] Metoprolol Succinate (Toprol Xl -) 50 mg PO DAILY [facility] Multivitamins (Total B With C -) 1 each PO DAILY [facility] Multivitamins/Minerals/Vitamin C (Tab-A-Vit -) 1 tab PO DAILY [facility] Mupirocin (Bactroban Ointment (For Decolonization) -) 1 applic NS BID [facility] Stop: 08/14/19 09:59 Last Admin: 08/09/19 21:45 Dose: 1 applic Polyethylene Glycol (Miralax (For Daily Use) -) 17 gm PO DAILY PRN PRN Reason: CONSTIPATION Potassium Chloride (K-Dur -) 10 meq PO DAILY [facility] Ranitidine HCl (Zantac -) 150 mg PO DAILY [facility] Sertraline HCl (Zoloft -) 100 mg PO DAILY [facility] Tramadol HCl (Ultram -) 50 mg PO Q12H PRN PRN Reason: PAIN LEVEL 7 - 10 GENERAL: Awake and alert on NC O2, confused HEAD: Normal with no signs of trauma. EYES: Pupils equal, round and reactive to light NECK: Normal range of motion, supple without lymphadenopathy, JVD, or masses. LUNGS: Improving bilateral coarse breath sounds HEART: S1S2 ABDOMEN: Soft, nontender, not distended, normoactive bowel sounds, no guarding, no rebound, no masses. No hepatomegaly or splenomegaly. MUSCULOSKELETAL: Normal range of motion at all joints. No bony deformities or tenderness. No CVA tenderness. UPPER EXTREMITIES: warm, No peripheral edema LOWER EXTREMITIES: warm, No calf tenderness. No peripheral edema. NEUROLOGICAL: Awake and alert, responsive SKIN: Warm, dry, normal turgor, no rashes or lesions noted. Laboratory Results - last 24 hr 08/09/19 08/09/19 08/09/19 09:24 09:24 09:24 WBC RBC Hgb Hct MCV MCH MCHC RDW Plt Count MPV Absolute Neuts (auto) Neutrophils % Neutrophils % (Manual) 94.9 H Band Neutrophils % 0.0 Lymphocytes % Lymphocytes % (Manual) 4.1 L Monocytes % Monocytes % (Manual) 1 L Eosinophils % Eosinophils % (Manual) 0.0 Basophils % Basophils % (Manual) 0.0 Myelocytes % (Man) 0 Promyelocytes % (Man) 0 Blast Cells % (Manual) 0 Nucleated RBC % Metamyelocytes 0 Platelet Estimate Decreased Poikilocytosis 1+ Anisocytosis 3+ Ovalocytes 1+ Anticoagulation Therapy Puncture Site ABG pH ABG pCO2 at Pt Temp ABG pO2 at Pt Temp ABG HCO3 ABG O2 Sat (Measured) ABG O2 Content ABG Base Excess Gael Test O2 Delivery Device Oxygen Flow Rate Vent Mode Vent Rate Mechanical Rate PEEP Pressure Support Vent Sodium 147 H Potassium 3.1 L Chloride 116 H Carbon Dioxide 21 Anion Gap 10 BUN 18.7 H Creatinine 1.1 Est GFR (CKD-EPI)AfAm 74.65 Est GFR (CKD-EPI)NonAf 64.41 Random Glucose 116 H Lactic Acid 2.3 H* Calcium 8.4 L Phosphorus 2.6 Magnesium Total Bilirubin 0.7 AST 37 ALT 28 Alkaline Phosphatase 67 Total Protein 6.0 L Albumin 2.7 L Urine Color Urine Appearance Urine pH Ur Specific [place] Urine Protein Urine Glucose (UA) Urine Ketones Urine Blood Urine Nitrite Urine Bilirubin Urine Urobilinogen Ur Leukocyte Esterase Urine WBC (Auto) Urine RBC (Auto) Urine Casts (Auto) U Epithel Cells (Auto) Urine Bacteria (Auto) 08/09/19 08/09/19 08/10/19 10:35 12:00 05:45 WBC 11.8 H RBC 4.09 Hgb 11.0 L Hct 33.7 L MCV 82.6 MCH 27.0 MCHC 32.7 RDW 18.8 H Plt Count 211 D MPV 8.2 Absolute Neuts (auto) 10.6 H Neutrophils % 90.3 H Neutrophils % (Manual) Band Neutrophils % Lymphocytes % 3.9 L D Lymphocytes % (Manual) Monocytes % 5.6 Monocytes % (Manual) Eosinophils % 0.0 Eosinophils % (Manual) Basophils % 0.2 Basophils % (Manual) Myelocytes % (Man) Promyelocytes % (Man) Blast Cells % (Manual) Nucleated RBC % 0 Metamyelocytes Platelet Estimate Poikilocytosis Anisocytosis Ovalocytes Anticoagulation Therapy No Result Required. Puncture Site Right radial ABG pH 7.49 H ABG pCO2 at Pt Temp 26.6 L ABG pO2 at Pt Temp 283 H ABG HCO3 20.2 L ABG O2 Sat (Measured) 99.9 H ABG O2 Content 15.3 ABG Base Excess -1.8 Gael Test Positive O2 Delivery Device No Result Required. Oxygen Flow Rate 100 Vent Mode S/t Vent Rate 12 Mechanical Rate Bipap PEEP Pressure Support Vent No Result Required. Sodium Potassium Chloride Carbon Dioxide Anion Gap BUN Creatinine Est GFR (CKD-EPI)AfAm Est GFR (CKD-EPI)NonAf Random Glucose Lactic Acid Calcium Phosphorus Magnesium Total Bilirubin AST ALT Alkaline Phosphatase Total Protein Albumin Urine Color Yellow Urine Appearance Clear Urine pH 5.0 Ur Specific [place] 1.007 L Urine Protein Negative Urine Glucose (UA) Negative Urine Ketones Negative Urine Blood 1+ H Urine Nitrite Negative Urine Bilirubin Negative Urine Urobilinogen 0.2 Ur Leukocyte Esterase Negative Urine WBC (Auto) 0 Urine RBC (Auto) 0 Urine Casts (Auto) 1 U Epithel Cells (Auto) 0.2 Urine Bacteria (Auto) 1.5 08/10/19 08/10/19 05:45 06:30 WBC RBC Hgb Hct MCV MCH MCHC RDW Plt Count MPV Absolute Neuts (auto) Neutrophils % Neutrophils % (Manual) Band Neutrophils % Lymphocytes % Lymphocytes % (Manual) Monocytes % Monocytes % (Manual) Eosinophils % Eosinophils % (Manual) Basophils % Basophils % (Manual) Myelocytes % (Man) Promyelocytes % (Man) Blast Cells % (Manual) Nucleated RBC % Metamyelocytes Platelet Estimate Poikilocytosis Anisocytosis Ovalocytes Anticoagulation Therapy No Result Required. Puncture Site Right radial ABG pH 7.52 H ABG pCO2 at Pt Temp 30.1 L ABG pO2 at Pt Temp 167 H ABG HCO3 24.2 ABG O2 Sat (Measured) 99.7 H ABG O2 Content 15.0 ABG Base Excess 2.1 H Gael Test Positive O2 Delivery Device Bipap Oxygen Flow Rate 40% Vent Mode No Result Required. Vent Rate 12 Mechanical Rate No Result Required. PEEP 8.0 Pressure Support Vent No Result Required. Sodium 146 H Potassium 3.7 Chloride 109 H Carbon Dioxide 28 Anion Gap 9 BUN 26.0 H Creatinine 1.1 Est GFR (CKD-EPI)AfAm 74.65 Est GFR (CKD-EPI)NonAf 64.41 Random Glucose 108 H Lactic Acid Calcium 9.1 Phosphorus 3.3 Magnesium 2.2 Total Bilirubin 0.8 AST 47 H ALT 36 Alkaline Phosphatase 71 Total Protein 6.9 Albumin 2.8 L Urine Color Urine Appearance Urine pH Ur Specific [place] Urine Protein Urine Glucose (UA) Urine Ketones Urine Blood Urine Nitrite Urine Bilirubin Urine Urobilinogen Ur Leukocyte Esterase Urine WBC (Auto) Urine RBC (Auto) Urine Casts (Auto) U Epithel Cells (Auto) Urine Bacteria (Auto) ASSESSMENT/PLAN: Acute Respiratory Failure due to ARDS due to possible Aspiration Pneumonitis Basal cell carcinoma Blindness CVA Hypertension Colon CA HPL NC O2 as tolerated NIPPV support as needed Aspiration precautions ABX Per ID Follow cultures DC IVF Follow I & O Replete lytes Trial of PO 4W / 4S monitoring Dr Dos Santos
--- NOTE | 2019-08-10 10:35 | PN ---
Progress Note, Physician History of Present Illness: AWAKE, ALERT NO COMPLAINTS OFFERRED DENIES CHEST PAIN/ COUGH BREATHING NON-LABORED TEMPS DOWN AFEBRILE WBC 11.8 CXR IMPROVED - Current Medication List Current Medications: Active Medications Albuterol/Ipratropium (Duoneb -) 1 amp NEB Q4H PRN PRN Reason: SHORTNESS OF BREATH Albuterol/Ipratropium (Duoneb -) 1 amp NEB RQ4H [facility] Last Admin: 08/10/19 04:56 Dose: 1 amp Atorvastatin Calcium (Lipitor -) 10 mg PO HS [facility] Last Admin: 08/09/19 21:13 Dose: Not Given Chlorhexidine Gluconate (Hibiclens For Decolonization -) 1 applic TP HS [facility] Last Admin: 08/09/19 21:43 Dose: 1 applic Cholecalciferol (Vitamin D3 -) 2,000 unit PO DAILY [facility] Clopidogrel Bisulfate (Plavix -) 75 mg PO DAILY [facility] Docusate Sodium (Colace -) 100 mg PO DAILY [facility] Enoxaparin Sodium (Lovenox -) 40 mg SQ DAILY [facility] Ferrous Sulfate (Feosol -) 325 mg PO DAILY [facility] Piperacillin Sod/Tazobactam (Sod 3.375 gm/ Dextrose) 50 mls @ 100 mls/hr IVPB Q8H-IV [facility]; Protocol Last Admin: 08/10/19 01:12 Dose: 100 mls/hr Potassium Chloride/Dextrose/Sod Cl (D5-1/2ns+20 Meq Kcl -) 20 meq in 1,000 mls @ 42 mls/hr IV ASDIR [facility] Last Admin: 08/09/19 17:19 Dose: 42 mls/hr Vancomycin HCl (Vancomycin (Pre-Docked)) 1,000 mg in 250 mls @ 166.667 mls/hr IVPB DAILY@1700 [facility]; Protocol Last Admin: 08/09/19 17:20 Dose: 166.667 mls/hr Losartan Potassium (Cozaar -) 50 mg PO DAILY [facility] Metoprolol Succinate (Toprol Xl -) 50 mg PO DAILY [facility] Multivitamins (Total B With C -) 1 each PO DAILY [facility] Multivitamins/Minerals/Vitamin C (Tab-A-Vit -) 1 tab PO DAILY [facility] Mupirocin (Bactroban Ointment (For Decolonization) -) 1 applic NS BID [facility] Stop: 08/14/19 09:59 Last Admin: 08/09/19 21:45 Dose: 1 applic Polyethylene Glycol (Miralax (For Daily Use) -) 17 gm PO DAILY PRN PRN Reason: CONSTIPATION Potassium Chloride (K-Dur -) 10 meq PO DAILY [facility] Ranitidine HCl (Zantac -) 150 mg PO DAILY [facility] Sertraline HCl (Zoloft -) 100 mg PO DAILY [facility] Tramadol HCl (Ultram -) 50 mg PO Q12H PRN PRN Reason: PAIN LEVEL 7 - 10 - Objective Vital Signs: Vital Signs Temperature 98.2 F 08/10/19 06:38 Pulse Rate 79 08/10/19 09:25 Respiratory Rate 20 08/10/19 09:25 Blood Pressure 160/80 08/10/19 09:25 O2 Sat by Pulse Oximetry (%) 100 08/10/19 04:57 Constitutional: Yes: No Distress Cardiovascular: Yes: Regular Rate and Rhythm, S1, S2 Respiratory: Yes: Other (CREPITATIONS L BASE) Gastrointestinal: Yes: Normal Bowel Sounds, Soft. No: Tenderness Edema: No Labs: CBC, BMP 08/10/19 05:45 08/10/19 05:45 Assessment/Plan PROBABLE ASP PNEUMONIA CHF CVA CONTINUE EMPIRIC ZOSYN/ VANCOMYCIN
[2019-08-10] MEDS: DOCUSATE SODIUM 100 MG CAPSULE (FP) PO SCH (11:00)
[2019-08-10] MEDS: FERROUS SO4 325 MG TABLET (FP) PO SCH (11:05)
[2019-08-10] MEDS: POTASSIUM CHLORIDE TABS 10 MEQ TABLET.ER (FP) PO SCH (11:05)
[2019-08-10] MEDS: LOSARTAN POTASSIUM 50 MG TABLET (FP) PO SCH (11:05)
[2019-08-10] MEDS: VITAMIN B COMPLEX W/C COMBO TABLET (FP) PO SCH (11:06)
[2019-08-10] MEDS: CHOLECALCIFEROL (VIT D3) 1,000 UNIT (25 MCG) TABLET PO SCH (11:06)
[2019-08-10] MEDS: ENOXAPARIN NA (PORCINE) 40 MG/0.4 ML DISP.SYRIN SQ SCH (11:06)
[2019-08-10] MEDS: MULTIVITAMINS (DAILY MVI) TABLET (FP) PO SCH (11:06)
[2019-08-10] MEDS: CLOPIDOGREL BISULFATE 75 MG TABLET (FP) PO SCH (11:06)
[2019-08-10] MEDS: RANITIDINE HCL 150 MG TABLET (FP) PO SCH (11:07)
[2019-08-10] MEDS: SERTRALINE HCL 50 MG TABLET (FP) PO SCH (11:07)
[2019-08-10] MEDS: MUPIROCIN 2% TOPICAL OINTMENT FOR DECOLONIZATION NS SCH ×2 (12:04→21:03)
--- NOTE | 2019-08-10 13:35 | PN ---
Physical Exam: SUBJECTIVE: Patient seen and examined in ICU, feeling better, ROS limited given dementia but no complaints. OBJECTIVE: Vital Signs Period Temp Pulse Resp BP Sys/Herrmann Pulse Ox Last 24 Hr 98.2 F-100.3 F 50-79 20-26 140-187/72-94 100-100 Intake & Output 08/07/19 08/08/19 08/09/19 08/10/19 23:59 23:59 23:59 23:59 Intake Total 300 1225 1525 533 Output Total 800 Balance 300 1225 725 533 Weight 132 lb 9.6 oz general: improved respiratory effort, off bipap Neck: soft, supple, improved neck vein distension Chest; scattered rhonchi bilaterally, occasional wheezing, pos air entry Abdomen:soft, Nt, ND Extremities: no edema HEENT: PERRL EOMi Laboratory Results - last 24 hr 08/09/19 08/10/19 08/10/19 09:24 05:45 05:45 WBC 11.8 H RBC 4.09 Hgb 11.0 L Hct 33.7 L MCV 82.6 MCH 27.0 MCHC 32.7 RDW 18.8 H Plt Count 211 D MPV 8.2 Absolute Neuts (auto) 10.6 H Neutrophils % 90.3 H Neutrophils % (Manual) 94.9 H Band Neutrophils % 0.0 Lymphocytes % 3.9 L D Lymphocytes % (Manual) 4.1 L Monocytes % 5.6 Monocytes % (Manual) 1 L Eosinophils % 0.0 Eosinophils % (Manual) 0.0 Basophils % 0.2 Basophils % (Manual) 0.0 Myelocytes % (Man) 0 Promyelocytes % (Man) 0 Blast Cells % (Manual) 0 Nucleated RBC % 0 Metamyelocytes 0 Platelet Estimate Decreased Poikilocytosis 1+ Anisocytosis 3+ Ovalocytes 1+ Anticoagulation Therapy Puncture Site ABG pH ABG pCO2 at Pt Temp ABG pO2 at Pt Temp ABG HCO3 ABG O2 Sat (Measured) ABG O2 Content ABG Base Excess Gael Test O2 Delivery Device Oxygen Flow Rate Vent Mode Vent Rate Mechanical Rate PEEP Pressure Support Vent Sodium 146 H Potassium 3.7 Chloride 109 H Carbon Dioxide 28 Anion Gap 9 BUN 26.0 H Creatinine 1.1 Est GFR (CKD-EPI)AfAm 74.65 Est GFR (CKD-EPI)NonAf 64.41 Random Glucose 108 H Lactic Acid Calcium 9.1 Phosphorus 3.3 Magnesium 2.2 Total Bilirubin 0.8 AST 47 H ALT 36 Alkaline Phosphatase 71 Total Protein 6.9 Albumin 2.8 L 08/10/19 08/10/19 06:30 12:15 WBC RBC Hgb Hct MCV MCH MCHC RDW Plt Count MPV Absolute Neuts (auto) Neutrophils % Neutrophils % (Manual) Band Neutrophils % Lymphocytes % Lymphocytes % (Manual) Monocytes % Monocytes % (Manual) Eosinophils % Eosinophils % (Manual) Basophils % Basophils % (Manual) Myelocytes % (Man) Promyelocytes % (Man) Blast Cells % (Manual) Nucleated RBC % Metamyelocytes Platelet Estimate Poikilocytosis Anisocytosis Ovalocytes Anticoagulation Therapy No Result Required. Puncture Site Right radial ABG pH 7.52 H ABG pCO2 at Pt Temp 30.1 L ABG pO2 at Pt Temp 167 H ABG HCO3 24.2 ABG O2 Sat (Measured) 99.7 H ABG O2 Content 15.0 ABG Base Excess 2.1 H Gael Test Positive O2 Delivery Device Bipap Oxygen Flow Rate 40% Vent Mode No Result Required. Vent Rate 12 Mechanical Rate No Result Required. PEEP 8.0 Pressure Support Vent No Result Required. Sodium Potassium Chloride Carbon Dioxide Anion Gap BUN Creatinine Est GFR (CKD-EPI)AfAm Est GFR (CKD-EPI)NonAf Random Glucose Lactic Acid 1.9 Calcium Phosphorus Magnesium Total Bilirubin AST ALT Alkaline Phosphatase Total Protein Albumin Active Medications Generic Name Dose Route Start Last Admin Trade Name Freq PRN Reason Stop Dose Admin Albuterol/Ipratropium 1 amp 08/09/19 14:11 Duoneb - NEB Q4H PRN SHORTNESS OF BREATH Albuterol/Ipratropium 1 amp 08/09/19 16:00 08/10/19 08:05 Duoneb - NEB 1 amp RQ4H PADMINI Administration Atorvastatin Calcium 10 mg 08/09/19 22:00 08/09/19 21:13 Lipitor - PO Not Given HS PADMINI Chlorhexidine Gluconate 1 applic 08/09/19 22:00 08/09/19 21:43 Hibiclens For Decolonization - TP 1 applic HS PADMINI Administration Cholecalciferol 2,000 unit 08/10/19 10:00 08/10/19 11:06 Vitamin D3 - PO 2,000 unit DAILY PADMINI Administration Clopidogrel Bisulfate 75 mg 08/10/19 10:00 08/10/19 11:06 Plavix - PO 75 mg DAILY PADMINI Administration Docusate Sodium 100 mg 08/10/19 10:00 08/10/19 11:00 Colace - PO 100 mg DAILY PADMINI Administration Enoxaparin Sodium 40 mg 08/10/19 10:00 08/10/19 11:06 Lovenox - SQ 40 mg DAILY PADMINI Administration Ferrous Sulfate 325 mg 08/10/19 10:00 08/10/19 11:05 Feosol - PO 325 mg DAILY PADMINI Administration Piperacillin Sod/Tazobactam 50 mls @ 100 mls/hr 08/09/19 18:00 08/10/19 11:07 Sod 3.375 gm/ Dextrose IVPB 100 mls/hr Q8H-IV PADMINI Administration Protocol Vancomycin HCl 1,000 mg in 250 mls @ 166.667 mls/hr 08/09/19 17:00 08/09/19 17:20 Vancomycin (Pre-Docked) IVPB 166.667 mls/hr DAILY@1700 PADMINI Administration Protocol Dextrose 1,000 mls @ 42 mls/hr 08/10/19 13:30 D5w - IV .[id number] PADMINI Losartan Potassium 50 mg 08/10/19 10:00 08/10/19 11:05 Cozaar - PO 50 mg DAILY PADMINI Administration Metoprolol Succinate 50 mg 08/10/19 10:00 08/10/19 11:06 Toprol Xl - PO 50 mg DAILY PADMINI Administration Multivitamins 1 each 08/10/19 10:00 08/10/19 11:06 Total B With C - PO 1 each DAILY PADMINI Administration Multivitamins/Minerals/Vitamin C 1 tab 08/10/19 10:00 08/10/19 11:06 Tab-A-Vit - PO 1 tab DAILY PADMINI Administration Mupirocin 1 applic 08/09/19 10:00 08/10/19 12:04 Bactroban Ointment (For Decolonization) - NS 08/14/19 09:59 1 applic BID PADMINI Administration Polyethylene Glycol 17 gm 08/09/19 14:11 Miralax (For Daily Use) - PO DAILY PRN CONSTIPATION Potassium Chloride 10 meq 08/10/19 10:00 08/10/19 11:05 K-Dur - PO 10 meq DAILY PADMINI Administration Ranitidine HCl 150 mg 08/10/19 10:00 08/10/19 11:07 Zantac - PO 150 mg DAILY PADMINI Administration Sertraline HCl 100 mg 08/10/19 10:00 08/10/19 11:07 Zoloft - PO 100 mg DAILY PADMINI Administration Tramadol HCl 50 mg 08/09/19 14:11 Ultram - PO Q12H PRN PAIN LEVEL 7 - 10 Microbiology 08/09/19 12:43 Blood - Peripheral Venous Blood Culture - Preliminary NO GROWTH OBTAINED AFTER 24 HOURS, INCUBATION TO CONTINUE FOR 4 DAYS. 08/09/19 12:30 Blood - Peripheral Venous Blood Culture - Preliminary NO GROWTH OBTAINED AFTER 24 HOURS, INCUBATION TO CONTINUE FOR 4 DAYS. 08/09/19 12:00 Urine - Urine Clean Catch Urine Culture - Final NO GROWTH OBTAINED 08/07/19 00:35 Blood - Peripheral Venous Blood Culture - Preliminary NO GROWTH OBTAINED AFTER 72 HOURS, INCUBATION TO CONTINUE FOR 2 DAYS. 08/07/19 00:35 Blood - Peripheral Venous Blood Culture - Preliminary NO GROWTH OBTAINED AFTER 72 HOURS, INCUBATION TO CONTINUE FOR 2 DAYS. 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 NPO today, bedside swallow eval in 24 hours if continues to improve. Change to D5w at 42 ml/hr. ID input noted. Zosyn/Azithromycin day 4, urine PNA studies/Cultures neg so far. Aspiration precautions. Monitor Na levels. Speech/swallow input noted. reassess in 24-48 hours. 2D echo noted. Standing and prn nebs. Hold off on steroids given improvement. Replete K/Phos prn. Metoprolol/losartan as hemodynamics tolerate. DVTPPX heparin Dispo total critical care time spent 36 min. Continue to address goals of care with patient and family. Agree with transfer out of ICU. Discussed with Dr. Dos Santos. Visit type - Emergency Visit Emergency Visit: Yes ED Registration Date: 08/07/19 Care time: The patient presented to the Emergency Department on the above date and was hospitalized for further evaluation of their emergent condition. - New Patient This patient is new to me today: No - Critical Care Critical Care patient: Yes Total Critical Care Time (in minutes): 36 Critical Care Statement: The care of this patient involved high complexity decision making to prevent further life threatening deterioration of the patient 's condition and/or to evaluate & treat vital organ system(s) failure or risk of failure.
[2019-08-10] MEDS: DEXTROSE 5%-WATER - 1,000 ML IV SCH (15:00)
[2019-08-10] MEDS: VANCOMYCIN 1 GRAM (PRE-DOCKED) 1,000 MG/250 ML BAG IVPB SCH (17:18)
[2019-08-10] MEDS: CHLORHEXIDINE GLUCONATE 4% CLEANSER FOR DECOLONIZATION TP SCH (21:03)
[2019-08-10] MEDS: ATORVASTATIN CA 10 MG TABLET (FP) PO SCH (21:08)
[2019-08-11] MEDS: ALBUTEROL SO4 2.5/IPRATROPIUM 0.5 INH SOL 3 ML VIAL.NEB. NEB SCH ×6 (00:31→21:03)
[2019-08-11] MEDS ORDERED: PIPERACILLIN/TAZOBACTAM 3.375 GM VIAL IVPB ONE ×3 (00:48→16:33)
[2019-08-11] MEDS ORDERED: DEXTROSE 5%-WATER - 50 ML IVPB ONE ×3 (00:48→16:33)
[2019-08-11] MEDS: PIPERACILLIN/TAZOB 3.375 GM 3.375 GM in DEXTROSE 5%-WATER - 50 ML IVPB SCH ×3 (01:21→17:41)
[2019-08-11 06:46] LABS: BASO % 0.3 % (0-2.0); EOS % 0.1 % (0-4.5); HEMATOCRIT 31.7 % (35.4-49); HEMOGLOBIN 10.6 GM/dL (11.7-16.9); LYMPH % 5.4 % (8-40); MCH 27.3 pg (25.7-33.7); MCHC 33.4 g/dl (32.0-35.9); MEAN CELL VOLUME 81.9 fl (80-96); MEAN PLT VOLUME 8.2 fl (7.5-11.1); MONO % 5.3 % (3.8-10.2); NEUT % 88.9 % (42.8-82.8); PLATELET COUNT 220 K/MM3 (134-434); RBC 3.87 M/mm3 (4.00-5.60); RDW 19.2 % (11.9-15.9); WHITE BLOOD COUNT 9.9 K/mm3 (4.0-10.0)
[2019-08-11 07:07] LABS: ALBUMIN 2.8 g/dl (3.4-5.0); BILIRUBIN,TOTAL 0.6 mg/dL (0.2-1); BLOOD UREA NITROGEN 25.4 mg/dL (7-18); CALCIUM 8.8 mg/dL (8.5-10.1); MAGNESIUM 2.3 mg/dL (1.8-2.4); PHOSPHOROUS 2.6 mg/dL (2.5-4.9); TOT PROT 6.6 g/dl (6.4-8.2)
[2019-08-11 07:08] LABS: POTASSIUM 2.6 mmol/L (3.5-5.1)
[2019-08-11] MEDS: KCL 10 MEQ IVPB 10 MEQ/100 ML INFUS.BAG IVPB SCH ×3 (07:58→09:49)
[2019-08-11] MEDS: ENOXAPARIN NA (PORCINE) 40 MG/0.4 ML DISP.SYRIN SQ SCH (09:45)
[2019-08-11] MEDS: RANITIDINE HCL 150 MG TABLET (FP) PO SCH (09:45)
[2019-08-11] MEDS: SERTRALINE HCL 50 MG TABLET (FP) PO SCH (09:46)
[2019-08-11] MEDS: MULTIVITAMINS (DAILY MVI) TABLET (FP) PO SCH (09:46)
[2019-08-11] MEDS: FERROUS SO4 325 MG TABLET (FP) PO SCH (09:46)
[2019-08-11] MEDS: CHOLECALCIFEROL (VIT D3) 1,000 UNIT (25 MCG) TABLET PO SCH (09:46)
[2019-08-11] MEDS: CLOPIDOGREL BISULFATE 75 MG TABLET (FP) PO SCH (09:46)
[2019-08-11] MEDS: DOCUSATE SODIUM 100 MG CAPSULE (FP) PO SCH (09:47)
[2019-08-11] MEDS: LOSARTAN POTASSIUM 50 MG TABLET (FP) PO SCH (09:47)
[2019-08-11] MEDS: POTASSIUM CHLORIDE TABS 10 MEQ TABLET.ER (FP) PO SCH (09:47)
[2019-08-11] MEDS: VITAMIN B COMPLEX W/C COMBO TABLET (FP) PO SCH (09:47)
[2019-08-11] MEDS: MUPIROCIN 2% TOPICAL OINTMENT FOR DECOLONIZATION NS SCH (09:50)
[2019-08-11] MEDS: ACETAMINOPHEN 1000 MG/100 ML VIAL (NON FORMULARY) IVPB PRN (13:28)
[2019-08-11] MEDS: DEXTROSE 5%-WATER - 1,000 ML IV SCH (14:40)
--- NOTE | 2019-08-11 15:05 | PN ---
Progress Note (short form) - Note Progress Note: Resting in NAD on NC O2. Breathing appears comfortable. No acute events overnight. Intake & Output 08/08/19 08/09/19 08/10/19 08/11/19 23:59 23:59 23:59 23:59 Intake Total 1225 1525 583 554 Output Total 800 Balance 1225 725 583 554 Weight 132 lb 4.438 oz Last Vital Signs Temp Pulse Resp BP Pulse Ox 101.4 F H 72 18 157/88 96 08/11/19 11:10 08/11/19 11:10 08/11/19 08:44 08/11/19 08:41 08/11/19 08:44 Active Medications Acetaminophen (Ofirmev Injection -) 1,000 mg IVPB Q6H PRN PRN Reason: FEVER Last Admin: 08/11/19 13:28 Dose: 1,000 mg Albuterol/Ipratropium (Duoneb -) 1 amp NEB Q4H PRN PRN Reason: SHORTNESS OF BREATH Albuterol/Ipratropium (Duoneb -) 1 amp NEB RQ4H PADMINI Last Admin: 08/11/19 13:15 Dose: 1 amp Atorvastatin Calcium (Lipitor -) 10 mg PO HS [facility] Last Admin: 08/10/19 21:08 Dose: 10 mg Chlorhexidine Gluconate (Hibiclens For Decolonization -) 1 applic TP HS [facility] Last Admin: 08/10/19 21:03 Dose: Not Given Cholecalciferol (Vitamin D3 -) 2,000 unit PO DAILY [facility] Last Admin: 08/11/19 09:46 Dose: 2,000 unit Clopidogrel Bisulfate (Plavix -) 75 mg PO DAILY [facility] Last Admin: 08/11/19 09:46 Dose: 75 mg Docusate Sodium (Colace -) 100 mg PO DAILY [facility] Last Admin: 08/11/19 09:47 Dose: 100 mg Enoxaparin Sodium (Lovenox -) 40 mg SQ DAILY PADMINI Last Admin: 08/11/19 09:45 Dose: 40 mg Ferrous Sulfate (Feosol -) 325 mg PO DAILY [facility] Last Admin: 08/11/19 09:46 Dose: 325 mg Piperacillin Sod/Tazobactam (Sod 3.375 gm/ Dextrose) 50 mls @ 100 mls/hr IVPB Q8H-IV PADMINI; Protocol Last Admin: 08/11/19 11:19 Dose: 100 mls/hr Vancomycin HCl (Vancomycin (Pre-Docked)) 1,000 mg in 250 mls @ 166.667 mls/hr IVPB DAILY@1700 PADMINI; Protocol Last Admin: 08/10/19 17:18 Dose: 166.667 mls/hr Dextrose (D5w -) 1,000 mls @ 42 mls/hr IV ASDIR [facility] Last Admin: 08/11/19 14:40 Dose: 42 mls/hr Losartan Potassium (Cozaar -) 50 mg PO DAILY [facility] Last Admin: 08/11/19 09:47 Dose: 50 mg Metoprolol Succinate (Toprol Xl -) 50 mg PO DAILY [facility] Last Admin: 08/11/19 09:46 Dose: 50 mg Multivitamins (Total B With C -) 1 each PO DAILY [facility] Last Admin: 08/11/19 09:47 Dose: 1 each Multivitamins/Minerals/Vitamin C (Tab-A-Vit -) 1 tab PO DAILY [facility] Last Admin: 08/11/19 09:46 Dose: 1 tab Polyethylene Glycol (Miralax (For Daily Use) -) 17 gm PO DAILY PRN PRN Reason: CONSTIPATION Potassium Chloride (K-Dur -) 10 meq PO DAILY [facility] Last Admin: 08/11/19 09:47 Dose: 10 meq Ranitidine HCl (Zantac -) 150 mg PO DAILY [facility] Last Admin: 08/11/19 09:45 Dose: 150 mg Sertraline HCl (Zoloft -) 100 mg PO DAILY [facility] Last Admin: 08/11/19 09:46 Dose: 100 mg GENERAL: Awake and alert on NC O2, confused HEAD: Normal with no signs of trauma. EYES: Pupils equal, round and reactive to light NECK: Normal range of motion, supple without lymphadenopathy, JVD, or masses. LUNGS: Improving bilateral coarse breath sounds HEART: S1S2 ABDOMEN: Soft, nontender, not distended, normoactive bowel sounds, no guarding, no rebound, no masses. No hepatomegaly or splenomegaly. MUSCULOSKELETAL: Normal range of motion at all joints. No bony deformities or tenderness. No CVA tenderness. UPPER EXTREMITIES: warm, No peripheral edema LOWER EXTREMITIES: warm, No calf tenderness. No peripheral edema. NEUROLOGICAL: Awake and alert, confused SKIN: Warm, dry, normal turgor, no rashes or lesions noted. Laboratory Results - last 24 hr 08/11/19 08/11/19 05:25 05:25 WBC 9.9 RBC 3.87 L Hgb 10.6 L Hct 31.7 L MCV 81.9 MCH 27.3 MCHC 33.4 RDW 19.2 H Plt Count 220 MPV 8.2 Absolute Neuts (auto) 8.8 H Neutrophils % 88.9 H Lymphocytes % 5.4 L D Monocytes % 5.3 Eosinophils % 0.1 D Basophils % 0.3 Nucleated RBC % 0 Sodium 149 H Potassium 2.6 L* Chloride 113 H Carbon Dioxide 25 Anion Gap 11 BUN 25.4 H Creatinine 1.0 Est GFR (CKD-EPI)AfAm 83.77 Est GFR (CKD-EPI)NonAf 72.28 Random Glucose 117 H Calcium 8.8 Phosphorus 2.6 Magnesium 2.3 Total Bilirubin 0.6 AST 41 H ALT 43 Alkaline Phosphatase 66 Total Protein 6.6 Albumin 2.8 L ASSESSMENT/PLAN: Acute Respiratory Failure due to ARDS due to possible Aspiration Pneumonitis Basal cell carcinoma Blindness CVA Hypertension Colon CA HPL NC O2 as tolerated NIPPV support as needed Aspiration precautions ABX Per ID Follow cultures DC IVF Follow I & O Replete lytes PO as tolerated Dr Dos Santos
--- NOTE | 2019-08-11 15:06 | PN ---
Physical Exam: SUBJECTIVE: Patient seen and examined, breathing improved, no complaints. OBJECTIVE: Vital Signs Period Temp Pulse Resp BP Sys/Herrmann Pulse Ox Last 24 Hr 97.3 F-101.4 F 66-89 18-24 133-163/85-103 96-96 Intake & Output 08/08/19 08/09/19 08/10/19 08/11/19 23:59 23:59 23:59 23:59 Intake Total 1225 1525 583 554 Output Total 800 Balance 1225 725 583 554 Weight 132 lb 4.438 oz General: sitting in bed, improved tachypnea Chest bilateral scattered rales, improved air entry, no wheezing Abdomen: soft, NT Extremities: no edema Neck: Soft, supple, no JVD noted Psych: awake, co-operative, appropriate Laboratory Results - last 24 hr 08/11/19 08/11/19 05:25 05:25 WBC 9.9 RBC 3.87 L Hgb 10.6 L Hct 31.7 L MCV 81.9 MCH 27.3 MCHC 33.4 RDW 19.2 H Plt Count 220 MPV 8.2 Absolute Neuts (auto) 8.8 H Neutrophils % 88.9 H Lymphocytes % 5.4 L D Monocytes % 5.3 Eosinophils % 0.1 D Basophils % 0.3 Nucleated RBC % 0 Sodium 149 H Potassium 2.6 L* Chloride 113 H Carbon Dioxide 25 Anion Gap 11 BUN 25.4 H Creatinine 1.0 Est GFR (CKD-EPI)AfAm 83.77 Est GFR (CKD-EPI)NonAf 72.28 Random Glucose 117 H Calcium 8.8 Phosphorus 2.6 Magnesium 2.3 Total Bilirubin 0.6 AST 41 H ALT 43 Alkaline Phosphatase 66 Total Protein 6.6 Albumin 2.8 L Active Medications Generic Name Dose Route Start Last Admin Trade Name Freq PRN Reason Stop Dose Admin Acetaminophen 1,000 mg 08/11/19 11:33 08/11/19 13:28 Ofirmev Injection - IVPB 1,000 mg Q6H PRN Administration FEVER Albuterol/Ipratropium 1 amp 08/09/19 14:11 Duoneb - NEB Q4H PRN SHORTNESS OF BREATH Albuterol/Ipratropium 1 amp 08/09/19 16:00 08/11/19 13:15 Duoneb - NEB 1 amp RQ4H PADIMNI Administration Atorvastatin Calcium 10 mg 08/09/19 22:00 08/10/19 21:08 Lipitor - PO 10 mg HS PADMINI Administration Chlorhexidine Gluconate 1 applic 08/09/19 22:00 08/10/19 21:03 Hibiclens For Decolonization - TP Not Given HS [facility] Cholecalciferol 2,000 unit 08/10/19 10:00 08/11/19 09:46 Vitamin D3 - PO 2,000 unit DAILY PADMINI Administration Clopidogrel Bisulfate 75 mg 08/10/19 10:00 08/11/19 09:46 Plavix - PO 75 mg DAILY PADMINI Administration Docusate Sodium 100 mg 08/10/19 10:00 08/11/19 09:47 Colace - PO 100 mg DAILY PADMINI Administration Enoxaparin Sodium 40 mg 08/10/19 10:00 08/11/19 09:45 Lovenox - SQ 40 mg DAILY PADMINI Administration Ferrous Sulfate 325 mg 08/10/19 10:00 08/11/19 09:46 Feosol - PO 325 mg DAILY PADMINI Administration Piperacillin Sod/Tazobactam 50 mls @ 100 mls/hr 08/09/19 18:00 08/11/19 11:19 Sod 3.375 gm/ Dextrose IVPB 100 mls/hr Q8H-IV PADMINI Administration Protocol Vancomycin HCl 1,000 mg in 250 mls @ 166.667 mls/hr 08/09/19 17:00 08/10/19 17:18 Vancomycin (Pre-Docked) IVPB 166.667 mls/hr DAILY@1700 PADMINI Administration Protocol Dextrose 1,000 mls @ 42 mls/hr 08/10/19 13:30 08/11/19 14:40 D5w - IV 42 mls/hr ASDIR PADMINI Administration Losartan Potassium 50 mg 08/10/19 10:00 08/11/19 09:47 Cozaar - PO 50 mg DAILY PADMINI Administration Metoprolol Succinate 50 mg 08/10/19 10:00 08/11/19 09:46 Toprol Xl - PO 50 mg DAILY PADMINI Administration Multivitamins 1 each 08/10/19 10:00 08/11/19 09:47 Total B With C - PO 1 each DAILY PADMINI Administration Multivitamins/Minerals/Vitamin C 1 tab 08/10/19 10:00 08/11/19 09:46 Tab-A-Vit - PO 1 tab DAILY PADMINI Administration Polyethylene Glycol 17 gm 08/09/19 14:11 Miralax (For Daily Use) - PO DAILY PRN CONSTIPATION Potassium Chloride 10 meq 08/10/19 10:00 08/11/19 09:47 K-Dur - PO 10 meq DAILY PADMINI Administration Ranitidine HCl 150 mg 08/10/19 10:00 08/11/19 09:45 Zantac - PO 150 mg DAILY PADMINI Administration Sertraline HCl 100 mg 08/10/19 10:00 08/11/19 09:46 Zoloft - PO 100 mg DAILY PADMINI Administration Microbiology 08/09/19 12:43 Blood - Peripheral Venous Blood Culture - Preliminary NO GROWTH OBTAINED AFTER 48 HOURS, INCUBATION TO CONTINUE FOR 3 DAYS. 08/09/19 12:30 Blood - Peripheral Venous Blood Culture - Preliminary NO GROWTH OBTAINED AFTER 48 HOURS, INCUBATION TO CONTINUE FOR 3 DAYS. 08/07/19 00:35 Blood - Peripheral Venous Blood Culture - Preliminary NO GROWTH OBTAINED AFTER 96 HOURS, INCUBATION TO CONTINUE FOR 1 DAYS. 08/07/19 00:35 Blood - Peripheral Venous Blood Culture - Preliminary NO GROWTH OBTAINED AFTER 96 HOURS, INCUBATION TO CONTINUE FOR 1 DAYS. 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 recurrent fevers, suspect ongoing aspiration. Zosyn/azithromycin day 5, urine PNA studies/Cultures neg so far. Follow up ID input. Failed bedside swallow eval. NPO, dysphagia precautions. Gentle hydration with D5w, monitor respiratory status. Speech/swallow re-eval. Will need to address goals of care including PEG, if ongoing aspiration risk and failure to advance po. Change to D5w at 42 ml/hr. ID input noted. Monitor Na levels. Replete K/cecilia prn. 2D echo noted. Standing and prn nebs. Hold off on steroids given improvement. Metoprolol/losartan as hemodynamics tolerate. DVTPPX heparin Prognosis guarded Dispo pending clinical course, goals of care Discussed with nursing. Visit type - Emergency Visit Emergency Visit: Yes ED Registration Date: 08/07/19 Care time: The patient presented to the Emergency Department on the above date and was hospitalized for further evaluation of their emergent condition. - New Patient This patient is new to me today: No - Critical Care Critical Care patient: No - Discharge Referral Referred to [facility] No
[2019-08-11] MEDS: VANCOMYCIN 1 GRAM (PRE-DOCKED) 1,000 MG/250 ML BAG IVPB SCH (16:38)
[2019-08-11] MEDS: POTASSIUM CHLORIDE 20 MEQ in DEXTROSE 5%-WATER - 1,000 ML IVPB SCH (17:43)
[2019-08-11] MEDS: ATORVASTATIN CA 10 MG TABLET (FP) PO SCH (22:11)
[2019-08-11] MEDS: CHLORHEXIDINE GLUCONATE 4% CLEANSER FOR DECOLONIZATION TP SCH (22:12)
[2019-08-12] MEDS: ALBUTEROL SO4 2.5/IPRATROPIUM 0.5 INH SOL 3 ML VIAL.NEB. NEB SCH ×6 (00:22→20:30)
[2019-08-12] MEDS ORDERED: DEXTROSE 5%-WATER - 50 ML IVPB ONE ×3 (01:09→16:05)
[2019-08-12] MEDS ORDERED: PIPERACILLIN/TAZOBACTAM 3.375 GM VIAL IVPB ONE ×3 (01:09→16:05)
[2019-08-12] MEDS: PIPERACILLIN/TAZOB 3.375 GM 3.375 GM in DEXTROSE 5%-WATER - 50 ML IVPB SCH ×3 (01:27→17:45)
[2019-08-12] MEDS: ACETAMINOPHEN 1000 MG/100 ML VIAL (NON FORMULARY) IVPB PRN (03:07)
[2019-08-12] MEDS ORDERED: DEXTROSE 5%-WATER - 1,000 ML IV SCH (05:15)
[2019-08-12 07:00] LABS: BASO % 0.1 % (0-2.0); EOS % 0.1 % (0-4.5); HEMATOCRIT 31.5 % (35.4-49); HEMOGLOBIN 10.4 GM/dL (11.7-16.9); LYMPH % 5.6 % (8-40); MCHC 32.9 g/dl (32.0-35.9); MEAN CELL VOLUME 82.1 fl (80-96); MEAN PLT VOLUME 7.9 fl (7.5-11.1); MONO % 6.8 % (3.8-10.2); NEUT % 87.4 % (42.8-82.8); PLATELET COUNT 218 K/MM3 (134-434); RBC 3.83 M/mm3 (4.00-5.60); RDW 19.3 % (11.9-15.9); WHITE BLOOD COUNT 9.9 K/mm3 (4.0-10.0)
[2019-08-12 07:16] LABS: CALCIUM 8.4 mg/dL (8.5-10.1); MAGNESIUM 2.4 mg/dL (1.8-2.4); PHOSPHOROUS 2.7 mg/dL (2.5-4.9)
[2019-08-12 07:20] LABS: POTASSIUM 2.5 mmol/L (3.5-5.1)
[2019-08-12] MEDS ORDERED: POTASSIUM CHLORIDE TABS 20 MEQ TABLET.ER (FP) PO ONE (09:00)
[2019-08-12] MEDS: ENOXAPARIN NA (PORCINE) 40 MG/0.4 ML DISP.SYRIN SQ SCH (09:33)
[2019-08-12] MEDS: CLOPIDOGREL BISULFATE 75 MG TABLET (FP) PO SCH (09:34)
[2019-08-12] MEDS: FERROUS SO4 325 MG TABLET (FP) PO SCH (09:34)
[2019-08-12] MEDS: DOCUSATE SODIUM 100 MG CAPSULE (FP) PO SCH (09:34)
[2019-08-12] MEDS: SERTRALINE HCL 50 MG TABLET (FP) PO SCH (09:34)
[2019-08-12] MEDS: LOSARTAN POTASSIUM 50 MG TABLET (FP) PO SCH (09:34)
[2019-08-12] MEDS: VITAMIN B COMPLEX W/C COMBO TABLET (FP) PO SCH (09:34)
[2019-08-12] MEDS: MULTIVITAMINS (DAILY MVI) TABLET (FP) PO SCH (09:34)
[2019-08-12] MEDS: RANITIDINE HCL 150 MG TABLET (FP) PO SCH (09:34)
[2019-08-12] MEDS: CHOLECALCIFEROL (VIT D3) 1,000 UNIT (25 MCG) TABLET PO SCH (09:35)
[2019-08-12] MEDS: KCL 10 MEQ IVPB 10 MEQ/100 ML INFUS.BAG IVPB SCH ×3 (10:25→12:42)
--- NOTE | 2019-08-12 11:01 | PN ---
Progress Note, Physician History of Present Illness: PULMONARY AWAKE,ALERT,CONFUSED,COMFORTABLE,-RESP DISTRESS,ON NASAL O2 - Current Medication List Current Medications: Active Medications Acetaminophen (Ofirmev Injection -) 1,000 mg IVPB Q6H PRN PRN Reason: FEVER Last Admin: 08/12/19 03:07 Dose: 1,000 mg Albuterol/Ipratropium (Duoneb -) 1 amp NEB Q4H PRN PRN Reason: SHORTNESS OF BREATH Albuterol/Ipratropium (Duoneb -) 1 amp NEB RQ4H [facility] Last Admin: 08/12/19 07:20 Dose: 1 amp Atorvastatin Calcium (Lipitor -) 10 mg PO HS [facility] Last Admin: 08/11/19 22:11 Dose: 10 mg Chlorhexidine Gluconate (Hibiclens For Decolonization -) 1 applic TP HS [facility] Last Admin: 08/11/19 22:12 Dose: Not Given Cholecalciferol (Vitamin D3 -) 2,000 unit PO DAILY [facility] Last Admin: 08/12/19 09:35 Dose: 2,000 unit Clopidogrel Bisulfate (Plavix -) 75 mg PO DAILY [facility] Last Admin: 08/12/19 09:34 Dose: 75 mg Docusate Sodium (Colace -) 100 mg PO DAILY [facility] Last Admin: 08/12/19 09:34 Dose: 100 mg Enoxaparin Sodium (Lovenox -) 40 mg SQ DAILY [facility] Last Admin: 08/12/19 09:33 Dose: 40 mg Ferrous Sulfate (Feosol -) 325 mg PO DAILY [facility] Last Admin: 08/12/19 09:34 Dose: 325 mg Piperacillin Sod/Tazobactam (Sod 3.375 gm/ Dextrose) 50 mls @ 100 mls/hr IVPB Q8H-IV PADMINI; Protocol Last Admin: 08/12/19 09:33 Dose: 100 mls/hr Vancomycin HCl (Vancomycin (Pre-Docked)) 1,000 mg in 250 mls @ 166.667 mls/hr IVPB DAILY@1700 PADMINI; Protocol Last Admin: 08/11/19 16:38 Dose: 166.667 mls/hr Potassium Chloride 20 meq/ (Dextrose) 1,010 mls @ 42 mls/hr IVPB Q24H [facility] Last Admin: 08/11/19 17:43 Dose: 42 mls/hr Potassium Chloride (Potassium Chloride 10 Meq Premix Ivpb -) 10 meq in 100 mls @ 100 mls/hr IVPB Q60M [facility] Stop: 08/12/19 12:29 Last Admin: 08/12/19 10:25 Dose: 100 mls/hr Losartan Potassium (Cozaar -) 50 mg PO DAILY [facility] Last Admin: 08/12/19 09:34 Dose: 50 mg Metoprolol Succinate (Toprol Xl -) 50 mg PO DAILY [facility] Last Admin: 08/12/19 09:34 Dose: 50 mg Multivitamins (Total B With C -) 1 each PO DAILY [facility] Last Admin: 08/12/19 09:34 Dose: 1 each Multivitamins/Minerals/Vitamin C (Tab-A-Vit -) 1 tab PO DAILY [facility] Last Admin: 08/12/19 09:34 Dose: 1 tab Polyethylene Glycol (Miralax (For Daily Use) -) 17 gm PO DAILY PRN PRN Reason: CONSTIPATION Ranitidine HCl (Zantac -) 150 mg PO DAILY [facility] Last Admin: 08/12/19 09:34 Dose: 150 mg Sertraline HCl (Zoloft -) 100 mg PO DAILY [facility] Last Admin: 08/12/19 09:34 Dose: 100 mg - Objective Vital Signs: Vital Signs Temperature 98.6 F 08/12/19 08:02 Pulse Rate 72 08/12/19 08:02 Respiratory Rate 18 08/12/19 08:05 Blood Pressure 134/82 08/12/19 08:02 O2 Sat by Pulse Oximetry (%) 96 08/12/19 08:05 Constitutional: Yes: Calm, Thin Eyes: Yes: WNL HENT: Yes: WNL Neck: Yes: WNL Cardiovascular: Yes: Regular Rate and Rhythm, S1, S2 Respiratory: Yes: Rhonchi (SCATTERED NYLA RHONCHI) Gastrointestinal: Yes: Normal Bowel Sounds, Soft Extremities: Yes: WNL Edema: No Labs: CBC, BMP 08/12/19 05:25 08/12/19 05:25 Problem List - Problems (1) Aspiration pneumonia Code(s): J69.0 - PNEUMONITIS DUE TO INHALATION OF FOOD AND VOMIT (2) History of CVA (cerebrovascular accident) Code(s): Z86.73 - PRSNL HX OF TIA (TIA), AND CEREB INFRC W/O RESID DEFICITS (3) Pneumonia Code(s): J18.9 - PNEUMONIA, UNSPECIFIED ORGANISM (4) HTN (hypertension) Code(s): I10 - ESSENTIAL (PRIMARY) HYPERTENSION Qualifiers: Hypertension type: essential hypertension (5) Acute respiratory failure Code(s): J96.00 - ACUTE RESPIRATORY FAILURE, UNSP W HYPOXIA OR HYPERCAPNIA Assessment/Plan ASSESSMENT/PLAN: Acute Respiratory Failure due to ARDS due to possible Aspiration Pneumonitis improving Basal cell carcinoma Blindness CVA Hypertension Colon CA HPL NC O2 as tolerated NIPPV support as needed Aspiration precautions ABX Per ID Follow I & O Replete susu OLGUIN
--- NOTE | 2019-08-12 11:27 | PN ---
Physical Exam: SUBJECTIVE: Patient seen and examined at bedside. No acute events. Pt suffers from dementia and does not recall recent acute worsening, but feels well at this time. OBJECTIVE: Vital Signs Period Temp Pulse Resp BP Sys/Herrmann Pulse Ox Last 24 Hr 98.6 F-100.3 F 70-80 18-20 130-175/75-110 96-99 Gen: NAD, AAOx1 HEENT: NCAT, EOMI Neck: supple, no jvd Cardio: rrr, ns1s2, no mrg Pulm: cta b/l Abd: soft, nontender, nondistended Laboratory Results - last 24 hr 08/12/19 08/12/19 05:25 05:25 WBC 9.9 RBC 3.83 L Hgb 10.4 L Hct 31.5 L MCV 82.1 MCH 27.0 MCHC 32.9 RDW 19.3 H Plt Count 218 MPV 7.9 Absolute Neuts (auto) 8.7 H Neutrophils % 87.4 H Lymphocytes % 5.6 L Monocytes % 6.8 Eosinophils % 0.1 Basophils % 0.1 Nucleated RBC % 0 Sodium 147 H Potassium 2.5 L* Chloride 113 H Carbon Dioxide 27 Anion Gap 7 L BUN 24.0 H Creatinine 1.0 Est GFR (CKD-EPI)AfAm 83.77 Est GFR (CKD-EPI)NonAf 72.28 Random Glucose 125 H Calcium 8.4 L Phosphorus 2.7 Magnesium 2.4 Active Medications Generic Name Dose Route Start Last Admin Trade Name Freq PRN Reason Stop Dose Admin Acetaminophen 1,000 mg 08/11/19 11:33 08/12/19 03:07 Ofirmev Injection - IVPB 1,000 mg Q6H PRN Administration FEVER Albuterol/Ipratropium 1 amp 08/09/19 14:11 Duoneb - NEB Q4H PRN SHORTNESS OF BREATH Albuterol/Ipratropium 1 amp 08/09/19 16:00 08/12/19 11:13 Duoneb - NEB 1 amp RQ4H PADMINI Administration Atorvastatin Calcium 10 mg 08/09/19 22:00 08/11/19 22:11 Lipitor - PO 10 mg HS PADMINI Administration Chlorhexidine Gluconate 1 applic 08/09/19 22:00 08/11/19 22:12 Hibiclens For Decolonization - TP Not Given HS PADMINI Cholecalciferol 2,000 unit 08/10/19 10:00 08/12/19 09:35 Vitamin D3 - PO 2,000 unit DAILY APDMINI Administration Clopidogrel Bisulfate 75 mg 08/10/19 10:00 08/12/19 09:34 Plavix - PO 75 mg DAILY PADMINI Administration Docusate Sodium 100 mg 08/10/19 10:00 08/12/19 09:34 Colace - PO 100 mg DAILY PADMINI Administration Enoxaparin Sodium 40 mg 08/10/19 10:00 08/12/19 09:33 Lovenox - SQ 40 mg DAILY PADMINI Administration Ferrous Sulfate 325 mg 08/10/19 10:00 08/12/19 09:34 Feosol - PO 325 mg DAILY PADMINI Administration Piperacillin Sod/Tazobactam 50 mls @ 100 mls/hr 08/09/19 18:00 08/12/19 09:33 Sod 3.375 gm/ Dextrose IVPB 100 mls/hr Q8H-IV PADMINI Administration Protocol Vancomycin HCl 1,000 mg in 250 mls @ 166.667 mls/hr 08/09/19 17:00 08/11/19 16:38 Vancomycin (Pre-Docked) IVPB 166.667 mls/hr DAILY@1700 PAD[facility]I Administration Protocol Potassium Chloride 20 meq/ 1,010 mls @ 42 mls/hr 08/11/19 16:00 08/11/19 17: 43 Dextrose IVPB 42 mls/hr Q24H PADMINI Administration Potassium Chloride 10 meq in 100 mls @ 100 mls/hr 08/12/19 09:30 08/12/19 10: 25 Potassium Chloride 10 Meq Premix Ivpb - IVPB 08/12/19 12:29 100 mls/hr Q60M PADMINI Administration Losartan Potassium 50 mg 08/10/19 10:00 08/12/19 09:34 Cozaar - PO 50 mg DAILY PADMINI Administration Metoprolol Succinate 50 mg 08/10/19 10:00 08/12/19 09:34 Toprol Xl - PO 50 mg DAILY PADMINI Administration Multivitamins 1 each 08/10/19 10:00 08/12/19 09:34 Total B With C - PO 1 each DAILY PADMINI Administration Multivitamins/Minerals/Vitamin C 1 tab 08/10/19 10:00 08/12/19 09:34 Tab-A-Vit - PO 1 tab DAILY PADMINI Administration Polyethylene Glycol 17 gm 08/09/19 14:11 Miralax (For Daily Use) - PO DAILY PRN CONSTIPATION Ranitidine HCl 150 mg 08/10/19 10:00 08/12/19 09:34 Zantac - PO 150 mg DAILY PADMINI Administration Sertraline HCl 100 mg 08/10/19 10:00 08/12/19 09:34 Zoloft - PO 100 mg DAILY PADMINI Administration ASSESSMENT/PLAN: Pt is a 78 year old male with a past medical history of basal cell carcinoma, blindness, stroke, hypertension, colon CA, HLD who is admitted for shortness of breath likely secondary to pneumonia. Shortness of Breath - likely secondary to aspiration pneumonia - zosyn/azithromycin - BCx, sputum cultures, Urine Ag pending, neg so far - O2 as needed, titrate down as tolerated - CTA neg for PE - lactic acidosis, continue fluids - echocardiogram grossly normal -PT -MBS done, Speech and swallow recs dysphagia puree w/ sips honey thick liquid #Hypokalemia -Unknown etiology -Mg wnl -no hist profoundly poor po intake -not on lasix -urine lytes -replete prn Hypertension - Metoprolol Succinate, Losartan Hyperlipidemia - Atorvastatin Visit type - Emergency Visit Emergency Visit: No - New Patient This patient is new to me today: No - Critical Care Critical Care patient: No ATTENDING PHYSICIAN STATEMENT I saw and evaluated the patient. I reviewed the resident's note and discussed the case with the resident. I agree with the resident's findings and plan as documented. SUBJECTIVE: OBJECTIVE: ASSESSMENT AND PLAN:
--- NOTE | 2019-08-12 11:44 | PN ---
Teaching Attending Note Name of Resident: Arslan Hilario ATTENDING PHYSICIAN STATEMENT I saw and evaluated the patient. I reviewed the resident's note and discussed the case with the resident. I agree with the resident's findings and plan as documented with exceptions below. SUBJECTIVE: Patient seen and examined, awake, breathing better, no complaints. OBJECTIVE: Vital Signs Period Temp Pulse Resp BP Sys/Herrmann Pulse Ox Last 24 Hr 98.6 F-100.3 F 70-80 18-20 130-175/75-110 96-99 Intake & Output 08/09/19 08/10/19 08/11/19 08/12/19 23:59 23:59 23:59 23:59 Intake Total 9709 121 9647 1070 Output Total 800 Balance 024 171 3447 1070 Weight 132 lb 4.438 oz General: sitting in bed, no tachypnea, breathing better, no acute distress Chest decreased bilateral scattered rales, improved air entry, no wheezing Abdomen: soft, NT Extremities: no edema Neck: Soft, supple, no JVD noted Psych: awake, co-operative, appropriate Home Medications Medication Instructions Recorded Atorvastatin Ca [Lipitor] 10 mg PO HS 08/07/19 B1/B2/Niacin/B12/Protease 1 each PO DAILY 08/07/19 [B-Complex with B-12 Tablet] Chlorpromazine HCl 25 mg PO DAILY 08/07/19 Cholecalciferol (Vitamin D3) 2,000 unit PO DAILY 08/07/19 [Vitamin D] Clopidogrel Bisulfate [Plavix -] 75 mg PO DAILY 08/07/19 Docusate Sodium [Colace] 100 mg PO DAILY 08/07/19 Famotidine [Pepcid] 40 mg PO DAILY 08/07/19 Ferrous Sulfate 325 mg PO DAILY 08/07/19 Losartan Potassium [Cozaar -] 50 mg PO DAILY 08/07/19 Metoprolol Succinate [Toprol Xl] 50 mg PO DAILY 08/07/19 Multivitamin [One-Daily 1 each PO DAILY 08/07/19 Multi-Vitamin] Polyethylene Glycol 3350 [Miralax 17 gm PO PRN 08/07/19 (For Daily Use) -] Potassium Chloride 10 meq PO DAILY 08/07/19 Sertraline HCl [Zoloft] 100 mg PO DAILY 08/07/19 Tramadol HCl [Ultram] 50 mg PO BID 08/07/19 Active Medications Acetaminophen (Ofirmev Injection -) 1,000 mg IVPB Q6H PRN PRN Reason: FEVER Last Admin: 08/12/19 03:07 Dose: 1,000 mg Albuterol/Ipratropium (Duoneb -) 1 amp NEB Q4H PRN PRN Reason: SHORTNESS OF BREATH Albuterol/Ipratropium (Duoneb -) 1 amp NEB RQ4H [facility] Last Admin: 08/12/19 11:13 Dose: 1 amp Atorvastatin Calcium (Lipitor -) 10 mg PO HS [facility] Last Admin: 08/11/19 22:11 Dose: 10 mg Chlorhexidine Gluconate (Hibiclens For Decolonization -) 1 applic TP HS [facility] Last Admin: 08/11/19 22:12 Dose: Not Given Cholecalciferol (Vitamin D3 -) 2,000 unit PO DAILY [facility] Last Admin: 08/12/19 09:35 Dose: 2,000 unit Clopidogrel Bisulfate (Plavix -) 75 mg PO DAILY [facility] Last Admin: 08/12/19 09:34 Dose: 75 mg Docusate Sodium (Colace -) 100 mg PO DAILY [facility] Last Admin: 08/12/19 09:34 Dose: 100 mg Enoxaparin Sodium (Lovenox -) 40 mg SQ DAILY [facility] Last Admin: 08/12/19 09:33 Dose: 40 mg Ferrous Sulfate (Feosol -) 325 mg PO DAILY [facility] Last Admin: 08/12/19 09:34 Dose: 325 mg Piperacillin Sod/Tazobactam (Sod 3.375 gm/ Dextrose) 50 mls @ 100 mls/hr IVPB Q8H-IV PADMINI; Protocol Last Admin: 08/12/19 09:33 Dose: 100 mls/hr Vancomycin HCl (Vancomycin (Pre-Docked)) 1,000 mg in 250 mls @ 166.667 mls/hr IVPB DAILY@1700 PAD[facility]I; Protocol Last Admin: 08/11/19 16:38 Dose: 166.667 mls/hr Potassium Chloride 20 meq/ (Dextrose) 1,010 mls @ 42 mls/hr IVPB Q24H P[facility] Last Admin: 08/11/19 17:43 Dose: 42 mls/hr Potassium Chloride (Potassium Chloride 10 Meq Premix Ivpb -) 10 meq in 100 mls @ 100 mls/hr IVPB Q60M [facility] Stop: 08/12/19 12:29 Last Admin: 08/12/19 10:25 Dose: 100 mls/hr Losartan Potassium (Cozaar -) 50 mg PO DAILY [facility] Last Admin: 08/12/19 09:34 Dose: 50 mg Metoprolol Succinate (Toprol Xl -) 50 mg PO DAILY [facility] Last Admin: 08/12/19 09:34 Dose: 50 mg Multivitamins (Total B With C -) 1 each PO DAILY [facility] Last Admin: 08/12/19 09:34 Dose: 1 each Multivitamins/Minerals/Vitamin C (Tab-A-Vit -) 1 tab PO DAILY [facility] Last Admin: 08/12/19 09:34 Dose: 1 tab Polyethylene Glycol (Miralax (For Daily Use) -) 17 gm PO DAILY PRN PRN Reason: CONSTIPATION Ranitidine HCl (Zantac -) 150 mg PO DAILY [facility] Last Admin: 08/12/19 09:34 Dose: 150 mg Sertraline HCl (Zoloft -) 100 mg PO DAILY [facility] Last Admin: 08/12/19 09:34 Dose: 100 mg Laboratory Results - last 24 hr 08/12/19 08/12/19 05:25 05:25 WBC 9.9 RBC 3.83 L Hgb 10.4 L Hct 31.5 L MCV 82.1 MCH 27.0 MCHC 32.9 RDW 19.3 H Plt Count 218 MPV 7.9 Absolute Neuts (auto) 8.7 H Neutrophils % 87.4 H Lymphocytes % 5.6 L Monocytes % 6.8 Eosinophils % 0.1 Basophils % 0.1 Nucleated RBC % 0 Sodium 147 H Potassium 2.5 L* Chloride 113 H Carbon Dioxide 27 Anion Gap 7 L BUN 24.0 H Creatinine 1.0 Est GFR (CKD-EPI)AfAm 83.77 Est GFR (CKD-EPI)NonAf 72.28 Random Glucose 125 H Calcium 8.4 L Phosphorus 2.7 Magnesium 2.4 Microbiology 08/07/19 00:35 Blood - Peripheral Venous Blood Culture - Final NO GROWTH AFTER 5 DAYS INCUBATION 08/07/19 00:35 Blood - Peripheral Venous Blood Culture - Final NO GROWTH AFTER 5 DAYS INCUBATION 08/09/19 12:43 Blood - Peripheral Venous Blood Culture - Preliminary NO GROWTH OBTAINED AFTER 48 HOURS, INCUBATION TO CONTINUE FOR 3 DAYS. 08/09/19 12:30 Blood - Peripheral Venous Blood Culture - Preliminary NO GROWTH OBTAINED AFTER 48 HOURS, INCUBATION TO CONTINUE FOR 3 DAYS. 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 Cultures neg so far. CXR better. Cleared bedside swallow eval, dysphagia pureed diet with honey thick. gentle D5w, Na improved. Follow up repeat speech/swallow eval. Aspiration precautions. Bipap prn. Palliative care input to address goals of care. Replete K aggressively. 2D echo noted. Standing and prn nebs. Hold off on steroids given improvement. Metoprolol/losartan as hemodynamics tolerate. DVTPPX heparin Prognosis guarded Dispo pending clinical course, goals of care Discussed with nursing.
--- NOTE | 2019-08-12 14:35 | PN ---
Progress Note, [employer] - Note Progress Note: Selected Entries 08/08/19 08/08/19 08/08/19 06:16 10:00 10:29 Breakfast 75% Lunch Supper Temperature 97.8 F 98.2 F 08/08/19 08/08/19 08/08/19 15:04 18:00 22:00 Breakfast Lunch 75% Supper Temperature 98.9 F 99 F 98.9 F 08/08/19 08/09/19 08/09/19 23:19 06:15 10:00 Breakfast Lunch Supper 75% Temperature 98.1 F 98.0 F 08/09/19 08/09/19 08/11/19 11:15 13:26 02:00 Breakfast NPO Lunch NPO Supper Temperature 101.3 F H 98.6 F 08/11/19 08/11/19 08/11/19 06:00 08:41 11:10 Breakfast Lunch Supper Temperature 97.5 F L 99.0 F 101.4 F H 08/11/19 08/11/19 08/11/19 15:37 17:16 18:00 Breakfast Lunch Supper 100% Temperature 98.9 F 100.0 F H 100.0 F H 08/11/19 08/12/19 08/12/19 22:00 02:00 08:02 Breakfast 100% Lunch Supper Temperature 98.9 F 100.3 F H 98.6 F 08/12/19 10:26 Breakfast 100% Lunch Supper Temperature Laboratory Tests 08/09/19 08/10/19 08/11/19 09:24 05:45 05:25 WBC 10.3 H 11.8 H 9.9 08/12/19 05:25 WBC 9.9 Pt reportedly had pureed food with honey thick liquid, well tolerated, good intake. No swallow difficulty with modified diet.
--- NOTE | 2019-08-12 15:33 | PN ---
Progress Note (short form) - Note Progress Note: off oxygen, comfortable Vital Signs Period Temp Pulse Resp BP Sys/Herrmann Pulse Ox Last 24 Hr 98.1 F-100.3 F 70-80 17-20 130-175/75-110 96-99 cor-rrr llungs decreased bs at bases abd soft,nt ext no edema CBC, BMP 08/12/19 05:25 08/12/19 05:25 Microbiology 08/09/19 12:30 Blood - Peripheral Venous Blood Culture - Preliminary NO GROWTH OBTAINED AFTER 72 HOURS, INCUBATION TO CONTINUE FOR 2 DAYS. 08/09/19 12:43 Blood - Peripheral Venous Blood Culture - Preliminary NO GROWTH OBTAINED AFTER 72 HOURS, INCUBATION TO CONTINUE FOR 2 DAYS. 08/07/19 00:35 Blood - Peripheral Venous Blood Culture - Final NO GROWTH AFTER 5 DAYS INCUBATION 08/07/19 00:35 Blood - Peripheral Venous Blood Culture - Final NO GROWTH AFTER 5 DAYS INCUBATION 08/09/19 12:00 Urine - Urine Clean Catch Urine Culture - Final NO GROWTH OBTAINED 08/07/19 01:05 Urine - Urine Clean Catch Urine Culture - Final NO GROWTH OBTAINED 08/07/19 16:30 Urine - Urine Clean Catch Legionella Antigen - Final 08/07/19 16:30 Urine - Urine Clean Catch Streptococcus pneumoniae Antigen ( M - Final MBS with silent aspiration cxray/chest ct with bilateral patchy infiltrates cxray bilateral infiltrates- improved Current Medications Acetaminophen (Ofirmev Injection -) 1,000 mg IVPB Q6H PRN PRN Reason: FEVER Last Admin: 08/12/19 03:07 Dose: 1,000 mg Albuterol/Ipratropium (Duoneb -) 1 amp NEB Q4H PRN PRN Reason: SHORTNESS OF BREATH Albuterol/Ipratropium (Duoneb -) 1 amp NEB RQ4H [facility] Last Admin: 08/12/19 11:13 Dose: 1 amp Atorvastatin Calcium (Lipitor -) 10 mg PO [facility] Last Admin: 08/11/19 22:11 Dose: 10 mg Chlorhexidine Gluconate (Hibiclens For Decolonization -) 1 applic TP HS [facility] Last Admin: 08/11/19 22:12 Dose: Not Given Cholecalciferol (Vitamin D3 -) 2,000 unit PO DAILY [facility] Last Admin: 08/12/19 09:35 Dose: 2,000 unit Clopidogrel Bisulfate (Plavix -) 75 mg PO DAILY [facility] Last Admin: 08/12/19 09:34 Dose: 75 mg Docusate Sodium (Colace -) 100 mg PO DAILY [facility] Last Admin: 08/12/19 09:34 Dose: 100 mg Enoxaparin Sodium (Lovenox -) 40 mg SQ DAILY [facility] Last Admin: 08/12/19 09:33 Dose: 40 mg Ferrous Sulfate (Feosol -) 325 mg PO DAILY [facility] Last Admin: 08/12/19 09:34 Dose: 325 mg Piperacillin Sod/Tazobactam (Sod 3.375 gm/ Dextrose) 50 mls @ 100 mls/hr IVPB Q8H-IV [facility]; Protocol Last Admin: 08/12/19 09:33 Dose: 100 mls/hr Vancomycin HCl (Vancomycin (Pre-Docked)) 1,000 mg in 250 mls @ 166.667 mls/hr IVPB DAILY@1700 PADMINI; Protocol Last Admin: 08/11/19 16:38 Dose: 166.667 mls/hr Potassium Chloride 20 meq/ (Dextrose) 1,010 mls @ 42 mls/hr IVPB Q24H [facility] Last Admin: 08/11/19 17:43 Dose: 42 mls/hr Losartan Potassium (Cozaar -) 50 mg PO DAILY [facility] Last Admin: 08/12/19 09:34 Dose: 50 mg Metoprolol Succinate (Toprol Xl -) 50 mg PO DAILY [facility] Last Admin: 08/12/19 09:34 Dose: 50 mg Multivitamins (Total B With C -) 1 each PO DAILY [facility] Last Admin: 08/12/19 09:34 Dose: 1 each Multivitamins/Minerals/Vitamin C (Tab-A-Vit -) 1 tab PO DAILY [facility] Last Admin: 08/12/19 09:34 Dose: 1 tab Polyethylene Glycol (Miralax (For Daily Use) -) 17 gm PO DAILY PRN PRN Reason: CONSTIPATION Ranitidine HCl (Zantac -) 150 mg PO DAILY [facility] Last Admin: 08/12/19 09:34 Dose: 150 mg Sertraline HCl (Zoloft -) 100 mg PO DAILY [facility] Last Admin: 08/12/19 09:34 Dose: 100 mg a/p ?recurrent aspiration aspiration pneumonia ?chf ?early ARDS history of cva continue zosyn day #6 vancomycin added on monday check vanco level Problem List - Problems (1) Pneumonia Code(s): J18.9 - PNEUMONIA, UNSPECIFIED ORGANISM (2) History of CVA (cerebrovascular accident) Code(s): Z86.73 - PRSNL HX OF TIA (TIA), AND CEREB INFRC W/O RESID DEFICITS
[2019-08-12] MEDS: VANCOMYCIN 1 GRAM (PRE-DOCKED) 1,000 MG/250 ML BAG IVPB SCH (16:14)
[2019-08-12] MEDS: POTASSIUM CHLORIDE 20 MEQ in DEXTROSE 5%-WATER - 1,000 ML IVPB SCH (16:19)
[2019-08-12] MEDS: CHLORHEXIDINE GLUCONATE 4% CLEANSER FOR DECOLONIZATION TP SCH (21:58)
[2019-08-12] MEDS: ATORVASTATIN CA 10 MG TABLET (FP) PO SCH (21:58)
[2019-08-13] MEDS: ALBUTEROL SO4 2.5/IPRATROPIUM 0.5 INH SOL 3 ML VIAL.NEB. NEB SCH ×5 (00:17→15:59)
[2019-08-13] MEDS ORDERED: PIPERACILLIN/TAZOBACTAM 3.375 GM VIAL IVPB ONE ×2 (00:58→07:20)
[2019-08-13] MEDS ORDERED: DEXTROSE 5%-WATER - 50 ML IVPB ONE ×2 (00:59→07:20)
[2019-08-13] MEDS: PIPERACILLIN/TAZOB 3.375 GM 3.375 GM in DEXTROSE 5%-WATER - 50 ML IVPB SCH ×2 (01:33→09:15)
[2019-08-13 05:56] VITALS: TEMP 98.5
[2019-08-13 06:40] LABS: BASO % 0.1 % (0-2.0); EOS % 2.1 % (0-4.5); HEMATOCRIT 31.6 % (35.4-49); HEMOGLOBIN 10.5 GM/dL (11.7-16.9); LYMPH % 10.1 % (8-40); MCH 27.5 pg (25.7-33.7); MCHC 33.3 g/dl (32.0-35.9); MEAN CELL VOLUME 82.6 fl (80-96); MEAN PLT VOLUME 7.7 fl (7.5-11.1); MONO % 5.4 % (3.8-10.2); NEUT % 82.3 % (42.8-82.8); PLATELET COUNT 213 K/MM3 (134-434); RBC 3.83 M/mm3 (4.00-5.60); RDW 19.3 % (11.9-15.9); WHITE BLOOD COUNT 9.9 K/mm3 (4.0-10.0)
[2019-08-13 07:07] LABS: ALBUMIN 2.7 g/dl (3.4-5.0); BILIRUBIN,TOTAL 0.5 mg/dL (0.2-1); BLOOD UREA NITROGEN 19.3 mg/dL (7-18); CALCIUM 8.4 mg/dL (8.5-10.1); CREATININE 0.9 mg/dL (0.55-1.3); MAGNESIUM 2.3 mg/dL (1.8-2.4); POTASSIUM 3.1 mmol/L (3.5-5.1); TOT PROT 6.1 g/dl (6.4-8.2)
[2019-08-13 08:04] VITALS: BP 149/78
[2019-08-13 08:33] VITALS: PULSE 64
[2019-08-13] MEDS: VITAMIN B COMPLEX W/C COMBO TABLET (FP) PO SCH (09:14)
[2019-08-13] MEDS: LOSARTAN POTASSIUM 50 MG TABLET (FP) PO SCH (09:15)
[2019-08-13] MEDS: CLOPIDOGREL BISULFATE 75 MG TABLET (FP) PO SCH (09:15)
[2019-08-13] MEDS: DOCUSATE SODIUM 100 MG CAPSULE (FP) PO SCH (09:15)
[2019-08-13] MEDS: MULTIVITAMINS (DAILY MVI) TABLET (FP) PO SCH (09:15)
[2019-08-13] MEDS: CHOLECALCIFEROL (VIT D3) 1,000 UNIT (25 MCG) TABLET PO SCH (09:15)
[2019-08-13] MEDS: FERROUS SO4 325 MG TABLET (FP) PO SCH (09:15)
[2019-08-13] MEDS: RANITIDINE HCL 150 MG TABLET (FP) PO SCH (09:15)
[2019-08-13] MEDS: SERTRALINE HCL 50 MG TABLET (FP) PO SCH (09:15)
[2019-08-13] MEDS: ENOXAPARIN NA (PORCINE) 40 MG/0.4 ML DISP.SYRIN SQ SCH (09:16)
--- NOTE | 2019-08-13 10:34 | PN ---
Teaching Attending Note Name of Resident: Arslan Hilario ATTENDING PHYSICIAN STATEMENT I saw and evaluated the patient. I reviewed the resident's note and discussed the case with the resident. I agree with the resident's findings and plan as documented with exceptions below. SUBJECTIVE: Patient seen and examined. awake, pleasant, breathing better, smiling, no complaints. OBJECTIVE: Vital Signs Period Temp Pulse Resp BP Sys/Herrmann Pulse Ox Last 24 Hr 97.4 F-98.5 F 56-80 17-18 141-160/77-97 95-98 Intake & Output 08/10/19 08/11/19 08/12/19 08/13/19 23:59 23:59 23:59 23:59 Intake Total 583 1424 2578 374 Balance 583 1424 2578 374 Weight 132 lb 4.438 oz General: sitting in bed, pleasant, smiling, no use of acessory muscles or respiratory distress currently Neck: soft, supple, no JVD Chest: improved air entry, few scattered rales, no wheezing Abdomen:soft, NT Extremities: no edema Home Medications Medication Instructions Recorded Atorvastatin Ca [Lipitor] 10 mg PO HS 08/07/19 B1/B2/Niacin/B12/Protease 1 each PO DAILY 08/07/19 [B-Complex with B-12 Tablet] Chlorpromazine HCl 25 mg PO DAILY 08/07/19 Cholecalciferol (Vitamin D3) 2,000 unit PO DAILY 08/07/19 [Vitamin D] Clopidogrel Bisulfate [Plavix -] 75 mg PO DAILY 08/07/19 Docusate Sodium [Colace] 100 mg PO DAILY 08/07/19 Famotidine [Pepcid] 40 mg PO DAILY 08/07/19 Ferrous Sulfate 325 mg PO DAILY 08/07/19 Losartan Potassium [Cozaar -] 50 mg PO DAILY 08/07/19 Metoprolol Succinate [Toprol Xl] 50 mg PO DAILY 08/07/19 Multivitamin [One-Daily 1 each PO DAILY 08/07/19 Multi-Vitamin] Polyethylene Glycol 3350 [Miralax 17 gm PO PRN 08/07/19 (For Daily Use) -] Potassium Chloride 10 meq PO DAILY 08/07/19 Sertraline HCl [Zoloft] 100 mg PO DAILY 08/07/19 Tramadol HCl [Ultram] 50 mg PO BID 09/11/19 Active Medications Acetaminophen (Ofirmev Injection -) 1,000 mg IVPB Q6H PRN PRN Reason: FEVER Last Admin: 08/12/19 03:07 Dose: 1,000 mg Albuterol/Ipratropium (Duoneb -) 1 amp NEB Q4H PRN PRN Reason: SHORTNESS OF BREATH Albuterol/Ipratropium (Duoneb -) 1 amp NEB RQ4H [facility] Last Admin: 08/13/19 07:47 Dose: 1 amp Atorvastatin Calcium (Lipitor -) 10 mg PO HS [facility] Last Admin: 08/12/19 21:58 Dose: 10 mg Chlorhexidine Gluconate (Hibiclens For Decolonization -) 1 applic TP HS [facility] Last Admin: 08/12/19 21:58 Dose: Not Given Cholecalciferol (Vitamin D3 -) 2,000 unit PO DAILY [facility] Last Admin: 08/13/19 09:15 Dose: 2,000 unit Clopidogrel Bisulfate (Plavix -) 75 mg PO DAILY [facility] Last Admin: 08/13/19 09:15 Dose: 75 mg Docusate Sodium (Colace -) 100 mg PO DAILY [facility] Last Admin: 08/13/19 09:15 Dose: 100 mg Enoxaparin Sodium (Lovenox -) 40 mg SQ DAILY [facility] Last Admin: 08/13/19 09:16 Dose: 40 mg Ferrous Sulfate (Feosol -) 325 mg PO DAILY [facility] Last Admin: 08/13/19 09:15 Dose: 325 mg Piperacillin Sod/Tazobactam (Sod 3.375 gm/ Dextrose) 50 mls @ 100 mls/hr IVPB Q8H-IV [facility]; Protocol Last Admin: 08/13/19 09:15 Dose: 100 mls/hr Vancomycin HCl (Vancomycin (Pre-Docked)) 1,000 mg in 250 mls @ 166.667 mls/hr IVPB DAILY@1700 [facility]; Protocol Last Admin: 08/12/19 16:14 Dose: 166.667 mls/hr Potassium Chloride 20 meq/ (Dextrose) 1,010 mls @ 42 mls/hr IVPB Q24H [facility] Last Admin: 08/12/19 16:19 Dose: 42 mls/hr Losartan Potassium (Cozaar -) 50 mg PO DAILY [facility] Last Admin: 08/13/19 09:15 Dose: 50 mg Metoprolol Succinate (Toprol Xl -) 50 mg PO DAILY [facility] Last Admin: 08/13/19 09:15 Dose: 50 mg Multivitamins (Total B With C -) 1 each PO DAILY [facility] Last Admin: 08/13/19 09:14 Dose: 1 each Multivitamins/Minerals/Vitamin C (Tab-A-Vit -) 1 tab PO DAILY [facility] Last Admin: 08/13/19 09:15 Dose: 1 tab Polyethylene Glycol (Miralax (For Daily Use) -) 17 gm PO DAILY PRN PRN Reason: CONSTIPATION Ranitidine HCl (Zantac -) 150 mg PO DAILY [facility] Last Admin: 08/13/19 09:15 Dose: 150 mg Sertraline HCl (Zoloft -) 100 mg PO DAILY [facility] Last Admin: 08/13/19 09:15 Dose: 100 mg Laboratory Results - last 24 hr 08/13/19 08/13/19 05:30 06:10 WBC 9.9 RBC 3.83 L Hgb 10.5 L Hct 31.6 L MCV 82.6 MCH 27.5 MCHC 33.3 RDW 19.3 H Plt Count 213 MPV 7.7 Absolute Neuts (auto) 8.1 H Neutrophils % 82.3 Lymphocytes % 10.1 D Monocytes % 5.4 Eosinophils % 2.1 D Basophils % 0.1 Nucleated RBC % 0 Sodium 147 H Potassium 3.1 L Chloride 114 H Carbon Dioxide 27 Anion Gap 6 L BUN 19.3 H Creatinine 0.9 Est GFR (CKD-EPI)AfAm 95.15 Est GFR (CKD-EPI)NonAf 82.09 Random Glucose 114 H Calcium 8.4 L Magnesium 2.3 Total Bilirubin 0.5 AST 23 ALT 48 Alkaline Phosphatase 57 Total Protein 6.1 L Albumin 2.7 L Microbiology 08/12/19 07:10 Blood - Peripheral Venous Blood Culture - Preliminary NO GROWTH OBTAINED AFTER 24 HOURS, INCUBATION TO CONTINUE FOR 4 DAYS. 08/12/19 05:20 Blood - Peripheral Venous Blood Culture - Preliminary NO GROWTH OBTAINED AFTER 24 HOURS, INCUBATION TO CONTINUE FOR 4 DAYS. 08/09/19 12:30 Blood - Peripheral Venous Blood Culture - Preliminary NO GROWTH OBTAINED AFTER 72 HOURS, INCUBATION TO CONTINUE FOR 2 DAYS. 08/09/19 12:43 Blood - Peripheral Venous Blood Culture - Preliminary NO GROWTH OBTAINED AFTER 72 HOURS, INCUBATION TO CONTINUE FOR 2 DAYS. 08/07/19 00:35 Blood - Peripheral Venous Blood Culture - Final NO GROWTH AFTER 5 DAYS INCUBATION 08/07/19 00:35 Blood - Peripheral Venous Blood Culture - Final NO GROWTH AFTER 5 DAYS INCUBATION 08/09/19 12:00 Urine - Urine Clean Catch Urine Culture - Final NO GROWTH OBTAINED 08/07/19 01:05 Urine - Urine Clean Catch Urine Culture - Final NO GROWTH OBTAINED 08/07/19 16:30 Urine - Urine Clean Catch Legionella Antigen - Final 08/07/19 16:30 Urine - Urine Clean Catch Streptococcus pneumoniae Antigen ( M - Final CXR results and images reviewed, improved exam ASSESSMENT AND PLAN: 78 yom, [place] resident, with 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 Cultures neg. Discuss with ID for transition to PO abx. Tolerating diet well. COntinue dysphagia pureed with aspiration precautions Replete K 2D echo noted. Standing and prn nebs. Hold off on steroids given improvement. Metoprolol/losartan as hemodynamics tolerate. DVTPPX heparin Dispo dc back to [facility] today pending ID input. Discussed with nursing.
--- NOTE | 2019-08-13 11:22 | PN ---
Progress Note, Physician History of Present Illness: PULMONARY AWAKE CONFUSED ,-RESP DISTRESS - Current Medication List Current Medications: Active Medications Acetaminophen (Ofirmev Injection -) 1,000 mg IVPB Q6H PRN PRN Reason: FEVER Last Admin: 08/12/19 03:07 Dose: 1,000 mg Albuterol/Ipratropium (Duoneb -) 1 amp NEB Q4H PRN PRN Reason: SHORTNESS OF BREATH Albuterol/Ipratropium (Duoneb -) 1 amp NEB RQ4H [facility] Last Admin: 08/13/19 07:47 Dose: 1 amp Atorvastatin Calcium (Lipitor -) 10 mg PO HS [facility] Last Admin: 08/12/19 21:58 Dose: 10 mg Chlorhexidine Gluconate (Hibiclens For Decolonization -) 1 applic TP HS [facility] Last Admin: 08/12/19 21:58 Dose: Not Given Cholecalciferol (Vitamin D3 -) 2,000 unit PO DAILY [facility] Last Admin: 08/13/19 09:15 Dose: 2,000 unit Clopidogrel Bisulfate (Plavix -) 75 mg PO DAILY [facility] Last Admin: 08/13/19 09:15 Dose: 75 mg Docusate Sodium (Colace -) 100 mg PO DAILY [facility] Last Admin: 08/13/19 09:15 Dose: 100 mg Enoxaparin Sodium (Lovenox -) 40 mg SQ DAILY [facility] Last Admin: 08/13/19 09:16 Dose: 40 mg Ferrous Sulfate (Feosol -) 325 mg PO DAILY [facility] Last Admin: 08/13/19 09:15 Dose: 325 mg Piperacillin Sod/Tazobactam (Sod 3.375 gm/ Dextrose) 50 mls @ 100 mls/hr IVPB Q8H-IV [facility]; Protocol Last Admin: 08/13/19 09:15 Dose: 100 mls/hr Vancomycin HCl (Vancomycin (Pre-Docked)) 1,000 mg in 250 mls @ 166.667 mls/hr IVPB DAILY@1700 [facility]ADMIN[facility]; Protocol Last Admin: 08/12/19 16:14 Dose: 166.667 mls/hr Potassium Chloride 20 meq/ (Dextrose) 1,010 mls @ 42 mls/hr IVPB Q24H [facility] Last Admin: 08/12/19 16:19 Dose: 42 mls/hr Losartan Potassium (Cozaar -) 50 mg PO DAILY [facility] Last Admin: 08/13/19 09:15 Dose: 50 mg Metoprolol Succinate (Toprol Xl -) 50 mg PO DAILY [facility] Last Admin: 08/13/19 09:15 Dose: 50 mg Multivitamins (Total B With C -) 1 each PO DAILY [facility] Last Admin: 08/13/19 09:14 Dose: 1 each Multivitamins/Minerals/Vitamin C (Tab-A-Vit -) 1 tab PO DAILY [facility] Last Admin: 08/13/19 09:15 Dose: 1 tab Polyethylene Glycol (Miralax (For Daily Use) -) 17 gm PO DAILY PRN PRN Reason: CONSTIPATION Potassium Chloride (Potassium Chloride Oral Liquid) 40 meq PO BID [facility] Stop: 08/13/19 22:01 Ranitidine HCl (Zantac -) 150 mg PO DAILY [facility] Last Admin: 08/13/19 09:15 Dose: 150 mg Sertraline HCl (Zoloft -) 100 mg PO DAILY [facility] Last Admin: 08/13/19 09:15 Dose: 100 mg - Objective Vital Signs: Vital Signs Temperature 98.5 F 08/13/19 08:02 Pulse Rate 64 08/13/19 08:29 Respiratory Rate 18 08/13/19 08:05 Blood Pressure 149/78 08/13/19 08:02 O2 Sat by Pulse Oximetry (%) 98 08/13/19 08:29 Constitutional: Yes: Calm, Thin Eyes: Yes: WNL HENT: Yes: WNL Neck: Yes: WNL Cardiovascular: Yes: Regular Rate and Rhythm, S1, S2 Respiratory: Yes: Rales (BILATERAL CRACKLES 1/3 UP) Gastrointestinal: Yes: Normal Bowel Sounds, Soft Extremities: Yes: WNL Edema: No Labs: CBC, BMP 08/13/19 05:30 08/13/19 06:10 - ....Imaging Chest X-ray: Report Reviewed, Image Reviewed Problem List - Problems (1) Aspiration pneumonia Code(s): J69.0 - PNEUMONITIS DUE TO INHALATION OF FOOD AND VOMIT (2) History of CVA (cerebrovascular accident) Code(s): Z86.73 - PRSNL HX OF TIA (TIA), AND CEREB INFRC W/O RESID DEFICITS (3) Pneumonia Code(s): J18.9 - PNEUMONIA, UNSPECIFIED ORGANISM (4) HTN (hypertension) Code(s): I10 - ESSENTIAL (PRIMARY) HYPERTENSION Qualifiers: Hypertension type: essential hypertension (5) Acute respiratory failure Code(s): J96.00 - ACUTE RESPIRATORY FAILURE, UNSP W HYPOXIA OR HYPERCAPNIA Assessment/Plan ASSESSMENT/PLAN: Acute Respiratory Failure due to ARDS due to possible Aspiration Pneumonitis improving Basal cell carcinoma Blindness CVA Hypertension Colon CA HPL NC O2 NIPPV support as needed Aspiration precautions ABX Per ID Follow I & O Monitor lytes ,cbc DR OLGUIN
[2019-08-13] MEDS ORDERED: POTASSIUM CHLORIDE ORAL LIQUID 20 MEQ/15 ML PO SCH (11:30)
--- NOTE | 2019-08-13 13:10 | PN ---
Progress Note, [facility] - Note Progress Note: Selected Entries 08/12/19 08/12/19 08/12/19 02:00 08:02 10:26 Breakfast 100% 100% Lunch Supper Temperature 100.3 F H 98.6 F 08/12/19 08/12/19 08/12/19 13:46 14:47 18:00 Breakfast Lunch 100% Supper 25% Temperature 98.1 F 97.4 F L 08/12/19 08/13/19 08/13/19 22:00 02:13 05:53 Breakfast Lunch Supper Temperature 98.3 F 98 F 98.5 F 08/13/19 08/13/19 08:02 12:19 Breakfast 75% Lunch Supper 25% Temperature 98.5 F Laboratory Tests 08/12/19 08/13/19 05:25 05:30 WBC 9.9 9.9 Pt on Puree/honey thick liquid. CXR- improved
--- NOTE | 2019-08-13 14:01 | PN ---
Progress Note (short form) - Note Progress Note: alert nad Vital Signs Period Temp Pulse Resp BP Sys/Herrmann Pulse Ox Last 24 Hr 97.4 F-98.5 F 56-80 18-18 146-160/77-97 95-98 cor-rrr lungs decreased bs at bases abd soft,nt ext no edema CBC, BMP 08/13/19 05:30 08/13/19 06:10 Microbiology 08/09/19 12:43 Blood - Peripheral Venous Blood Culture - Preliminary NO GROWTH OBTAINED AFTER 96 HOURS, INCUBATION TO CONTINUE FOR 1 DAYS. 08/09/19 12:30 Blood - Peripheral Venous Blood Culture - Preliminary NO GROWTH OBTAINED AFTER 96 HOURS, INCUBATION TO CONTINUE FOR 1 DAYS. 08/12/19 07:10 Blood - Peripheral Venous Blood Culture - Preliminary NO GROWTH OBTAINED AFTER 24 HOURS, INCUBATION TO CONTINUE FOR 4 DAYS. 08/12/19 05:20 Blood - Peripheral Venous Blood Culture - Preliminary NO GROWTH OBTAINED AFTER 24 HOURS, INCUBATION TO CONTINUE FOR 4 DAYS. 08/07/19 00:35 Blood - Peripheral Venous Blood Culture - Final NO GROWTH AFTER 5 DAYS INCUBATION 08/07/19 00:35 Blood - Peripheral Venous Blood Culture - Final NO GROWTH AFTER 5 DAYS INCUBATION 08/09/19 12:00 Urine - Urine Clean Catch Urine Culture - Final NO GROWTH OBTAINED 08/07/19 01:05 Urine - Urine Clean Catch Urine Culture - Final NO GROWTH OBTAINED 08/07/19 16:30 Urine - Urine Clean Catch Legionella Antigen - Final 08/07/19 16:30 Urine - Urine Clean Catch Streptococcus pneumoniae Antigen ( M - Final MBS with silent aspiration cxray/chest ct with bilateral patchy infiltrates cxray bilateral infiltrates- improved a/p ?recurrent aspiration aspiration pneumonia history of cva continue zosyn day #7 can change to po augmentin for another 72 hours Problem List - Problems (1) Pneumonia Code(s): J18.9 - PNEUMONIA, UNSPECIFIED ORGANISM (2) History of CVA (cerebrovascular accident) Code(s): Z86.73 - PRSNL HX OF TIA (TIA), AND CEREB INFRC W/O RESID DEFICITS
== END 2019-08-13 17:03 | DRG 871 ==
LOC: JER 00:08 → JERBED 02:28 → J7W 16:33 → JICU 08-09 10:56 → J4W 08-10 12:13
PROVIDERS: ADMIT Internal Medicine; ATTEND Hospitalist
DX: A41.9 Sepsis, unspecified organism (principal); J69.0 Pneumonitis due to inhalation of food and vomit; J96.01 Acute respiratory failure with hypoxia; I69.354 Hemiplegia and hemiparesis following cerebral infarction affecting left non-dominant side; E87.2 Acidosis; E87.0 Hyperosmolality and hypernatremia; R50.9 Fever, unspecified; F41.8 Other specified anxiety disorders; E78.00 Pure hypercholesterolemia, unspecified; R00.0 Tachycardia, unspecified; I10 Essential (primary) hypertension; E78.5 Hyperlipidemia, unspecified; H54.8 Legal blindness, as defined in USA; E87.6 Hypokalemia; E83.39 Other disorders of phosphorus metabolism; Z85.038 Personal history of other malignant neoplasm of large intestine; Z85.3 Personal history of malignant neoplasm of breast
CPT/HCPCS: 36415; 36600; 71045-TC-FY; 71275-TC; 74230-TC-FY; 80048; 80053; 81003; 82803; 83605; 83735; 83880; 84100; 84484; 85025; 87040; 87086; 87899; 92611-GN; 93005; 93010; 93306-TC; 94640; 94660; 94761; 97116-GP; 97162-GP; 99283-25; J0131; J7030

== ENCOUNTER 2020-01-19 19:52 | Emergency (ER) | payer OTHER ==
[2020-01-19 20:08] VITALS: TEMP 97.8; BMI 19.8
--- NOTE | 2020-01-19 20:09 | PDOC ---
History of Present Illness - General Chief Complaint: Injury Stated Complaint: injury Time Seen by Provider: 01/19/20 20:09 History Source: Patient - History of Present Illness Initial Comments: 01/19/20 21:28 Mr. Wilcox is a 79 y/o M w/hx CVA, HTN, HLD, dementia transferred from nursing facility after blood was found on his pillow by an aid today. He is unable to contribute history due to baseline mental status. Per EMS, an aid reported that there was blood on this pillow today, and they were concerned that he may have fallen. He is not ambulatory at baseline and was found back in the bed. Past History - Past Medical History Allergies/Adverse Reactions: Allergies Allergy/AdvReac Type Severity Reaction Status Date / Time No Known Allergies Allergy Verified 01/19/20 19:58 Home Medications: Ambulatory Orders Atorvastatin Ca [Lipitor] 10 mg PO HS 08/07/19 B1/B2/Niacin/B12/Protease [B-Complex with B-12 Tablet] 1 each PO DAILY 08/07/19 Chlorpromazine HCl 25 mg PO DAILY 08/07/19 Cholecalciferol (Vitamin D3) [Vitamin D3] 2,000 unit PO DAILY 08/07/19 Clopidogrel Bisulfate [Plavix -] 75 mg PO DAILY 08/07/19 Docusate Sodium [Colace] 100 mg PO DAILY 08/07/19 Famotidine [Pepcid] 40 mg PO DAILY 08/07/19 Ferrous Sulfate 325 mg PO DAILY 08/07/19 Losartan Potassium [Cozaar -] 50 mg PO DAILY 08/07/19 Metoprolol Succinate [Toprol Xl] 50 mg PO DAILY 08/07/19 Multivitamin [One-Daily Multi-Vitamin] 1 each PO DAILY 08/07/19 Polyethylene Glycol 3350 [Miralax 119 gm Btl -] 17 gm PO PRN 08/07/19 Potassium Chloride 10 meq PO DAILY 08/07/19 Sertraline HCl [Zoloft] 100 mg PO DAILY 08/07/19 Tramadol HCl [Ultram] 50 mg PO BID 08/07/19 Amoxicillin/Potassium Clav [Augmentin 500-125 Tablet] 1 each PO BID #6 tablet Cephalexin Monohydrate [Keflex -] 500 mg PO Q8H #21 capsule 01/20/20 Cephalexin [Keflex] 500 mg PO TID 7 Days #21 capsule 01/20/20 Cancer: Yes (basal cell carcinoma of breast) CVA: Yes (tia, 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) COPD: No HTN: Yes Hypercholesterolemia: Yes Psychiatric Problems: Yes (anxiety, major depressive disorder) - Surgical History Appendectomy: Yes - Psycho Social/Smoking Cessation Hx Smoking History: Never smoked Have you smoked in the past 12 months: No If you are a former smoker, when did you quit?: 50-60 years ago Hx Alcohol Use: No Drug/Substance Use Hx: No Substance Use Type: None Hx Substance Use Treatment: No Review of Systems - Review of Systems Able to Perform ROS?: No (Mental status/Dementia) *Physical Exam - Vital Signs Last Vital Signs Temp Pulse Resp BP Pulse Ox 97.8 F 72 18 180/90 H 99 01/19/20 19:58 01/19/20 19:58 01/19/20 19:58 01/19/20 19:58 01/19/20 19:58 - Physical Exam 01/19/20 21:31 PE: GENERAL: Awake, alert, in no acute distress HEAD: No signs of trauma, normocephalic, atraumatic EYES: PERRLA, EOMI, sclera anicteric, conjunctiva clear ENT: Auricles normal inspection, hearing grossly normal, nares patent, oropharynx clear without exudates. Moist mucosa NECK: Normal ROM, supple, no lymphadenopathy, JVD, or masses LUNGS: No distress, speaks full sentences, clear to auscultation bilaterally HEART: Regular rate and rhythm, normal S1 and S2, no murmurs, rubs or gallops, peripheral pulses normal and equal bilaterally. ABDOMEN: Soft, nontender, normoactive bowel sounds. No guarding, no rebound. No masses EXTREMITIES : Normal inspection, Normal range of motion, no edema. No clubbing or cyanosis NEUROLOGICAL: Cranial nerves II through XII grossly intact. Normal speech, no focal sensorimotor deficits SKIN: Warm, Dry, normal turgor, no rashes or lesions noted ED Treatment Course - LABORATORY CBC & Chemistry Diagram: 01/19/20 20:48 01/19/20 20:48 Medical Decision Making - Medical Decision Making 01/19/20 21:35 79M w.hx dementia, HTN, HLD p/w blood found on pillow, without head/neck tenderness. Ddx unwitnessed fall, although patient is not ambulatory and would not likely have been able to climb back onto the bed without assistance. Lower GI bleed or nosebleed also possible. Upper GI bleed unlikely without dried blood or other findings on exam. Plan: CBC [facility] CT Head FOBT Dispo: Discharge --- FOBT negative 01/19/20 21:59 CBC - WBC 17, Hg 11 (baseline) Plan for UA pending CXR CMP - wnl 01/20/20 00:26 UA - 2+ Leuk esterase, 3+ blood, +nitrites 1g ceftriaxone IV ordered Plan for Keflex outpatient medication, discharge back to nursing facility Discharge - Discharge Information Problems reviewed: Yes Clinical Impression/Diagnosis: Fall Qualifiers: Encounter type: initial encounter Qualified Code(s): W19.XXXA - Unspecified fall, initial encounter UTI (urinary tract infection) Qualifiers: Urinary tract infection type: acute cystitis Hematuria presence: with hematuria Qualified Code(s): N30.01 - Acute cystitis with hematuria Condition: Stable Disposition: HOME - Admission No - Additional Discharge Information Prescriptions: Cephalexin [Keflex] 500 mg PO TID 7 Days #21 capsule Cephalexin Monohydrate [Keflex -] 500 mg PO Q8H #21 capsule - Follow up/Referral - Patient Discharge Instructions Patient Printed Discharge Instructions: How to Prevent Falls Additional Instructions: You were seen in the ER after there was concern for a fall. Your head CT was negative. Your bloodwork was normal. Your urine showed a urine infection. We gave a dose of your medication here and sent a prescription to your pharmacy. Please return to the ER if you develop high fevers, weakness, intractable vomiting, chest pain, trouble breathing. - Post Discharge Activity
--- NOTE | 2020-01-19 20:39 | PDOC ---
Documentation entered by Laisha Schneider SCRIBE, acting as scribe for Anastasia Torres MD. Anastasia Torres MD: This documentation has been prepared by the scribe, Laisha Schneider SCRIBE, under my direction and personally reviewed by me in its entirety. I confirm that the documentation accurately reflects all work, treatment, procedures, and medical decision making performed by me. Attending Attestation - Resident Resident Name: Molina Zapien - ED Attending Attestation I have performed the following: I have examined & evaluated the patient, The case was reviewed & discussed with the resident, I agree w/resident's findings & plan, Exceptions are as noted - HPI HPI: 01/19/20 20:33 The patient is a 79-year-old male with a past medical history significant for Basal cell carcinoma, blindness, stroke, HTN, colon CA, HLD, who presents to the emergency department via EMS for evaluation. The NH aide found blood on the patient's pillow and sent the patient over for evaluation. - Physicial Exam PE: 01/19/20 20:31 GENERAL: Thin, 79 year old male, laying on his right side with contracted extremities. HEENT: Superficial 5mm abrasion on the left side of the forehead. Normocephalic, atraumatic. CARDIOVASCULAR: Regular rate and rhythm. PULMONARY: Clear to auscultation bilaterally. No wheezing or crackles. ABDOMEN: flat, soft abdomen. EXTREMITIES: contracted legs, bend in a position, no signs of lower extremity edema. SKIN: Warm, dry. No rash NEUROLOGICAL: Alert and oriented x1. - Medical Decision Making 01/19/20 20:30 79-year-old male brought in by ambulance from the intermediate in no acute distress Past medical history significant for hypertension, CVA with left hemiparesis, hyperlipidemia, pneumonia, blindness, colon cancer, pneumonia 01/19/20 20:39 Patient is not ambulatory at baseline. Will check labs to make sure the patient does not have a significant anemia. There is no active bleeding at this time. Rectal exam showed brown stool and stool Hemoccult was sent to the lab 01/19/20 22:32 CAT scan of the head findings 1 no evidence of acute intracranial hemorrhage 2 significant ventriculomegaly and periventricular hypodensity, which appears out of proportion to the amount of volume loss. 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
[2020-01-19 21:28] LABS: BASO % 0.3 % (0-2.0); EOS % 0.2 % (0-4.5); HEMATOCRIT 33.8 % (35.4-49); HEMOGLOBIN 11.2 GM/dL (11.7-16.9); LYMPH % 3.6 % (8-40); MCH 25.8 pg (25.7-33.7); MEAN CELL VOLUME 78.2 fl (80-96); MONO % 3.9 % (3.8-10.2); PLATELET COUNT 274 K/MM3 (134-434); RBC 4.32 M/mm3 (4.00-5.60); RDW 19.6 % (11.9-15.9); WHITE BLOOD COUNT 17.5 K/mm3 (4.0-10.0)
[2020-01-19 21:56] LABS: ALBUMIN 3.4 g/dl (3.4-5.0); BILIRUBIN,TOTAL 0.4 mg/dL (0.2-1); BLOOD UREA NITROGEN 16.2 mg/dL (7-18); CALCIUM 9.1 mg/dL (8.5-10.1); CREATININE 0.9 mg/dL (0.55-1.3); POTASSIUM 4.2 mmol/L (3.5-5.1); TOT PROT 7.6 g/dl (6.4-8.2)
[2020-01-19 22:20] LABS: ANISOCYTOSIS 3+; MACROCYTOSIS 0
[2020-01-20] LABS: EPI CELLS 0.3 /HPF (0-5/HPF); HYALINE CASTS 1 /lpf (0-8); PH,URINE 5.5 (5.0-8.0); URINE APPEARANCE CLOUDY; URINE BACTERIA 5099.7 /hpf (NEGATIVE); URINE BILIRUBIN NEGATIVE (NEGATIVE); URINE COLOR YELLOW; URINE GLUCOSE (UA) NEGATIVE (NEGATIVE); URINE KETONE NEGATIVE (NEGATIVE); URINE LEUK ESTERASE 2+ (NEGATIVE); URINE NITRITE POSITIVE (NEGATIVE); URINE PROTEIN NEGATIVE (NEGATIVE); URINE RBC 224 /hpf (0-4); URINE UROBILINOGEN 0.2 mg/dL (0.2-1.0); URINE WBC 194 /hpf (0-5)
[2020-01-20] MEDS ORDERED: CEFTRIAXONE 1,000 MG in DEXTROSE 5%-WATER - 50 ML IVPB ONE (00:01)
[2020-01-20] MEDS ORDERED: CEFTRIAXONE 1 GM/50 ML BAG ONE (00:24)
[2020-01-20 01:29] VITALS: BP 157/87; PULSE 75
== END 2020-01-20 01:28 | disposition home or self-care (01) ==
LOC: JER 19:52
DX: N30.01 Acute cystitis with hematuria (principal); I10 Essential (primary) hypertension; E78.5 Hyperlipidemia, unspecified; F03.90 Unspecified dementia, unspecified severity, without behavioral disturbance, psychotic disturbance, mood disturbance, and anxiety; I69.854 Hemiplegia and hemiparesis following other cerebrovascular disease affecting left non-dominant side; F41.8 Other specified anxiety disorders; F32.9 Major depressive disorder, single episode, unspecified; Z85.828 Personal history of other malignant neoplasm of skin; Z74.01 Bed confinement status
CPT/HCPCS: 36415; 70450-TC; 71045-TC-FY; 80053; 81003; 82272; 85025; 96365; 99285-25